=== PATIENT | female | born 1965 | race Caucasian/White ===

== ENCOUNTER 2020-11-05 11:38 | Outpatient (REF) | payer OTHER, SELFPAY | END 2020-11-05 11:39 | disposition home or self-care (01) | LOC: HO.HMGCLDS 11:38 | PROVIDERS: PCP Internal Medicine; Visit Provider Surgery | DX: Z13.89 Encounter for screening for other disorder (principal) ==

== ENCOUNTER 2020-11-06 07:03 | Outpatient (REF) | payer OTHER, SELFPAY ==
[2020-11-06 11:14] LABS: MANUAL DIFF FLAG NO
[2020-11-06 11:25] LABS: Basophils Absolute Auto 0.1 X10*3/uL (0.0-0.2); Basophils Percent Auto 0.8 % (0-2); Eosinophils Absolute Auto 0.2 X10*3/uL (0.0-0.4); Eosinophils Percent Auto 2.7 % (0-4); Hematocrit 42.4 % (37-47); Hemoglobin 13.5 g/dl (12.0-16.0); Imm Gran Abs Auto 0.02 X10*3/uL (0.00-0.03); Imm Gran Pct Auto 0.3 % (0.0-0.4); Lymphocytes Absolute Auto 2.4 X10*3/uL (1.2-4.9); Lymphocytes Percent Auto 36.7 % (20-40); Mean Corpuscular HGB Conc 31.8 g/dl (31.0-35.0); Mean Corpuscular Hemoglobin 30.5 pg (27.0-33.0); Mean Corpuscular Volume 95.7 fL (80-98); Mean Platelet Volume 10.4 fL (9.4-12.3); Monocytes Absolute Auto 0.7 X10*3/uL (0.1-1.2); Monocytes Percent Auto 10.6 % (2-11); Neutrophils Absolute Auto 3.3 X10*3/uL (2.0-8.3); Neutrophils Percent Auto 48.9 % (45-73); Platelet Count 294 X10*3/uL (160-400); Red Blood Count 4.43 X10*6/uL (4.20-5.50); Red Cell Distribution Width 13.1 % (11.0-16.0); White Blood Count 6.6 X10*3/uL (4.8-10.8)
[2020-11-06 11:39] LABS: Estimated Average Glucose 154 mg/dL
[2020-11-06 12:06] LABS: Alanine Aminotransferase 20 U/L (0-31); Albumin Level 3.8 g/dL (3.5-5.0); Alkaline Phosphatase 78 U/L (39-117); Anion Gap 14 (12-20); Aspartate Amino Transferase 14 U/L (5-31); Bilirubin Total 0.2 mg/dL (0.0-1.0); Blood Urea Nitrogen 8 mg/dL (9-16); Calcium 8.9 mg/dL (8.4-10.2); Carbon Dioxide 26 mmol/L (22-29); Chloride 103 mmol/L (96-108); Cholesterol 165 mg/dL; Estimated Glomerular Filt Rate > 60; Glucose Fasting 137 mg/dL (60-99); HDL Cholesterol 56 mg/dL; Iron 56 mcg/dL (30-160); LDL Cholesterol Calculated 95 mg/dl; Magnesium 1.9 mg/dL (1.6-2.6); Percent Iron Saturation 19 % (15-50); Potassium 4.4 mmol/l (3.3-5.1); Sodium 139 mmol/L (135-145); Total Iron Binding Capacity 301 mcg/dL (228-428); Total Protein 6.4 g/dL (6.5-8.0); Triglycerides 73 mg/dL; Unsaturated Iron Binding 245 ug/dL
[2020-11-06 12:07] LABS: Ferritin 66 ng/mL (10-250); Thyroid Stimulating Hormone 1.21 uIU/mL (0.32-4.0); Vitamin D 25-OH Total 23.1 ng/mL (>30)
[2020-11-06 12:14] LABS: Creatinine Urine 103.08 mg/dL; Microalbum/Creatinine Ratio Ur 5.8 ug/mg cr
[2020-11-06 13:17] LABS: Folate 9.5 ng/mL (> or = 4.0); Vitamin B12 485 pg/mL (200-900)
[2020-11-10 15:02] LABS: Cotinine <2 ng/mL; Nicotine <2 ng/mL
== END 2020-11-06 07:04 | disposition home or self-care (01) ==
LOC: HO.HMGCLDS 07:03
PROVIDERS: PCP Internal Medicine; Visit Provider Surgery
DX: Z01.818 Encounter for other preprocedural examination (principal); E66.01 Morbid (severe) obesity due to excess calories; E11.65 Type 2 diabetes mellitus with hyperglycemia
CPT/HCPCS: 36415; 80053; 80061; 80323; 82043; 82306; 82533; 82607; 82728; 82746; 83036; 83540; 83735; 84443; 85025

== ENCOUNTER → 2020-11-08 13:01 | Outpatient (BNVA) | payer OTHER, SELFPAY | PROVIDERS: PCP Internal Medicine; Referring Provider Internal Medicine; Visit Provider Internal Medicine Gastroenterology | DX: Z76.89 Persons encountering health services in other specified circumstances (principal) ==

== ENCOUNTER 2020-11-15 11:17 | Outpatient (REF) | payer OTHER, SELFPAY ==
--- NOTE | 2020-11-15 11:20 | US_ITS ---
EXAMINATION: US ABDOMEN COMPLETE CLINICAL INFORMATION: Unspecified abdominal pain. COMPARISON: None TECHNIQUE: Real-time imaging of the abdominal viscera. FINDINGS: PANCREAS: Normal. ABDOMINAL AORTA: The proximal, mid, and distal segments are normal in caliber. INFERIOR VENA CAVA: Visualized portions are normal. LIVER: There is diffuse increased liver parenchymal echogenicity. No focal hepatic mass is seen. The liver is normal in size and contour. No biliary ductal dilatation. GALLBLADDER: Normal. The gallbladder is physiologically distended without evidence of stones, sludge, polyps, wall thickening or pericholecystic fluid. COMMON BILE DUCT: Normal in caliber measuring 0.5 cm in diameter. RIGHT KIDNEY: Normal. No hydronephrosis. No renal calculi or focal parenchymal lesions. The kidney measures 12.5 cm in maximum dimension. LEFT KIDNEY: Normal. No hydronephrosis. No renal calculi or focal parenchymal lesions. The kidney measures 11.8 cm in maximum dimension. SPLEEN: Normal. The spleen measures 9.5 cm in maximum dimension. FREE FLUID: None. US/US abdomen complete IMPRESSION: There is generalized increase in hepatic echotexture, consistent with fatty infiltration or hepatocellular disease. Please correlate clinically. No focal hepatic mass or intrahepatic biliary dilatation is seen.
== END 2020-11-15 11:18 | disposition home or self-care (01) ==
LOC: HO.HMGCX 11:17
PROVIDERS: PCP Internal Medicine; Visit Provider Internal Medicine Gastroenterology
DX: K58.9 Irritable bowel syndrome, unspecified (principal)
CPT/HCPCS: 76700

== ENCOUNTER 2020-11-26 08:06 | Emergency (ER) | payer OTHER, SELFPAY ==
[2020-11-26 08:25] VITALS: BP 142/78; PULSE 74; RESP 18; TEMP 36.2; O2SAT 97; BMI 37.7
--- NOTE | 2020-11-26 09:19 | ECG_ITS ---
Test Reason : CHEST PAIN Blood Pressure : / mmHG Vent. Rate : 075 BPM Atrial Rate : 075 BPM P-R Int : 184 ms QRS Dur : 098 ms QT Int : 416 ms P-R-T Axes : 029 033 058 degrees QTc Int : 464 ms Normal sinus rhythm Normal ECG No previous ECGs available Referred By: Generic ED Physician Electronically Signed By:ZAHRAA RODRIGEZ
--- NOTE | 2020-11-26 09:22 | ED_ITS ---
HPI - Chest Pain General Chief Complaint: Chest Pain Stated Complaint: chest pain Time Seen by Provider: 11/26/20 09:22 Source: patient Mode of arrival: ambulatory Limitations: no limitations History of Present Illness HPI narrative: 54-year-old female who presents to the emergency department for evaluation chest pain. The patient states that she woke up this morning at 4:00 a.m. with chest pain. She points to the center and right anterior chest when asked to localize the pain. The pain is a sharp, constant pain which is worse with breathing. The pain is 7/10 at its worst. The pain radiates to her right shoulder blade. She had associated dizziness and nausea but no vomiting. She denied neck, jaw or arm radiation, she denied diaphoresis, shortness of breath or dyspnea on exertion. The patient has not noticed any swelling in her lower extremities and she has had no recent travel. She states that she has been having gallbladder issues and had an ultrasound that showed a distended gallbladder and she is scheduled to follow-up with a surgeon. The patient took 2 Advil prior to coming to the emergency department with no relief of her pain. She denied fever, chills, sore throat, loss of sense of taste or smell, abdominal pain, diarrhea, myalgias or arthralgias. Related Data Home Medications Medication Instructions Recorded Confirmed cholecalciferol (vitamin D3) 25 25 mcg PO DAILY 11/08/20 11/08/20 mcg (1,000 unit) capsule levothyroxine 150 mcg capsule 150 mcg PO DAILY 11/08/20 11/08/20 losartan 50 mg tablet 50 mg PO DAILY 11/08/20 11/08/20 lovastatin 20 mg tablet 20 mg PO DAILY 11/08/20 11/08/20 metformin 1,000 mg tablet 1,000 mg PO BID 11/08/20 11/08/20 Previous Rx's Medication Instructions Recorded omeprazole 20 mg capsule,delayed 20 mg PO DAILY 28 Days #28 cap 11/08/20 release Allergies Allergy/AdvReac Type Severity Reaction Status Date / Time No Known Allergies Allergy Unverified 08/15/20 15:43 [No Known Allergies*] Review of Systems Review of Systems: Yes all other systems are reviewed and are negative Constitutional: Constitutional: Reports as per HPI Eyes: Eyes: Reports as per HPI ENT: Reports as per HPI Cardiovascular: Cardiovascular: Reports as per HPI Respiratory: Respiratory: Reports as per HPI Gastrointestinal: Gastrointestinal: Reports as per HPI Genitourinary: Genitourinary: Reports as per HPI Musculoskeletal: Musculoskeletal: Reports as per HPI Integumentary/Breasts: Skin/Breast: Reports as per HPI Neurologic: Reports as per HPI and Reports Abnormal speech present Psychiatric: Psychiatric: Reports as per HPI Allergic/Immunologic: Allergic/Immunologic: Reports as per HPI [facility] Past Medical History Medical History Diabetes High cholesterol HTN (hypertension) Surgical History H/O knee surgery History of colonoscopy History of hysterectomy (~07/2007) Family History Family History Father Hx of type 2 diabetes mellitus History of high cholesterol Family history of high blood pressure Mother Hx of type 2 diabetes mellitus Family history of high blood pressure Social History Social History Alcohol intake: current Alcohol intake frequency: holidays/special occasions only Alcohol type: beer, wine, hard liquor and other Smoking Status: Former smoker Advance Directives: No Advance Directives Information Provided: No Physical Exam Vital Signs: Vital Signs: Last Vital Signs Temp 97.1 F 11/26/20 08:25 Pulse 66 11/26/20 12:53 Resp 18 11/26/20 08:25 BP 135/79 11/26/20 12:53 Pulse Ox 97 11/26/20 08:25 Body Mass Index 37.7 Const: General: cooperative and healthy appearing Nutritional Appearance: obese Orientation/consciousness: oriented to person and oriented to place Limitations: no limitations HENMT: Head: Yes normal to inspection, Yes normocephalic and Yes atraumatic Ears: external ears normal General nose exam: Normal external nose present Face and sinus: Yes normal facial exam Mouth: Normal oral and palatal mucosa present Throat: Yes posterior oropharynx normal Eyes: Periorbital: periorbital findings normal Eyelids: Yes eyelids normal Conjunctivae: conjunctivae normal Sclerae: sclerae normal Corneas: corneas normal Pupils: Equal, round and reactive pupils present Direct Ophthalmoscopy: normal light reflex Neck: Neck: Yes full ROM, Yes no lymphadenopathy, Yes no meningeal signs, Yes trachea midline and Yes supple Chest: Chest palpation & inspection: normal inspection of the chest and normal palpation of entire chest wall Resp: Effort & Inspection: normal respiratory effort and able to speak in complete sentences Auscultation: clear to auscultation bilaterally Cardio: Rate: regular rate Rhythm: regular rhythm Heart sounds: S1 normal heart sound present, S2 normal heart sound present and no murmurs GI: Inspection: Yes normal to inspection Palpation (GI): Soft to palpation, nontender, no guarding, not rigid and No hepatosplenomegaly present : General: Yes no CVA tenderness Back/Spine/Pelvis: Back: no CVA tenderness Cervical Spine: normal cervical lordosis Thoracic/Lumbar Spine: thoracic and lumbar spine normal to inspection Skin: Lesions: no lesions Rashes: no rashes Wounds: no wounds Neuro: General: oriented to person, oriented to place and no meningeal signs Cranial nerves: Yes Equal, round and reactive pupils present Cognition (Jose Luis ro): normal cognition Speech: Abnormal speech present Motor exam (neuro): 5/5 motor strength present throughout Extrem: General: Yes normal to inspection and Yes full ROM Psych: Appearance: well kempt Mental Status: mental status grossly normal Speech and movement: Normal speech and movement present Affect: normal affect Attitude: cooperative Thought process: Normal thought process present Thought content: Normal thought content present Course Course Course Narrative: 54-year-old female with history of diabetes hypertension hyperlipidemia neurofibromatosis who presents emergency department for evaluation of pleuritic like chest pain that came on suddenly at 4:00 a.m. and has been persistent. The pain does radiate to her back. Patient also has been having gallbladder issues for the past month. The patient's physical examination was unremarkable. EKG was normal. Concerned the patient's pain may be secondary to coronary artery disease, pulmonary embolism, costochondritis or pleurisy. I did order a cardiac workup and a D-dimer on the patient. The patient 2 baby aspirin, fentanyl 50 mcg IV, Zofran 4 mg IV normal saline x1 L. 1305: The patient's laboratory evaluation was normal with a nondetectable tropo frances and a non elevated D-dimer. Chest x-ray was unremarkable. The patient did get relief her pain with the IV Toradol but she states that the pain is coming back therefore she was given ibuprofen 600 mg orally. The patient's presentation is consistent with pleurisy and I did discuss this with her. She was discharged home with printed instructions and advised to take ibuprofen and Tylenol for her pain. MDM - Chest Pain Lab Data Result diagrams: 11/26/20 10:02 11/26/20 10:02 Labs: Lab Results 11/26/20 11/26/20 11/26/20 Range/Units 10:02 10:02 10:02 WBC 7.2 (4.8-10.8) X10*3/uL RBC 4.75 (4.20-5.50) X10*6/uL Hgb 14.5 (12.0-16.0) g/dl Hct 43.7 (37-47) % MCV 92.0 (80-98) fL MCH 30.5 (27.0-33.0) pg MCHC 33.2 (31.0-35.0) g/dl RDW 12.6 (11.0-16.0) % Plt Count 293 (160-400) X10*3/uL MPV 9.7 (9.4-12.3) fL Immature Gran % (Auto) 0.3 (0.0-0.4) % Neut % (Auto) 49.4 (45-73) % Lymph % (Auto) 35.7 (20-40) % Storey % (Auto) 11.8 H (2-11) % Eos % (Auto) 2.2 (0-4) % Baso % (Auto) 0.6 (0-2) % Lymph # (Auto) 2.6 (1.2-4.9) X10*3/uL Storey # (Auto) 0.9 (0.1-1.2) X10*3/uL Eos # (Auto) 0.2 (0.0-0.4) X10*3/uL Baso # (Auto) 0.0 (0.0-0.2) X10*3/uL Abs Immat Gran (auto) 0.02 (0.00-0.03) X10*3/uL Absolute Neuts (auto) 3.6 (2.0-8.3) X10*3/uL Absolute Nucleated RBC 0.000 (0.0-0.012) X10*3/uL Nucleated RBC % (auto) 0.0 (0.0-0.2) /100WBC PT 12.5 (10.8-13.0) SEC INR 1.1 (0.9-1.1) APTT 31.1 (24.1-38.0) SEC D-Dimer < 200 NG/ML Sodium 137 (135-145) mmol/L Potassium 5.1 (3.3-5.1) mmol/l Chloride 102 (96-108) mmol/L Carbon Dioxide 24 (22-29) mmol/L Anion Gap 16 (12-20) BUN 11 (9-16) mg/dL Creatinine 0.73 (0.5-1.4) mg/dL Estim Creat Clear Calc 113.5 Estimated GFR > 60 Random Glucose 135 H (60-115) mg/dL Calcium 9.2 (8.4-10.2) mg/dL Total Bilirubin 0.6 (0.0-1.0) mg/dL AST 25 D (5-31) U/L ALT 25 (0-31) U/L Alkaline Phosphatase 82 (39-117) U/L Troponin I High Sens (<3.5-17.0) ng/L Total Protein 7.3 (6.5-8.0) g/dL Albumin 4.2 (3.5-5.0) g/dL Lipase 15 (8-78) U/L 11/26/ Range/Units 10:02 WBC (4.8-10.8) X10*3/uL RBC (4.20-5.50) X10*6/uL Hgb (12.0-16.0) g/dl Hct (37-47) % MCV (80-98) fL MCH (27.0-33.0) pg MCHC (31.0-35.0) g/dl RDW (11.0-16.0) % Plt Count (160-400) X10*3/uL MPV (9.4-12.3) fL Immature Gran % (Auto) (0.0-0.4) % Neut % (Auto) (45-73) % Lymph % (Auto) (20-40) % Storey % (Auto) (2-11) % Eos % (Auto) (0-4) % Baso % (Auto) (0-2) % Lymph # (Auto) (1.2-4.9) X10*3/uL Storey # (Auto) (0.1-1.2) X10*3/uL Eos # (Auto) (0.0-0.4) X10*3/uL Baso # (Auto) (0.0-0.2) X10*3/uL Abs Immat Gran (auto) (0.00-0.03) X10*3/uL Absolute Neuts (auto) (2.0-8.3) X10*3/uL Absolute Nucleated RBC (0.0-0.012) X10*3/uL Nucleated RBC % (auto) (0.0-0.2) /100WBC PT (10.8-13.0) SEC INR (0.9-1.1) APTT (24.1-38.0) SEC D-Dimer NG/ML Sodium (135-145) mmol/L Potassium (3.3-5.1) mmol/l Chloride (96-108) mmol/L Carbon Dioxide (22-29) mmol/L Anion Gap (12-20) BUN (9-16) mg/dL Creatinine (0.5-1.4) mg/dL Estim Creat Clear Calc Estimated GFR Random Glucose (60-115) mg/dL Calcium (8.4-10.2) mg/dL Total Bilirubin (0.0-1.0) mg/dL AST (5-31) U/L ALT (0-31) U/L Alkaline Phosphatase (39-117) U/L Troponin I High Sens < 3.5 (<3.5-17.0) ng/L Total Protein (6.5-8.0) g/dL Albumin (3.5-5.0) g/dL Lipase (8-78) U/L ECG Data ECG #1: ECG interpretation date: 11/26/20 ECG interpretation time: 09:56 Prior ECG tracings: not available for review Interpretation: Normal sinus rhythm with a rate of 75, normal HI, QRS and QTC intervals, Q wave in lead 3, knee 1 with inverted T-wave in V1, no ST segment elevation, no ST segment depression, no ectopy, no old EKG for comparison, this is a normal EKG with no evidence for ischemia or myocardial inj ury. Discharge Plan Discharge Clinical Impression: Chest pain, pleuritic Patient Disposition: Home, Self-Care Instructions: Pleurisy (ED) Additional Instructions: Your EKG was unremarkable. Your troponin was nondetectable which suggests she did not have any heart injury and that your pain is not caused by your heart. Your D-dimer was normal which suggest that you do not have a blood clot in your lungs as the cause of your pain. Your chest x-ray was normal. Your presentation is consistent with pleurisy which is inflammation of the lining of the lung and is treated with anti-inflammatory medications. Take ibuprofen 200 mg pills, 3 pills every 6 hours as needed for pain. Take Tylenol (acetaminophen) 500 mg pills, 2 pills every 4 to 6 hours as needed for pain. Follow-up with your doctor in 2 days. Please return to the emergency department if your symptoms get worse or if you develop any symptoms that are concerning to you. No work until 12/02/2019 Prescriptions: No Action metformin 1,000 mg tablet 1,000 mg PO BID RF: 0 losartan 50 mg tablet 50 mg PO DAILY RF: 0 levothyroxine 150 mcg capsule 150 mcg PO DAILY RF: 0 lovastatin 20 mg tablet 20 mg PO DAILY RF: 0 cholecalciferol (vitamin D3) 25 mcg (1,000 unit) capsule 25 mcg PO DAILY RF: 0 omeprazole 20 mg capsule,delayed release(DR/EC) 20 mg PO DAILY 28 Days Qty: 28 RF: 1 Referrals: Rc Harrell MD [Primary Care Provider] - 2 days Stand Alone Forms: Work/School Release
--- NOTE | 2020-11-26 09:49 | XR_ITS ---
EXAMINATION: XR CHEST CLINICAL INFORMATION: Chest pain COMPARISON: None TECHNIQUE: 2 views of the chest were obtained. FINDINGS: No significant abnormality is noted involving the heart, lungs, mediastinum, bony thorax or soft tissues. XR/XR chest 2V IMPRESSION: Unremarkable examination.
[2020-11-26 10:12] VITALS: BP 120/82; PULSE 66
[2020-11-26 10:13] LABS: MANUAL DIFF FLAG NO
[2020-11-26] MEDS: 0.9 % Sodium Chloride 1,000 ML 999 ML IV (10:13)
[2020-11-26] MEDS: ondansetron HCL 4 MG/2 ML VIAL IVPUSH (10:13)
[2020-11-26] MEDS: fentaNYL citrate/PF 100 MCG/2 ML VIAL 25 MCG IVPUSH (10:13)
[2020-11-26] MEDS: Aspirin 81 MG TAB.CHEW 162 MG PO (10:13)
--- NOTE | 2020-11-26 10:14 | PC.NURSE ---
IV EST 22 R R FA. MEDICATED PER ORDERS
[2020-11-26 10:15] LABS: Basophils Percent Auto 0.6 % (0-2); Eosinophils Absolute Auto 0.2 X10*3/uL (0.0-0.4); Eosinophils Percent Auto 2.2 % (0-4); Hematocrit 43.7 % (37-47); Hemoglobin 14.5 g/dl (12.0-16.0); Imm Gran Abs Auto 0.02 X10*3/uL (0.00-0.03); Imm Gran Pct Auto 0.3 % (0.0-0.4); Lymphocytes Absolute Auto 2.6 X10*3/uL (1.2-4.9); Lymphocytes Percent Auto 35.7 % (20-40); Mean Corpuscular HGB Conc 33.2 g/dl (31.0-35.0); Mean Corpuscular Hemoglobin 30.5 pg (27.0-33.0); Mean Platelet Volume 9.7 fL (9.4-12.3); Monocytes Absolute Auto 0.9 X10*3/uL (0.1-1.2); Monocytes Percent Auto 11.8 % (2-11); Neutrophils Absolute Auto 3.6 X10*3/uL (2.0-8.3); Neutrophils Percent Auto 49.4 % (45-73); Platelet Count 293 X10*3/uL (160-400); Red Blood Count 4.75 X10*6/uL (4.20-5.50); Red Cell Distribution Width 12.6 % (11.0-16.0); White Blood Count 7.2 X10*3/uL (4.8-10.8)
[2020-11-26 10:27] LABS: INTERNATIONAL NORM RATIO 1.1 (0.9-1.1); Prothrombin Time 12.5 SEC (10.8-13.0)
[2020-11-26 10:30] LABS: Partial Thromboplastin Time 31.1 SEC (24.1-38.0)
[2020-11-26 10:39] LABS: D Dimer < 200 NG/ML
[2020-11-26 11:00] LABS: Troponin-I High Sensitivity < 3.5 ng/L (<3.5-17.0)
[2020-11-26 11:02] LABS: Alanine Aminotransferase 25 U/L (0-31); Albumin Level 4.2 g/dL (3.5-5.0); Alkaline Phosphatase 82 U/L (39-117); Anion Gap 16 (12-20); Aspartate Amino Transferase 25 U/L (5-31); Bilirubin Total 0.6 mg/dL (0.0-1.0); Blood Urea Nitrogen 11 mg/dL (9-16); Calcium 9.2 mg/dL (8.4-10.2); Carbon Dioxide 24 mmol/L (22-29); Chloride 102 mmol/L (96-108); Creatinine Clr Calc Pharmacy 113.5; Estimated Glomerular Filt Rate > 60; Glucose Random 135 mg/dL (60-115); Lipase 15 U/L (8-78); Potassium 5.1 mmol/l (3.3-5.1); Sodium 137 mmol/L (135-145); Total Protein 7.3 g/dL (6.5-8.0)
--- NOTE | 2020-11-26 11:02 | PC.NURSE ---
PAIN TO 3/10 AFTER MEDS
[2020-11-26 11:21] VITALS: BP 139/75; PULSE 69
[2020-11-26 12:53] VITALS: BP 135/79; PULSE 66
== END 2020-11-26 13:22 | disposition home or self-care (01) ==
PROVIDERS: Emergency Provider Emergency Medicine Emergency Medical Services; PCP Internal Medicine
DX: R07.81 Pleurodynia (principal); R42 Dizziness and giddiness; R11.0 Nausea; Z79.899 Other long term (current) drug therapy
CPT/HCPCS: 36415; 71046; 80053; 83690; 84484; 85025; 85379; 85610; 85730; 93005; 96361; 96374; 96375; 99283; 99284; J2405; J3010

== ENCOUNTER 2020-12-06 15:02 | Outpatient (REF) | payer OTHER, SELFPAY ==
[2020-12-07 14:17] LABS: H Pylori Breath Test NOT DETECTED (NOT DETECTED)
== END 2020-12-06 15:03 | disposition home or self-care (01) ==
LOC: HO.LNP 15:02
PROVIDERS: PCP Internal Medicine; Visit Provider Internal Medicine Gastroenterology
DX: K58.9 Irritable bowel syndrome, unspecified (principal)
CPT/HCPCS: 83013

== ENCOUNTER 2020-12-09 07:18 | Outpatient (REF) | payer OTHER, SELFPAY ==
[2020-12-09 07:30] LABS: COVID-19 Test Positive (Negative)
== END 2020-12-09 07:19 | disposition home or self-care (01) ==
LOC: HO.EMPCOV 07:18
PROVIDERS: Visit Provider Internal Medicine
DX: Z20.822 Contact with and (suspected) exposure to COVID-19 (principal)
CPT/HCPCS: 36415; 87635; C9803

== ENCOUNTER → 2020-12-26 14:39 | Outpatient (BNVA) | payer OTHER, SELFPAY | PROVIDERS: PCP Internal Medicine; Visit Provider Internal Medicine Gastroenterology ==

== ENCOUNTER 2021-02-04 09:15 | Day surgery (SDC) | payer OTHER, SELFPAY ==
[2021-01-30 14:53] VITALS: BMI 35.9
--- NOTE | 2021-02-03 10:47 | HO.ANESPROP2 ---
Documented by User: Althea Lee 02/03/21 10:49 HPI - Anesthesia Eval Consult details Narrative: 55yo F for Colonoscopy PMFSH Active Problems Active Problems: All Active Problems (Updated 01/30/21 @ 14:52 by Krystle Xie) Diabetes mellitus (Acute) Hypertension (Acute) Vitamin D deficiency (Acute) Neurofibromatosis (Acute) Abdominal pain (Acute) Diarrhea (Acute) IBS (irritable bowel syndrome) (Acute) Past Medical History Medical History Diabetes Fatty liver High cholesterol History of COVID-19 HTN (hypertension) Hypothyroid IBS (irritable bowel syndrome) Neurofibroma of multiple sites PONV (postoperative nausea and vomiting) Family History Family History Father Hx of type 2 diabetes mellitus History of high cholesterol Family history of high blood pressure Mother Hx of type 2 diabetes mellitus Family history of high blood pressure Surgical History Surgical History H/O knee surgery History of colonoscopy History of hysterectomy Social History Social History Household Members: Spouse and Children Are you a primary physician assistant primary care to a significant other at home: No Do you presently have visiting nurse or other home services: No Alcohol intake: current Alcohol intake frequency: holidays/special occasions only Alcohol type: beer, wine, hard liquor and other Smoking Status: Former smoker Years Smoked: 5 years Smoking Quit Date: 6 yrs ago Use of substances other than those prescribed or required for medical reasons: No Have you been hit, kicked, punched, or otherwise hurt by someone within the past year? 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 Allergies Allergy/AdvReac Type Severity Reaction Status Date / Time No Known Allergies Allergy Verified 02/04/21 09:59 [No Known Allergies*] Home Medications Medication Instructions Recorded Confirmed Last Taken Type cholecalciferol (vitamin D3) 25 25 mcg PO DAILY 11/08/20 01/30/21 Unknown History mcg (1,000 unit) capsule levothyroxine 150 mcg capsule 150 mcg PO DAILY 11/08/20 01/30/21 02/04/21 History losartan 50 mg tablet 50 mg PO DAILY 11/08/20 01/30/21 Unknown History lovastatin 20 mg tablet 20 mg PO DAILY 11/08/20 01/30/21 Unknown History metformin 1,000 mg tablet 1,000 mg PO BID 11/08/20 01/30/21 Unknown History Exam Exam Date and Time: February 03, 2021 1047 Height,Weight and Vital Signs: Height 5 ft 7 in Weight 103.873 kg Narrative Narrative: EKG 10/2020 Normal sinus rhythm Normal ECG No previous ECGs available Assessment and Plan Assessment Anesthesia Assessment: Chart Reviewed Documented by User: Bernard Salcedo 02/04/21 10:13 [facility] Past Medical History Medical History Diabetes Fatty liver High cholesterol History of COVID-19 HTN (hypertension) Hypothyroid IBS (irritable bowel syndrome) Neurofibroma of multiple sites PONV (postoperative nausea and vomiting) Family History Family History Father Hx of type 2 diabetes mellitus History of high cholesterol Family history of high blood pressure Mother Hx of type 2 diabetes mellitus Family history of high blood pressure Surgical History Surgical History H/O knee surgery History of colonoscopy History of hysterectomy Social History Social History Household Members: Spouse and Children Are you a primary physician assistant primary care to a significant other at home: No Do you presently have visiting nurse or other home services: No Alcohol intake: current Alcohol intake frequency: holidays/special occasions only Alcohol type: beer, wine, hard liquor and other Smoking Status: Former smoker Years Smoked: 5 years Smoking Quit Date: 6 yrs ago Use of substances other than those prescribed or required for medical reasons: No Have you been hit, kicked, punched, or otherwise hurt by someone within the past year? 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 Allergies Allergy/AdvReac Type Severity Reaction Status Date / Time No Known Allergies Allergy Verified 02/04/21 09:59 [No Known Allergies*] Home Medications Medication Instructions Recorded Confirmed Last Taken Type cholecalciferol (vitamin D3) 25 25 mcg PO DAILY 11/08/20 01/30/21 Unknown History mcg (1,000 unit) capsule levothyroxine 150 mcg capsule 150 mcg PO DAILY 11/08/20 01/30/21 02/04/21 History losartan 50 mg tablet 50 mg PO DAILY 11/08/20 01/30/21 Unknown History lovastatin 20 mg tablet 20 mg PO DAILY 11/08/20 01/30/21 Unknown History metformin 1,000 mg tablet 1,000 mg PO BID 11/08/20 01/30/21 Unknown History Exam Airway Mallampati Class: III TM Dist: >3cm Neck ROM: Full Loose/Missing/Broken Teeth: Yes (many broken/chipped, porr dentition) Heart: [id number] Lungs: cta b/l Assessment and Plan Assessment Anesthesia Assessment: Anesthesia Plan Discussed, Smoking Cess. Discussed and Chart Reviewed Final Anesthetic Review NPO: Yes ASA Class: III Final Preanesthetic Review: No Changes in Pt Med Stat, Meds/Allgs Chart Reviewed, Consent Obtained/Reviewed and Anes Risks/Benef Reviewed Patient Risk: Intermediate Procedure Risk: Low Assessment/Block/Sedation in SS: Assess/Block/Sedation-SS Anesthetic Plan Anesthetic Plan: MAC: and Agree w/ Assess. and Plan Disposition: Standard PACU
[2021-02-04 09:59] VITALS: BP 146/87; PULSE 86; RESP 16; TEMP 37.5; O2SAT 96
[2021-02-04 10:06] LABS: Glucose, Whole Blood 130 mg/dL (60-115)
--- NOTE | 2021-02-04 10:10 | P.HPSUR_ITS ---
Pre-Procedural Eval Section A The patient is an INPATIENT: No The History & Physical has been completed within 30 days and I have reviewed it.: No Section B Chief Complaint: Diarrhea, IBS Details of Present Illness: 55 Year old female ([employer] [facility] [place] [place] employee) self referred to GI for abdominal pain and diarrhea and for H Pylori breath test. Patient has a known history of diarrhea predominant IBS for the past several years. She noted recent onset of right-sided abdominal pain with diarrhea - Abdominal pain has resolved and continues to have diarrhea. Diagnosed with COVID pneumonia on 12/09/20 and is recovering.. Patient has symptoms can be due to peptic ulcer disease, celiac disease, pancreatic or biliary source of pain. Patient was advised to stop milk products for 2 weeks the and check an abdominal ultrasound, stool and lab tests She was advised to start omeprazole 20 mg once daily for pain and take a fiber supplement once a day for diarrhea. 11/17 abdominal ultrasound showed fatty liver. Relevant Family History (Specify if Yes): No Relevant Social History: Tobacco Use Present Medications: see Short Stay Collaborative assessment Medical History: Significant History (Diabetes High cholesterol HTN (hypertension)) History of Previous Operations: Relevant previous surgery/procedure and date(s) (H/O knee surgery History of colonoscopy History of hysterectomy (~07/2007)) Allergies: Allergies Allergy/AdvReac Type Severity Reaction Status Date / Time No Known Allergies Allergy Verified 02/04/21 09:59 [No Known Allergies*] Review of Systems Sugical H&P ROS: Negative: Constitution, Cardiovascular and Respiratory and Yes, Specify: Gastrointestinal (abdominal pain, diarrhea) Exam Surgical H&P Exam: Normal: Heart, Normal: Lungs, Normal: Extremities and Normal: Abdomen Plan Diagnosis/Plan: Unchanged I have reviewed the history and physical and performed a pertinent physical examination on my patient. No changes have occurred unless specified.
--- NOTE | 2021-02-04 10:10 | W.PM.OPN ---
Operative Note Operative Note Date of Service: 02/04/21 Narrative: Pre-op diagnosis: Colon cancer screening, abdominal pain, diarrhea Post-op diagnosis: other (Colon polyp, diverticulosis, hemorrhoids) Procedure: COLONOSCOPY TILL CECUM WITH BIOPSIES Consent: Indications for the procedure and potential complications of bleeding, perforation, reaction to medications and missed diagnosis were discussed with the patient and informed consent was obtained. Instrument: Olympus PCF H 190 L variable stiffness pediatric colonoscope Monitoring: Vital signs and clinical assessment, intermittent blood pressure monitoring, continuous EKG monitoring, Pulse oximetry and Carbon Dioxide monitoring were done throughout the procedure. Colon withdrawl time was 22 minutes. Procedure: The patient was placed in the left lateral decubitis position and pre-procedure medications were administered. After a digital rectal examination of the ano-rectum, the video colonoscope was inserted into the rectum and advanced through the colon to the cecum. The colonoscope was slowly withdrawn in a retrograde panoramic fashion and the colon mucosa was carefully examined including a retroflexed view of the rectum. Findings and interventions are described below. Procedure Difficulty: LLQ pressure was applied to intubate the cecum Findings: Terminal Ileum: Distal 4-5 cms was examined and appeared normal Cecum: Normal Ascending Colon: Nodular appearing mucosa - random biopsies were obtained. Transverse Colon: Normal Descending Colon: Normal Sigmoid Colon: ? 5 mm polyp versus fold - biopsied. Moderate diverticulosis Rectum: Normal Ano-rectum: Moderate internal hemorrhoids Colon preparation: Good after copious irrigation Impression and Post Procedure Diagnosis: Colonoscopy Findings: One polyp versus fold was biopsied. Random biopsies were obtained from the right and left colon. Moderate diverticulosis seen in the sigmoid colon Moderate hemorrhoids on retroflexed exam. Plan: Await pathology results Patient has an appointment on 02/13/21 in the GI Clinic with Paty Meza M.D.. Repeat Colonoscopy interval based on path results - in 3-5 years if polyps are adenomatous and 10 years if polyps are hyperplastic. Above findings were reviewed with the patient and colon polyps and diverticulosis handouts were given in the discharge area Surgeon: Paty Meza MD Anesthesia: MAC (Elda Prasad CRNA & Dr Salcedo) Videotape Editor: Gina Bliss Estimated blood loss (mL): 0 Pathology: other (A- RANDOM RIGHT COLON BIOPSIES- R/O MICROSCOPIC COLITIS B- SIGMOID POLYP C- RANDOM LEFT COLON BIOPSY) Condition: stable Disposition: PACU
[2021-02-04] MEDS: Lactated Ringers 1,000 ML 100 ML IVCONT (10:16)
[2021-02-04 11:00] VITALS: BP 96/53; PULSE 84; RESP 14; TEMP 36.9; O2SAT 96
[2021-02-04 11:15] VITALS: BP 105/63; PULSE 89; RESP 20; O2SAT 98
== END 2021-02-04 11:40 ==
LOC: HO.SSS 09:16
PROVIDERS: PCP Internal Medicine; Visit Provider Internal Medicine Gastroenterology
PROC: 0DJD8ZZ Inspection of Lower Intestinal Tract, Via Natural or Artificial Opening Endoscopic (ICD-10-PCS; CPT 45378; principal; 2021-02-04 10:50)
DX: R10.9 Unspecified abdominal pain (principal); R19.7 Diarrhea, unspecified; K58.9 Irritable bowel syndrome, unspecified; K63.5 Polyp of colon; K57.30 Diverticulosis of large intestine without perforation or abscess without bleeding; K64.8 Other hemorrhoids; E11.9 Type 2 diabetes mellitus without complications; I10 Essential (primary) hypertension; Z86.16 Personal history of COVID-19; Z87.01 Personal history of pneumonia (recurrent); Z87.891 Personal history of nicotine dependence
CPT/HCPCS: 45380; 82947; 88305; J2405; J2765

== ENCOUNTER → 2021-04-07 14:45 | Outpatient (BNVA) | payer OTHER, SELFPAY | PROVIDERS: PCP Internal Medicine; Visit Provider Internal Medicine Gastroenterology ==

== ENCOUNTER 2021-04-09 14:55 | Outpatient (REF) | payer OTHER, SELFPAY ==
--- NOTE | ~2021-04-09 | XR_ITS ---
EXAMINATION: XR CHEST CLINICAL INFORMATION: Preop. Obesity. COMPARISON: Previous chest x-rays most recent October 2020 TECHNIQUE: 2 views of the chest were obtained. FINDINGS: The cardiac and mediastinal contours are stable. The lungs are clear. There is no pleural effusion or pneumothorax. There is a mild thoracolumbar scoliosis. Bony structures are otherwise unremarkable. XR/XR chest 2V IMPRESSION: No evidence for acute disease in the chest.
--- NOTE | 2021-04-09 15:15 | ECG_ITS ---
Test Reason : PREOP Blood Pressure : / mmHG Vent. Rate : 078 BPM Atrial Rate : 078 BPM P-R Int : 180 ms QRS Dur : 104 ms QT Int : 396 ms P-R-T Axes : 044 044 061 degrees QTc Int : 451 ms Normal sinus rhythm Normal ECG When compared with ECG of 26-NOV-2020 09:20, No significant change was found Referred By: Flakita Natarajan Electronically Signed By:SUSANA STERN MD
[2021-04-09 15:57] LABS: Appearance Urine CLEAR; Color Urine YELLOW; Glucose Urine UA NEG (NEG); Leukocyte Esterase Urine NEG (NEG); Nitrite Urine NEG (NEG); PH 5.5 (5.0-8.0); Urine Blood TRACE (NEG); Urine Ketones NEG (NEG); Urine Protein NEG (NEG-TRACE)
[2021-04-09 16:03] LABS: Hematocrit 42.2 % (37-47); Hemoglobin 13.8 g/dl (12.0-16.0); Mean Corpuscular HGB Conc 32.7 g/dl (31.0-35.0); Mean Corpuscular Hemoglobin 30.4 pg (27.0-33.0); Mean Platelet Volume 10.5 fL (9.4-12.3); Platelet Count 285 X10*3/uL (160-400); Red Blood Count 4.54 X10*6/uL (4.20-5.50); White Blood Count 10.2 X10*3/uL (4.8-10.8)
[2021-04-09 16:04] LABS: Bacteria Urine 2+ /LPF; RBC Urine 0-2 /HPF (0); Squamous Epithelial Cell Urine 1+ /LPF; WBC Urine 0 /HPF (0-4)
[2021-04-09 16:05] LABS: INTERNATIONAL NORM RATIO 1.1 (0.9-1.1); Prothrombin Time 12.8 SEC (10.8-13.0)
[2021-04-09 16:37] LABS: Albumin Level 4.2 g/dL (3.5-5.0); Anion Gap 15 (12-20); Blood Urea Nitrogen 15 mg/dL (9-16); Carbon Dioxide 25 mmol/L (22-29); Chloride 100 mmol/L (96-108); Estimated Glomerular Filt Rate > 60; Potassium 4.2 mmol/L (3.3-5.1); Sodium 136 mmol/L (135-145)
== END 2021-04-09 14:56 | disposition home or self-care (01) ==
LOC: HO.LAB 14:55
PROVIDERS: PCP Internal Medicine; Visit Provider Surgery
DX: Z01.818 Encounter for other preprocedural examination (principal); E66.01 Morbid (severe) obesity due to excess calories
CPT/HCPCS: 36415; 71046; 80051; 81001; 82040; 82565; 84520; 85027; 85610; 93005

== ENCOUNTER 2021-05-14 10:00 | Outpatient (REF) | payer OTHER, SELFPAY ==
--- NOTE | ~2021-05-14 | US_ITS ---
EXAMINATION: US VENOUS ULTRASOUND WITH DOPPLER LOWER EXTREMITY, RIGHT CLINICAL INFORMATION: Knee pain COMPARISON: None TECHNIQUE: Ultrasound of the deep veins is performed from the hip to the calf with compression sonography and color and pulse Doppler assessment. Spectral analysis with color-flow imaging is performed. FINDINGS: There is normal venous compression and respiratory variation and augmented flow. The visualized common femoral vein, superficial femoral vein, profunda femoral vein, popliteal vein, and the trifurcation region shows no evidence of deep venous thrombosis. There is a 4.7 x 1.1 x 2 cm popliteal fossa cyst. US/US venous duplex LE RT IMPRESSION: No DVT demonstrated in the right lower extremity. Herzog's cyst.
== END 2021-05-14 10:01 | disposition home or self-care (01) ==
LOC: HO.US 10:00
PROVIDERS: Visit Provider Nurse Practitioner Family
DX: M25.561 Pain in right knee (principal); M79.661 Pain in right lower leg
CPT/HCPCS: 93971

== ENCOUNTER 2021-08-15 06:00 | Outpatient (REF) | payer OTHER, SELFPAY ==
[2021-08-15 08:04] LABS: Alanine Aminotransferase 19 U/L (0-31); Albumin Level 3.9 g/dL (3.5-5.0); Alkaline Phosphatase 86 U/L (39-117); Anion Gap 12 (12-20); Aspartate Amino Transferase 15 U/L (5-31); Bilirubin Total 0.7 mg/dL (0.0-1.0); Blood Urea Nitrogen 12 mg/dL (9-16); Calcium 9.2 mg/dL (8.4-10.2); Carbon Dioxide 26 mmol/L (22-29); Chloride 105 mmol/L (96-108); Cholesterol 200 mg/dL; Estimated Glomerular Filt Rate > 60; Glucose Random 138 mg/dL (60-115); HDL Cholesterol 61 mg/dL; LDL Cholesterol Calculated 124 mg/dl; Potassium 4.8 mmol/L (3.3-5.1); Sodium 138 mmol/L (135-145); Total Protein 6.3 g/dL (6.5-8.0); Triglycerides 79 mg/dL
[2021-08-15 08:26] LABS: Thyroid Stimulating Hormone 0.96 uIU/mL (0.32-4.0)
[2021-08-15 09:10] LABS: Creatinine Urine 62.14 mg/dL; Microalbumin Urine < 5.0 mg/L
== END 2021-08-15 06:01 | disposition home or self-care (01) ==
LOC: HO.LAB 06:00
PROVIDERS: PCP Internal Medicine; Visit Provider Internal Medicine
DX: E03.9 Hypothyroidism, unspecified (principal)
CPT/HCPCS: 36415; 80053; 80061; 82043; 84443

== ENCOUNTER → 2021-12-05 11:51 | Outpatient (BNVA) | payer OTHER, SELFPAY | PROVIDERS: PCP Internal Medicine; Visit Provider Physician Assistant Medical | DX: Z13.89 Encounter for screening for other disorder (principal) | CPT/HCPCS: 73130; 99203 ==

== ENCOUNTER 2021-12-06 08:07 | Outpatient (REF) | payer OTHER, SELFPAY ==
--- NOTE | ~2021-12-06 | MM_ITS ---
EXAMINATION: MM SCREENING DIGITAL BREAST TOMOSYNTHESIS, BILATERAL CLINICAL INFORMATION: Screening. Asymptomatic. The lifetime risk of breast cancer based on the Tyrer-Cuzick Model is 8%. COMPARISON: Mammography: 06/02/2012 TECHNIQUE: Digital breast tomosynthesis is performed in both the craniocaudal and mediolateral oblique views along with computer-aided detection (CAD). Synthesized 2D images are generated from the tomosynthesis. FINDINGS: There are scattered areas of fibroglandular density (ACR BI-RADS breast composition Category b). There are no significant masses, abnormal calcifications, or other abnormalities. Parenchymal pattern is similar to prior exam. The axilla and skin contours are unremarkable. No significant changes. MM/MM tomosynthesis screening BI IMPRESSION: No mammographic evidence of malignancy. ASSESSMENT: BI-RADS 1: Negative RECOMMENDATION: Routine annual mammography screening. This patient's information was entered into a reminder system with a target due date for their next mammogram.
== END 2021-12-06 08:08 | disposition home or self-care (01) ==
LOC: HO.MAMMO 08:07
PROVIDERS: Visit Provider Internal Medicine
DX: Z12.31 Encounter for screening mammogram for malignant neoplasm of breast (principal)
CPT/HCPCS: 77063; 77067

== ENCOUNTER 2022-02-16 14:35 | Outpatient (REF) | payer OTHER, SELFPAY ==
[2022-02-16 16:54] LABS: MANUAL DIFF FLAG NO
[2022-02-16 16:59] LABS: Basophils Percent Auto 0.4 % (0-2); Eosinophils Absolute Auto 0.2 X10*3/uL (0.0-0.4); Eosinophils Percent Auto 2.8 % (0-4); Hematocrit 42.3 % (37.0-47.0); Hemoglobin 13.7 g/dl (12.0-16.0); Imm Gran Abs Auto 0.04 X10*3/uL (0.00-0.03); Imm Gran Pct Auto 0.5 % (0.0-0.4); Lymphocytes Absolute Auto 2.9 X10*3/uL (1.2-4.9); Lymphocytes Percent Auto 34.1 % (20-40); Mean Corpuscular HGB Conc 32.4 g/dl (31.0-35.0); Mean Corpuscular Hemoglobin 30.2 pg (27.0-33.0); Mean Corpuscular Volume 93.4 fL (80.0-98.0); Monocytes Absolute Auto 0.8 X10*3/uL (0.1-1.2); Monocytes Percent Auto 9.1 % (2-11); Neutrophils Absolute Auto 4.6 x10*3/uL (2.0-8.3); Neutrophils Percent Auto 53.1 % (45-73); Platelet Count 278 X10*3/uL (160-400); Red Blood Count 4.53 X10*6/uL (4.20-5.50); White Blood Count 8.6 X10*3/uL (4.8-10.8)
[2022-02-16 17:06] LABS: Prothrombin Time 11.7 SEC (9.9-13.0)
[2022-02-16 17:09] LABS: Cholesterol 196 mg/dL; HDL Cholesterol 55 mg/dL; LDL Cholesterol Calculated 107 mg/dl; Triglycerides 172 mg/dL
[2022-02-18 08:19] LABS: ~HepC Num1 0.07 S/CO (0.00-0.79); ~Hepatitis C Antibody Nonreactive (Nonreactive)
== END 2022-02-16 14:36 | disposition home or self-care (01) ==
LOC: HO.HMGCLDS 14:35
PROVIDERS: PCP Internal Medicine; Visit Provider Internal Medicine
DX: Z11.59 Encounter for screening for other viral diseases (principal); R58 Hemorrhage, not elsewhere classified; E78.5 Hyperlipidemia, unspecified
CPT/HCPCS: 36415; 80061; 85025; 85610; 85730; 86803

== ENCOUNTER 2022-10-10 08:07 | Outpatient (REF) | payer OTHER, SELFPAY ==
[2022-10-10 12:23] LABS: Creatinine Urine 162.61 mg/dL; Microalbum/Creatinine Ratio Ur 5.5 ug/mg cr
[2022-10-10 12:28] LABS: Thyroid Stimulating Hormone 0.05 uIU/mL (0.32-4.0)
[2022-10-10 12:29] LABS: Alanine Aminotransferase 16 U/L (0-31); Albumin Level 4.1 g/dL (3.5-5.0); Alkaline Phosphatase 83 U/L (39-117); Anion Gap 14 (12-20); Aspartate Amino Transferase 13 U/L (5-31); Bilirubin Total 0.6 mg/dL (0.0-1.0); Blood Urea Nitrogen 10 mg/dL (9-16); Calcium 9.5 mg/dL (8.4-10.2); Carbon Dioxide 24 mmol/L (22-29); Chloride 107 mmol/L (96-108); Cholesterol 126 mg/dL; Estimated Glomerular Filt Rate > 60; Glucose Random 112 mg/dL (60-115); HDL Cholesterol 44 mg/dL; LDL Cholesterol Calculated 68 mg/dl; Potassium 4.5 mmol/L (3.3-5.1); Sodium 140 mmol/L (135-145); Total Protein 6.5 g/dL (6.5-8.0); Triglycerides 73 mg/dL
== END 2022-10-10 08:08 | disposition home or self-care (01) ==
LOC: HO.HMGCLDS 08:07
PROVIDERS: PCP Internal Medicine; Visit Provider Physician Assistant Medical
DX: E11.9 Type 2 diabetes mellitus without complications (principal); E78.5 Hyperlipidemia, unspecified; E03.9 Hypothyroidism, unspecified
CPT/HCPCS: 36415; 80053; 80061; 82043; 84443

== ENCOUNTER 2022-12-26 07:32 | Outpatient (REF) | payer OTHER, SELFPAY ==
--- NOTE | ~2022-12-26 | MM_ITS ---
EXAMINATION: MM SCREENING DIGITAL BREAST TOMOSYNTHESIS, BILATERAL CLINICAL INFORMATION: Screening. Asymptomatic. The lifetime risk of breast cancer based on the Tyrer-Cuzick Model is 8%. COMPARISON: Mammography: 12/06/2021; outside mammography 01/13/2020, 01/09/2019, 04/29/2017 ([facility]) TECHNIQUE: Digital breast tomosynthesis is performed in both the craniocaudal and mediolateral oblique views along with computer-aided detection (CAD). Synthesized 2D images are generated from the tomosynthesis. FINDINGS: There are scattered areas of fibroglandular density (ACR BI-RADS breast composition Category b). There is no significant mass or architectural abnormality or developing density. No abnormal calcifications. Minor parenchymal asymmetry anterior upper outer left breast is similar to prior exams. The axilla are unremarkable. MM/MM tomosynthesis screening BI IMPRESSION: No mammographic evidence of malignancy. ASSESSMENT: BI-RADS 2: Benign RECOMMENDATION: Routine annual mammography screening. This patient's information was entered into a reminder system with a target due date for their next mammogram.
== END 2022-12-26 07:33 | disposition home or self-care (01) ==
LOC: HO.MAMMO 07:32
PROVIDERS: PCP Internal Medicine; Visit Provider Internal Medicine
DX: Z12.31 Encounter for screening mammogram for malignant neoplasm of breast (principal)
CPT/HCPCS: 77063; 77067

== ENCOUNTER → 2023-02-01 15:15 | Outpatient (BNVA) | payer OTHER, SELFPAY | PROVIDERS: PCP Internal Medicine; Referring Provider Internal Medicine; Visit Provider Physician Assistant | DX: Z13.89 Encounter for screening for other disorder (principal) ==

== ENCOUNTER 2023-02-01 15:57 | Outpatient (REF) | payer OTHER, SELFPAY ==
[2023-02-01 17:05] LABS: Alanine Aminotransferase 17 U/L (0-31); Albumin Level 4.1 g/dL (3.5-5.0); Alkaline Phosphatase 92 U/L (39-117); Anion Gap 12 (12-20); Aspartate Amino Transferase 15 U/L (5-31); Bilirubin Total 1.1 mg/dL (0.0-1.0); Blood Urea Nitrogen 9 mg/dL (9-16); Calcium 9.5 mg/dL (8.4-10.2); Carbon Dioxide 28 mmol/L (22-29); Chloride 104 mmol/L (96-108); Cholesterol 140 mg/dL; Estimated Glomerular Filt Rate > 60; Glucose Random 109 mg/dL (60-115); HDL Cholesterol 49 mg/dL; LDL Cholesterol Calculated 73 mg/dl; Potassium 4.1 mmol/L (3.3-5.1); Sodium 140 mmol/L (135-145); Total Protein 6.4 g/dL (6.5-8.0); Triglycerides 93 mg/dL
[2023-02-01 17:21] LABS: Free T4 (Free Thyroxine) 1.38 ng/dL (0.71-1.85); Thyroid Stimulating Hormone 0.31 uIU/mL (0.32-4.0)
== END 2023-02-01 15:58 | disposition home or self-care (01) ==
LOC: HO.LAB 15:57
PROVIDERS: PCP Internal Medicine; Visit Provider Internal Medicine
DX: E78.5 Hyperlipidemia, unspecified (principal); E03.9 Hypothyroidism, unspecified
CPT/HCPCS: 36415; 80053; 80061; 84439; 84443

== ENCOUNTER → 2023-03-01 15:08 | Outpatient (BNVA) | payer OTHER, SELFPAY | PROVIDERS: PCP Internal Medicine; Referring Provider Internal Medicine; Visit Provider Physician Assistant Surgical | DX: Z13.89 Encounter for screening for other disorder (principal) ==

== ENCOUNTER 2023-03-16 15:02 | Outpatient (REF) | payer OTHER, SELFPAY ==
[2023-03-16 16:59] LABS: MANUAL DIFF FLAG NO
[2023-03-16 17:07] LABS: Basophils Absolute Auto 0.1 X10*3/uL (0.0-0.2); Basophils Percent Auto 0.5 % (0-2); Eosinophils Absolute Auto 0.2 X10*3/uL (0.0-0.4); Eosinophils Percent Auto 1.7 % (0-4); Hematocrit 40.5 % (37.0-47.0); Hemoglobin 13.1 g/dl (12.0-16.0); Imm Gran Abs Auto 0.03 X10*3/uL (0.00-0.03); Imm Gran Pct Auto 0.3 % (0.0-0.4); Lymphocytes Absolute Auto 3.1 X10*3/uL (1.2-4.9); Lymphocytes Percent Auto 32.2 % (20-40); Mean Corpuscular HGB Conc 32.3 g/dl (31.0-35.0); Mean Corpuscular Hemoglobin 30.8 pg (27.0-33.0); Mean Corpuscular Volume 95.3 fL (80.0-98.0); Mean Platelet Volume 10.4 fL (9.4-12.3); Monocytes Absolute Auto 0.9 X10*3/uL (0.1-1.2); Monocytes Percent Auto 9.3 % (2-11); Neutrophils Absolute Auto 5.4 x10*3/uL (2.0-8.3); Platelet Count 335 X10*3/uL (160-400); Red Blood Count 4.25 X10*6/uL (4.20-5.50); Red Cell Distribution Width 13.2 % (11.0-16.0); White Blood Count 9.7 X10*3/uL (4.8-10.8)
[2023-03-16 17:32] LABS: C Reactive Protein < 0.04 mg/dL (< or = 0.50); Iron 38 mcg/dL (30-160); Percent Iron Saturation 13 % (15-50); Total Iron Binding Capacity 303 mcg/dL (228-428); Unsaturated Iron Binding 265 ug/dL
[2023-03-16 17:54] LABS: Ferritin 13 ng/mL (10-250); Vitamin B12 954 pg/mL (200-900); Vitamin D 25-OH Total 35.3 ng/mL (>30)
[2023-03-17 13:24] LABS: PTHI 75 pg/mL (16-77)
[2023-03-19 23:19] LABS: Zinc 75 mcg/dL (60-130)
[2023-03-21 01:14] LABS: Vitamin A 28 mcg/dL (38-98)
[2023-03-22 14:23] LABS: Vitamin B1 11 nmol/L (8-30)
== END 2023-03-16 15:03 | disposition home or self-care (01) ==
LOC: HO.HMGCLDS 15:02
PROVIDERS: PCP Internal Medicine; Visit Provider Physician Assistant Surgical
DX: E66.9 Obesity, unspecified (principal); Z72.4 Inappropriate diet and eating habits
CPT/HCPCS: 36415; 82306; 82607; 82728; 82746; 83540; 83970; 84425; 84590; 84630; 85025; 86140

== ENCOUNTER 2023-03-19 14:33 | Emergency (ER) | payer OTHER, SELFPAY ==
--- NOTE | ~2023-03-19 | CT_ITS ---
EXAMINATION: CT ABDOMEN AND PELVIS WITH CONTRAST CLINICAL INFORMATION: RLQ pain COMPARISON: None. TECHNIQUE: Multidetector volumetric imaging was performed from the superior aspect of the liver through the pubic symphysis following administration of 85 mL Omnipaque 300 intravenous contrast. Sagittal and coronal reformatted images were obtained on the technologist workstation.. This CT examination was performed using dose optimization techniques as appropriate, variously including the following: *Automated exposure control *Adjustment of mA and/or kV according to patient size (this includes techniques or standardized protocols for targeted exams where dose is matched to indication/reason for exam; i.e. extremities or head) *Use of iterative reconstruction technique DLP: 570 mGy-cm FINDINGS: LUNG BASES: The visualized lung bases are unremarkable. LIVER, GALLBLADDER, AND BILIARY TREE: The liver is normal in size, shape, and attenuation. No focal hepatic lesion or biliary ductal dilatation is present. The gallbladder is unremarkable with no evidence of radiopaque gallstones, gallbladder wall thickening, or obvious pericholecystic inflammatory changes. PANCREAS: Unremarkable. SPLEEN: Unremarkable. ADRENAL GLANDS: Unremarkable. KIDNEYS AND URETERS: The kidneys are normal in size, shape, and attenuation. No hydronephrosis, hydroureter, or calculi seen. No perinephric stranding. BLADDER: Unremarkable. GASTROINTESTINAL TRACT: Colon is redundant. A few scattered colonic diverticula are seen but I do not appreciate any colonic wall thickening or pericolonic inflammatory change within the redundant colon. Cecum in the right upper quadrant and the appendix is not well-defined. Small bowel is decompressed and grossly unremarkable. Lap band in the left upper quadrant ABDOMINAL WALL: Lap band port in the right midabdomen. No surrounding inflammatory changes or fluid LYMPHOVASCULAR STRUCTURES: No lymphadenopathy. The aorta is unremarkable. Retroaortic left renal vein with left retroperitoneal varicosities from a spontaneous mesocaval shunt extends from the inferior mesenteric vein to the retroaortic left renal vein PELVIC VISCERA: Surgically absent. Small amount of air within the vaginal cavity of uncertain significance OSSEOUS STRUCTURES: Degenerative changes in the lower lumbar spine with degenerative changes in both hips CT/CT abdomen pelvis w IV con IMPRESSION: Chronic appearing and postoperative changes as described. I do not appreciate any acute intra-abdominal process.
[2023-03-19 14:36] VITALS: BP 149/78; PULSE 75; RESP 18; TEMP 37.1; O2SAT 99; BMI 29.7
--- NOTE | 2023-03-19 14:38 | ED_ITS ---
HPI - General Adult General Chief complaint: Abdominal Pain <Berry Chicas - Last Filed: 03/19/23 14:38> Stated complaint: Lower Abd Pain <Berry Chicas - Last Filed: 03/19/23 14:38> Time Seen by Provider: 03/19/23 20:55 <Berry Chicas - Last Filed: 03/19/23 14:38> Source: patient <Elia Hardy MD - Last Filed: 03/19/23 21:12> Mode of arrival: ambulatory <Elia Hardy MD - Last Filed: 03/19/23 21:12> Limitations: no limitations <Elia Hardy MD - Last Filed: 03/19/23 21:12> History of Present Illness HPI narrative: 57-year-old female with history of diabetes, hypertension, hypercholesterolemia presents with right lower quadrant abdominal pain. Sym ptoms started today. Symptoms are described as severe. Pain is 8/10. The pain is described as sharp in nature. Pain does not migrate. There is no clear relieving or exacerbating features. She denies any nausea, vomiting, diarrhea, constipation. She denies any urinary frequency, urgency, dysuria or hematuria. She has never had pain like this before she has a history of a hysterectomy but no additional intra-abdominal surgeries. There is no prior treatment <Elia Hardy MD - Last Filed: 03/19/23 21:12> Related Data Home medications: Home Medications Medication Instructions Recorded Confirmed cholecalciferol (vitamin D3) 25 25 mcg PO DAILY 11/08/20 03/01/23 mcg (1,000 unit) capsule losartan 50 mg tablet 50 mg PO DAILY 11/08/20 03/01/23 lovastatin 20 mg tablet 20 mg PO DAILY 11/08/20 03/01/23 blood sugar diagnostic #10 ea 04/07/21 03/01/23 blood-glucose meter #1 ea 04/07/21 03/01/23 lancets 33 gauge #100 ea 04/07/21 03/01/23 levothyroxine 150 mcg capsule 125 mcg PO DAILY 02/01/23 03/01/23 metformin 1,000 mg tablet 500 mg PO ONCE 02/01/23 03/01/23 semaglutide 1 mg/dose (2 mg/1.5 1 mg subcut QWEEK 02/01/23 03/01/23 mL) subcutaneous pen injector (Ozempic) <Berry GrayGerg - Last Filed: 03/19/23 14:38> Allergies/adverse reactions: Allergies Allergy/AdvReac Type Severity Reaction Status Date / Time No Known Allergies Allergy Verified 03/19/23 14:02 [No Known Allergies*] <Berry CastellanoGreg - Last Filed: 03/19/23 14:38> [facility] Past Medical History Medical History: Medical History Diabetes Fatty liver High cholesterol History of COVID-19 HTN (hypertension) Hypothyroid IBS (irritable bowel syndrome) Neurofibroma of multiple sites PONV (postoperative nausea and vomiting) <Berry Velay - Last Filed: 03/19/23 14:38> Surgical History: Surgical History H/O knee surgery History of colonoscopy History of hysterectomy <Berry Velay - Last Filed: 03/19/23 14:38> Family History Family History: Family History Father Hx of type 2 diabetes mellitus History of high cholesterol Family history of high blood pressure Mother Hx of type 2 diabetes mellitus Family history of high blood pressure Brother High cholesterol Hypertension Brother High cholesterol Hypertension Brother Hypertension High cholesterol Sister Hypertension High cholesterol Daughter No problems noted. Daughter No problems noted. 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 <Berry Velay Last Filed: 03/19/23 14:38> Physical Exam ED Vital Signs: Vital Signs - 24 hr 03/19/23 14:36 03/19/23 18:55 Temperature 98.7 F 97.8 F Pulse Rate 75 68 Respiratory Rate 18 16 Blood Pressure 149/78 H 151/85 H Pulse Oximetry 99 100 Oxygen Delivery Method Room Air Room Air BMI result Body Mass Index 29.7 <Berry Chicas - Last Filed: 03/19/23 14:38> Vital Signs - 24 hr 03/19/23 14:36 03/19/23 18:55 Temperature 98.7 F 97.8 F Pulse Rate 75 68 Respiratory Rate 18 16 Blood Pressure 149/78 H 151/85 H Pulse Oximetry 99 100 Oxygen Delivery Method Room Air Room Air BMI result Body Mass Index 29.7 <Elia Hardy MD - Last Filed: 03/19/23 21:12> GEN: Well developed, no acute distress, alert, oriented HEENT: Normocephalic, atraumatic, normal external ears, nose appears normal, no oropharyngeal edema or exudates Eyes: Normal to appearance Neck: Supple, no lymphadenopathy Respiratory: Talks in complete sentences, no respiratory distress, clear to auscultation bilaterally Cardiovascular: Regular rate and rhythm, no murmurs rubs or gallops Abdomen: Soft, right lower quadrant abdominal tenderness, nondistended, no guarding, no rebound Back: No CVA tenderness Extremities: No clubbing cyanosis or edema Neurologic: No focal neurologic deficits, cranial nerves 2-12 intact, strength is 5/5 bilaterally Skin: No rash <Elia Hardy MD - Last Filed: 03/19/23 21:12> Course Course Course Narrative: RME- 57-year-old female presents for evaluation of right lower abdominal pain that started today. Denies associated symptoms including fevers, nausea vomiting, symptoms. Patient was sent from urgent care to rule out acute appendicitis <Berry Chicas - Last Filed: 03/19/23 14:38> Reevaluation(s) Reevaluation #1: The workup is complete at this time. Laboratory analysis, urinalysis, CT scan did not reveal any evidence of the etiology of her symptoms. This was discussed with the patient. <Elia Hardy MD - Last Filed: 03/19/23 21:12> Time: 21:01 <Elia Hardy MD - Last Filed: 03/19/23 21:12> Medications Administered Discontinued Medications Generic Name Dose Route Start Last Admin Trade Name Freq PRN Reason Stop Dose Admin Iohexol 100 ml 03/19/23 19:38 03/19/23 19:39 Iohexol 350 Mg/Ml 100 Ml Infus..Btl IV 03/19/23 19:39 85 ml ONCE ONE Administration <Berry CastellanoGreg - Last Filed: 03/19/23 14:38> Medications Administered Discontinued Medications Generic Name Dose Route Start Last Admin Trade Name Freq PRN Reason Stop Dose Admin Iohexol 100 ml 03/19/23 19:38 03/19/23 19:39 Iohexol 350 Mg/Ml 100 Ml Infus..Btl IV 03/19/23 19:39 85 ml ONCE ONE Administration <Elia Hardy MD - Last Filed: 03/19/23 21:12> Medical Decision Making Medical Decision Making [facility] Narrative: 57-year-old female presents with abdominal pain. The abdominal pain is in the right lower quadrant. Examination revealed tenderness but no rebound or guarding. There is no CVA tenderness. She has no urinary complaints. No gas troenteritis type symptoms. Her only complaint is pain. Patient will have laboratory analysis, CT scan. Will discuss symptomatic treatment with patient. Patient will frequent re-evaluations the differential diagnosis is broad. Possible diagnosis could include appendicitis, epiploic appendagitis, mesenteric adenitis, colitis, diverticulitis, IBD, IBS cholecystitis GERD, gastritis, dysmotility. There are no red flag symptoms or findings on examination. Doubt dissection, ruptured AAA, mesenteric ischemia. <Elia Hardy MD - Last Filed: 03/19/23 21:12> Differential Diagnosis Differential Diagnoses: The differential diagnosis associated with the presentation includes (pendicitis, epiploic appendagitis, mesenteric adenitis, colitis, diverticulitis, IBD, IBS cholecystitis GERD, gastritis, dysmotility) <Elia Hardy MD - Last Filed: 03/19/23 21:12> Admission/Observation Consideration of admission/observation: Escalation of care including admission/observation considered <Elia Hardy MD - Last Filed: 03/19/23 21:12> Lab Data [facility] Lab Attestation statement: I reviewed the patient's lab results. <Elia Hardy MD - Last Filed: 03/19/23 21:12> Result Diagrams: 03/19/23 14:50 03/19/23 14:50 <Berry Chicas - Last Filed: 03/19/23 14:38> Labs: Lab Results 03/19/23 03/19/23 03/19/23 Range/Units 14:50 14:50 16:36 WBC 8.5 (4.8-10.8) X10*3/uL RBC 4.10 L (4.20-5.50) X10*6/uL Hgb 12.5 (12.0-16.0) g/dl Hct 38.3 (37.0-47.0) % MCV 93.4 (80.0-98.0) fL MCH 30.5 (27.0-33.0) pg MCHC 32.6 (31.0-35.0) g/dl RDW 13.1 (11.0-16.0) % Plt Count 323 (160-400) X10*3/uL MPV 9.5 (9.4-12.3) fL Immature Gran % (Auto) 0.2 (0.0-0.4) % Neut % (Auto) 51.2 (45-73) % Lymph % (Auto) 34.4 (20-40) % Sargent % (Auto) 12.1 H (2-11) % Eos % (Auto) 1.4 (0-4) % Baso % (Auto) 0.7 (0-2) % Lymph # (Auto) 2.9 (1.2-4.9) X10*3/uL Sargent # (Auto) 1.0 (0.1-1.2) X10*3/uL Eos # (Auto) 0.1 (0.0-0.4) X10*3/uL Baso # (Auto) 0.1 (0.0-0.2) X10*3/uL Abs Immat Gran (auto) 0.02 (0.00-0.03) X10*3/uL Absolute Neuts (auto) 4.3 (2.0-8.3) x10*3/uL Absolute Nucleated RBC 0.000 (0.0-0.012) X10*3/uL Nucleated RBC % (auto) 0.0 (0.0-0.2) /100WBC Sodium 141 (135-145) mmol/L Potassium 4.1 (3.3-5.1) mmol/L Chloride 108 (96-108) mmol/L Carbon Dioxide 28 (22-29) mmol/L Anion Gap 9 L (12-20) BUN 10 (9-16) mg/dL Creatinine 0.73 (0.5-1.4) mg/dL Estim Creat Clear Calc 97.0 Estimated GFR > 60 Random Glucose 105 (60-115) mg/dL Calcium 9.4 (8.4-10.2) mg/dL Total Bilirubin 0.6 (0.0-1.0) mg/dL AST 11 (5-31) U/L ALT 12 (0-31) U/L Alkaline Phosphatase 99 (39-117) U/L Total Protein 6.1 L (6.5-8.0) g/dL Albumin 3.9 (3.5-5.0) g/dL Lipase 31 (8-78) U/L Urine Color Yellow Urine Appearance Clear Urine pH 6.0 (5.0-9.0) Ur Specific [place] <= 1.005 (1.005-1.025) Urine Protein Negative (Neg-Trace) mg/dL Urine Glucose (UA) Negative (Negative) mg/dL Urine Ketones Negative (Negative) mg/dL Urine Blood Negative (Negative) Urine Nitrite Negative (Negative) Ur Leukocyte Esterase Negative (Negative) Urine RBC 0-2 (0-2) /HPF Urine WBC 0-5 (0-5) /HPF Ur Squamous Epith Cells 0-2 (0-2) /HPF Urine Bacteria 1+ (None Seen) Hyaline Casts 0-2 (0-2) /LPF <Berry Chicas - Last Filed: 03/19/23 14:38> Lab Results 03/19/23 03/19/23 03/19/23 Range/Units 14:50 14:50 16:36 WBC 8.5 (4.8-10.8) X10*3/uL RBC 4.10 L (4.20-5.50) X10*6/uL Hgb 12.5 (12.0-16.0) g/dl Hct 38.3 (37.0-47.0) % MCV 93.4 (80.0-98.0) fL MCH 30.5 (27.0-33.0) pg MCHC 32.6 (31.0-35.0) g/dl RDW 13.1 (11.0-16.0) % Plt Count 323 (160-400) X10*3/uL MPV 9.5 (9.4-12.3) fL Immature Gran % (Auto) 0.2 (0.0-0.4) % Neut % (Auto) 51.2 (45-73) % Lymph % (Auto) 34.4 (20-40) % Sargent % (Auto) 12.1 H (2-11) % Eos % (Auto) 1.4 (0-4) % Baso % (Auto) 0.7 (0-2) % Lymph # (Auto) 2.9 (1.2-4.9) X10*3/uL Sargent # (Auto) 1.0 (0.1-1.2) X10*3/uL Eos # (Auto) 0.1 (0.0-0.4) X10*3/uL Baso # (Auto) 0.1 (0.0-0.2) X10*3/uL Abs Immat Gran (auto) 0.02 (0.00-0.03) X10*3/uL Absolute Neuts (auto) 4.3 (2.0-8.3) x10*3/uL Absolute Nucleated RBC 0.000 (0.0-0.012) X10*3/uL Nucleated RBC % (auto) 0.0 (0.0-0.2) /100WBC Sodium 141 (135-145) mmol/L Potassium 4.1 (3.3-5.1) mmol/L Chloride 108 (96-108) mmol/L Carbon Dioxide 28 (22-29) mmol/L Anion Gap 9 L (12-20) BUN 10 (9-16) mg/dL Creatinine 0.73 (0.5-1.4) mg/dL Estim Creat Clear Calc 97.0 Estimated GFR > 60 Random Glucose 105 (60-115) mg/dL Calcium 9.4 (8.4-10.2) mg/dL Total Bilirubin 0.6 (0.0-1.0) mg/dL AST 11 (5-31) U/L ALT 12 (0-31) U/L Alkaline Phosphatase 99 (39-117) U/L Total Protein 6.1 L (6.5-8.0) g/dL Albumin 3.9 (3.5-5.0) g/dL Lipase 31 (8-78) U/L Urine Color Yellow Urine Appearance Clear Urine pH 6.0 (5.0-9.0) Ur Specific [place] <= 1.005 (1.005-1.025) Urine Protein Negative (Neg-Trace) mg/dL Urine Glucose (UA) Negative (Negative) mg/dL Urine Ketones Negative (Negative) mg/dL Urine Blood Negative (Negative) Urine Nitrite Negative (Negative) Ur Leukocyte Esterase Negative (Negative) Urine RBC 0-2 (0-2) /HPF Urine WBC 0-5 (0-5) /HPF Ur Squamous Epith Cells 0-2 (0-2) /HPF Urine Bacteria 1+ (None Seen) Hyaline Casts 0-2 (0-2) /LPF <Elia Hardy MD - Last Filed: 03/19/23 21:12> Independent Interpretation I performed an independent interpretation of an: CT Scan (Abd/Pelvis NAD) <Elia Hardy MD - Last Filed: 03/19/23 21:12> Radiology Impression Discussion of test interpretation with radiology: I have reviewed the radiologist's reading. ( CT/CT abdomen pelvis w IV con IMPRESSION: Chronic appearing and postoperative changes as described. I do not appreciate any acute intra-abdominal process. Dictated By:Cristiano Tsai MDSigned By:<Electronically signed by Cristiano Tsai MD in [place]>03/19/232021) <Elia Hardy MD - Last Filed: 03/19/23 21:12> Tests considered The following testing was considered but not selected: Ultrasound <Elia Hardy MD - Last Filed: 03/19/23 21:12> Prescription Management I considered prescription management with: Pain Medication and Antibiotic <Elia Hardy MD - Last Filed: 03/19/23 21:12> Discharge Plan Discharge Clinical Impression: Abdominal pain <Berry Chicas - Last Filed: 03/19/23 14:38> Patient Disposition: Home, Self-Care <Berry Chicas - Last Filed: 03/19/23 14:38> Instructions: Abdominal Pain (ED) <Berry Juan Francisco - Last Filed: 03/19/23 14:38> Additional Instructions: You were seen today for acute abdominal pain. The pain was relocated the right lower quadrant. He had routine laboratory analysis, imaging studies and urinalysis. There is no definite indication for the cause of your symptoms. Should she develop increasing pain, intolerable pain, intractable nausea, vo miting or any other concerning symptoms, please do not hesitate to return to emergency department for re-evaluation. <Berry Juan Francisco - Last Filed: 03/19/23 14:38> Prescriptions: No Action losartan 50 mg tablet 50 mg PO DAILY lovastatin 20 mg tablet 20 mg PO DAILY cholecalciferol (vitamin D3) 25 mcg (1,000 unit) capsule 25 mcg PO DAILY metformin 1,000 mg tablet 500 mg PO ONCE levothyroxine 150 mcg capsule 125 mcg PO DAILY (DME) lancets 33 gauge misc See Rx Instructions topical .MEDSUPPLY Qty: 100 Rx Instructions: As directed (DME) OneTouch Verio test strips Strip See Rx Instructions .ROUTE .MEDSUPPLY Qty: 10 Rx Instructions: As directed (DME) blood-glucose meter Misc See Rx Instructions .ROUTE DIRECTED Qty: 1 Rx Instructions: As directed Ozempic 1 mg/dose (2 mg/1.5 mL) pen injector 1 mg subcut QWEEK <Berry Chicas - Last Filed: 03/19/23 14:38> Referrals: Rc Harrell MD [Primary Care Provider] - 5 days <Berry Chicas - Last Filed: 03/19/23 14:38>
[2023-03-19 14:54] LABS: MANUAL DIFF FLAG NO
[2023-03-19 14:57] LABS: Basophils Absolute Auto 0.1 X10*3/uL (0.0-0.2); Basophils Percent Auto 0.7 % (0-2); Eosinophils Absolute Auto 0.1 X10*3/uL (0.0-0.4); Eosinophils Percent Auto 1.4 % (0-4); Hematocrit 38.3 % (37.0-47.0); Hemoglobin 12.5 g/dl (12.0-16.0); Imm Gran Abs Auto 0.02 X10*3/uL (0.00-0.03); Imm Gran Pct Auto 0.2 % (0.0-0.4); Lymphocytes Absolute Auto 2.9 X10*3/uL (1.2-4.9); Lymphocytes Percent Auto 34.4 % (20-40); Mean Corpuscular HGB Conc 32.6 g/dl (31.0-35.0); Mean Corpuscular Hemoglobin 30.5 pg (27.0-33.0); Mean Corpuscular Volume 93.4 fL (80.0-98.0); Mean Platelet Volume 9.5 fL (9.4-12.3); Monocytes Percent Auto 12.1 % (2-11); Neutrophils Absolute Auto 4.3 x10*3/uL (2.0-8.3); Neutrophils Percent Auto 51.2 % (45-73); Platelet Count 323 X10*3/uL (160-400); Red Cell Distribution Width 13.1 % (11.0-16.0); White Blood Count 8.5 X10*3/uL (4.8-10.8)
[2023-03-19 15:15] LABS: Alanine Aminotransferase 12 U/L (0-31); Albumin Level 3.9 g/dL (3.5-5.0); Alkaline Phosphatase 99 U/L (39-117); Anion Gap 9 (12-20); Aspartate Amino Transferase 11 U/L (5-31); Bilirubin Total 0.6 mg/dL (0.0-1.0); Blood Urea Nitrogen 10 mg/dL (9-16); Calcium 9.4 mg/dL (8.4-10.2); Carbon Dioxide 28 mmol/L (22-29); Chloride 108 mmol/L (96-108); Estimated Glomerular Filt Rate > 60; Glucose Random 105 mg/dL (60-115); Lipase 31 U/L (8-78); Potassium 4.1 mmol/L (3.3-5.1); Sodium 141 mmol/L (135-145); Total Protein 6.1 g/dL (6.5-8.0)
--- NOTE | 2023-03-19 16:37 | MHC.EDTECH ---
pt urine sample collected and sent to lab .
[2023-03-19 16:51] LABS: Appearance Urine Clear; Color Urine Yellow; Glucose Urine UA Negative (Negative); Leukocyte Esterase Urine Negative (Negative); Nitrite Urine Negative (Negative); Specific Gravity - Urine <= 1.005 (1.005-1.025); Urine Blood Negative (Negative); Urine Ketones Negative (Negative); Urine Protein Negative (Neg-Trace)
[2023-03-19 16:54] LABS: Bacteria Urine 1+ (None Seen); Hyaline Casts Urine 0-2 /LPF (0-2); RBC Urine 0-2 /HPF (0-2); Squamous Epithelial Cell Urine 0-2 /HPF (0-2); WBC Urine 0-5 /HPF (0-5)
[2023-03-19 18:55] VITALS: BP 151/85; PULSE 68; RESP 16; TEMP 36.6; O2SAT 100
[2023-03-19] MEDS: iohexoL 350 MG/ML 100 ML INFUS..BTL IV (19:39)
[2023-03-19 21:16] VITALS: BP 139/86; PULSE 72; RESP 16; TEMP 36.6; O2SAT 97
[2023-03-19] MEDS: Acetaminophen 325 MG TABLET 975 MG PO (21:19)
[2023-03-19] MEDS: Ibuprofen 600 MG TABLET PO (21:19)
== END 2023-03-19 21:24 | disposition home or self-care (01) ==
PROVIDERS: Physician Assistant; Emergency Provider Emergency Medicine; PCP Internal Medicine
DX: R10.31 Right lower quadrant pain (principal); E11.9 Type 2 diabetes mellitus without complications; I10 Essential (primary) hypertension; Z79.899 Other long term (current) drug therapy; Z87.891 Personal history of nicotine dependence
CPT/HCPCS: 36415; 74177; 80053; 81001; 83690; 85025; 99284; Q9967

== ENCOUNTER → 2023-03-29 14:17 | Outpatient (BNVA) | payer OTHER, SELFPAY | PROVIDERS: PCP Internal Medicine; Visit Provider Dietitian, Registered | DX: E66.9 Obesity, unspecified (principal); Z68.29 Body mass index [BMI] 29.0-29.9, adult; E11.9 Type 2 diabetes mellitus without complications; Z71.3 Dietary counseling and surveillance | CPT/HCPCS: 97802 ==

== ENCOUNTER → 2023-04-01 08:31 | Outpatient (BNVA) | payer OTHER, SELFPAY | PROVIDERS: PCP Internal Medicine; Visit Provider Nurse Practitioner Family ==

== ENCOUNTER 2023-04-06 14:15 | Outpatient (REF) | payer OTHER, SELFPAY ==
--- NOTE | ~2023-04-06 | US_ITS ---
EXAMINATION: US PELVIS CLINICAL INFORMATION: Right lower quadrant pain. Question cyst or torsion. COMPARISON: Previous CT of the abdomen and pelvis February 2023 and pelvic ultrasound August 2007 TECHNIQUE: Ultrasound of the pelvis is performed using both transabdominal and transvaginal transducers along with Doppler. Transvaginal imaging is performed due to inadequate visualization transabdominally. FINDINGS: The uterus and left ovary have been removed. The right ovary measures 2.7 x 1.8 2.1 cm. There is a 1.3 x 1.1 x 1 cm simple cyst. Flow is documented to the right ovary and there is no evidence of torsion seen at this time. There is no fluid in the pelvis. US/US pelvic and transvaginal IMPRESSION: 1.3 x 1.1 x 1 cm simple right ovarian cyst.
== END 2023-04-06 14:16 | disposition home or self-care (01) ==
LOC: HO.HMGCX 14:15
PROVIDERS: PCP Internal Medicine; Visit Provider Nurse Practitioner
DX: R10.31 Right lower quadrant pain (principal)
CPT/HCPCS: 76830; 76856

== ENCOUNTER → 2023-04-29 15:28 | Outpatient (BNVA) | payer OTHER, SELFPAY | PROVIDERS: PCP Internal Medicine; Visit Provider Physician Assistant Surgical ==

== ENCOUNTER → 2023-05-04 13:06 | Outpatient (BNVA) | payer OTHER, SELFPAY | PROVIDERS: PCP Internal Medicine; Visit Provider Obstetrics & Gynecology ==

== ENCOUNTER 2023-05-05 14:38 | Outpatient (REF) | payer OTHER, SELFPAY ==
[2023-05-07 12:08] LABS: CA-125 5 U/mL (<35)
== END 2023-05-05 14:39 | disposition home or self-care (01) ==
LOC: HO.HMGCLDS 14:38
PROVIDERS: PCP Internal Medicine; Visit Provider Obstetrics & Gynecology
DX: N83.209 Unspecified ovarian cyst, unspecified side (principal)
CPT/HCPCS: 36415; 86304

== ENCOUNTER → 2023-05-25 13:48 | Outpatient (BNVA) | payer OTHER, SELFPAY | PROVIDERS: PCP Internal Medicine; Visit Provider Surgery Vascular Surgery ==

== ENCOUNTER 2023-06-15 14:50 | Outpatient (AMB) | payer OTHER, SELFPAY ==
--- NOTE | 2023-06-15 15:02 | A.OFFVIS_ITS ---
Intake VS Expanded 06/15/23 15:03 Height 5 ft 7 in Weight 196 lb 12.8 oz BMI 30.8 BP 129/99 H Blood Pressure Location Lt brachial Blood Pressure Position Sitting Pulse 71 Pulse Source Pulse Oximeter Temp 98.5 F Temperature Source Temporal Artery Scan Pulse Oximetry 98 Oxygen Delivery Method Room Air Body Fat 68.4 Body Fat Percentage 34.8 Free Fat Mass 128.4 Muscle Mass 122.0 Visceral Mass 9.0 Water Mass 91.0 BMR 1,730 Comment 2nd b/p- 165/79 Intake Visit Reasons: (OV) F/U MWL Allergies No Known Allergies [No Known Allergies*] Allergy (Verified 06/15/23 15:06) Medication List - Last Reconciled 06/15/23 by JESSE Fried blood sugar diagnostic As directed blood-glucose meter As directed cholecalciferol (vitamin D3) 25 mcg PO DAILY flash glucose sensor (FreeStyle Jaspal 2 Sensor kit) As directed lancets As directed levothyroxine 125 mcg PO DAILY losartan 50 mg PO DAILY lovastatin 20 mg PO DAILY metformin 500 mg PO ONCE semaglutide (Ozempic) 1 mg subcut QWEEK sennosides (Natural Senna Laxative) 17.2 mg (2 x 8.6 mg) PO BEDTIME vitamin A palmitate 10,000 units PO DAILY HPI HPI Comments History of Present Illness Details Pt presents in followup for MWL. Visit #4. Starting weight: 193 Weight at last visit: 189 Today's weight: 196.8 Current meal plan: 5-6am Core power fairlife shake 12pm yogurt chobani less sugar 3pm fit crunch protein bar 6pm dinner - salad and chicken has another bar after dinner reports I cheated a lot over the past month. Was on vacation. On Ozempic, but feels that her appetite has come back. Considering asking PCP to increase dose but had nausea previously when she was started on a higher dose. Last HgbA1C was 5.9, diabetic specialist is considering stopping metformin if she continues to have good blood sugar control. She does have a lap band in place, which is partially but not completely filled. Exercise: had a fall and hurt both knees having abdominal pain which limits her ability to exercise was walking daily [facility] Medical History Diabetes Fatty liver High cholesterol History of COVID-19 HTN (hypertension) Hypothyroid IBS (irritable bowel syndrome) Neurofibroma of multiple sites PONV (postoperative nausea and vomiting) Surgical History H/O knee surgery History of colonoscopy History of hysterectomy Family History Father Hx of type 2 diabetes mellitus History of high cholesterol Family history of high blood pressure Mother Hx of type 2 diabetes mellitus Family history of high blood pressure Brother High cholesterol Hypertension Brother High cholesterol Hypertension Brother Hypertension High cholesterol Sister Hypertension High cholesterol Daughter No problems noted. Daughter No problems noted. 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 She is very interested in gastric balloon. We discussed that she may not be a candidate due to her previous lap band in place but per our protocol it is not an absolute contraindication. She is also amenable to lap band removal if required prior to balloon placement. Will arrange appt with Dr. Scott to discuss pt's options. Patient is obese and is not considered stable at this time. I spent a total of 30 minutes reviewing/updating records, examining the patient and counseling the patient on weight management as detailed above. Coding Level of Care Code Est Pt Level 4 (08302) Diagnoses Hx of laparoscopic gastric banding Z98.84 Obesity E66.9
[2023-06-15 15:03] VITALS: BP 129/99; PULSE 71; TEMP 36.9; O2SAT 98; BMI 30.8
== END 2023-06-15 15:59 | disposition home or self-care (01) ==
PROVIDERS: PCP Internal Medicine; Visit Provider Physician Assistant Surgical
DX: E66.9 Obesity, unspecified (principal); Z68.30 Body mass index [BMI] 30.0-30.9, adult; Z98.84 Bariatric surgery status
CPT/HCPCS: 99214

== ENCOUNTER → 2023-06-15 14:50 | Outpatient (BNVA) | payer OTHER, SELFPAY | PROVIDERS: PCP Internal Medicine; Visit Provider Physician Assistant Surgical ==

== ENCOUNTER 2023-07-29 12:23 | Outpatient (REF) | payer OTHER, SELFPAY ==
--- NOTE | ~2023-07-29 | MR_ITS ---
EXAMINATION: MR BRAIN WITHOUT AND WITH CONTRAST CLINICAL INFORMATION: Neurofibromatosis. Assess for intracranial gliomas. COMPARISON: There are no prior studies available for comparison at time of dictation. TECHNIQUE: Multiplanar, multisequence MRI of the brain was obtained before and after the intravenous administration of 9 mL Gadavist. FINDINGS: No diffusion abnormalities are identified to suggest an acute or subacute infarct. No mass effect or midline shift is seen. The ventricles and sulci are slightly commensurately prominent. No subependymal masses or nodules are demonstrated. The CP angles appear normal bilaterally. There are a few scattered foci of increased T2 and FLAIR signal in the periventricular and subcortical white matter, which are nonspecific. No extra-axial fluid collections are seen. The brainstem appears normal. On postcontrast imaging, there is no abnormal parenchymal or leptomeningeal enhancement. No pathologic magnetic susceptibility artifact is identified on the gradient refocused acquisition. The cerebellar tonsils have normal contour and position, and the craniocervical junction appears normal. Marrow signal and midline structures are normal; there is hyperostosis frontalis interna. There are multiple cutaneous nodules around the calvarium and the upper neck, the largest in the left occipital region which measures 1.5 x 1.1 cm, consistent with neurofibromas. The major intracranial flow-voids at the level of the [place] are preserved. The dural venous sinus flow-voids are maintained. The mastoid air cells are well-aerated. There is mild opacification in the ethmoid sinuses bilaterally. MR/MR head/brain wo/w con IMPRESSION: 1. There are no acute bleeds or infarcts. There are no intracranial masses or areas of abnormal enhancement. 2. There are multiple cutaneous nodules around the calvarium and the upper neck, consistent with neurofibromas.
[2023-08-03] MEDS: gadobutroL 10 ML VIAL IVPUSH (13:57)
== END 2023-07-29 12:24 | disposition home or self-care (01) ==
LOC: HO.MRI 12:23
PROVIDERS: PCP Internal Medicine; Visit Provider Internal Medicine
DX: Q85.01 Neurofibromatosis, type 1 (principal)
CPT/HCPCS: 70553; A9585

== ENCOUNTER 2023-08-10 09:32 | Outpatient (AMB) | payer OTHER, SELFPAY ==
--- NOTE | 2023-08-10 09:54 | MHC.OFFVIS ---
Intake Vital Signs 08/10/23 10:04 Height 5 ft 7 in Weight 205 lb 6 oz BMI 32.2 BP 162/84 H Blood Pressure Location Lt brachial Position Sitting Pulse 66 Intake Visit Reasons: Scalp Cyst Intake Note: Patient is seen in office for evaluation and treatment of a cyst scalp. Patient c/o: admits to neurofibroma of the left side of the scalp, onset 30 yrs, had MRI done recently, admits to pain on/off to the touch, denies discharge, redness, increase/decrease no other concerns, had other removed in arm Electrical Electronics Technician Required: No Accompanied by: Self / Same As Patient Allergies No Known Allergies [No Known Allergies*] Allergy (Verified 08/10/23 10:01) Medication List - Last Reconciled 08/10/23 by Vahid Plasencia MD atorvastatin 40 mg PO DAILY blood sugar diagnostic As directed blood-glucose meter As directed cholecalciferol (vitamin D3) 25 mcg PO DAILY flash glucose sensor (FreeStyle Jaspal 2 Sensor kit) As directed lancets As directed levothyroxine 112 mcg PO DAILY losartan 50 mg PO DAILY lovastatin 20 mg PO DAILY semaglutide (Ozempic) mg subcut sennosides (Natural Senna Laxative) 17.2 mg (2 x 8.6 mg) PO BEDTIME vitamin A palmitate 10,000 units PO DAILY HPI HPI Comments History of Present Illness Details 57-year-old female patient presenting for evaluation of a palpable mass located in the posterior left scalp. The lesion has been present for many years and has gradually increased in size. She has some discomfort when the lesion is palpated. She previously underwent an attempted excision but this was aborted when the lesion was found to be too deep to be removed. Since this time the lesion has increased in size. A recent MRI of the brain does confirm what appears to be a subcutaneous neurofibroma the posterior left scalp. She is requesting excision of this lesion. [facility] Medical History Fatty liver IBS (irritable bowel syndrome) History of COVID-19 Neurofibroma of multiple sites Hypothyroid PONV (postoperative nausea and vomiting) Diabetes High cholesterol HTN (hypertension) Surgical History S/P right knee arthroscopy (1994) Hx of laparoscopic gastric banding (04/23/21) History of hysterectomy (11/29/06) History of colonoscopy (02/04/21) Family History Father Hx of type 2 diabetes mellitus History of high cholesterol Family history of high blood pressure Mother Hx of type 2 diabetes mellitus Family history of high blood pressure Brother High cholesterol Hypertension Brother High cholesterol Hypertension Brother Hypertension High cholesterol Sister Hypertension High cholesterol Daughter No problems noted. Daughter No problems noted. 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 Female Reproductive History Menstrual Age of Menarche: 11 Review of Systems Const All systems reviewed & are unremarkable except as noted in HPI and below Denies chills, Denies fever(s), Denies headache(s), Denies poor appetite and Denies weakness ENT Denies headache(s) Card Denies chest pain, Denies irregular heart rhythm, Denies palpitations and Denies dyspnea Resp Denies cough, Denies excessive phlegm production and Denies dyspnea GI Denies abdominal pain, Denies bloating, Denies change in bowel habits, Denies constipation, Denies heartburn, Denies diarrhea, Denies nausea and Denies vomiting Denies urinary frequency Musc Denies back pain, Denies muscle weakness and Denies numbness Skin/Breast Denies changing lesions and Denies unusual bruising Neuro Denies headache(s), Denies numbness, Denies paresthesias and Denies weakness Psych Denies anxiety and Denies depression Endo Denies palpitations Bertram/Lymph Denies lymphadenopathy Physical Exam Const General: cooperative and no acute distress Nutritional Appearance: well nourished Orientation/consciousness: patient oriented x3 Limitations: no limitations HEENT Head: Yes normocephalic and Yes atraumatic Head images: 1. 2 cm soft tissue mass located in the posterior left scalp mobile within the subcutaneous tissue with no overlying skin change. Findings are consistent with a neurofibroma. 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 Patient previously underwent attempted excision which was aborted. She presents today to discuss an excision. On examination there is a 2 cm mass, mobile within the subcutaneous tissue in the posterior left scalp. Findings are consistent with a neurofibroma. I recommended an excision under anesthesia given her previous history. After discussion of the procedure risks and alternatives, she consents to excision of the left posterior scalp of neurofibroma. Coding Level of Care Code New Pt Level 4 (55260) Diagnoses Neurofibromatosis Q85.00
[2023-08-10 10:04] VITALS: BP 162/84; PULSE 66; BMI 32.2
== END 2023-08-10 10:10 | disposition home or self-care (01) ==
PROVIDERS: PCP Internal Medicine; Referring Provider Internal Medicine; Visit Provider Surgery
DX: Q85.01 Neurofibromatosis, type 1 (principal)
CPT/HCPCS: 99204

== ENCOUNTER → 2023-08-10 09:32 | Outpatient (BNVA) | payer OTHER, SELFPAY | PROVIDERS: PCP Internal Medicine; Referring Provider Internal Medicine; Visit Provider Surgery ==

== ENCOUNTER 2023-08-16 08:29 | Day surgery (SDC) | payer OTHER, SELFPAY ==
[2023-08-16] VITALS (7 sets, daily range): BP systolic 110–142; BP diastolic 58–72; PULSE 63–67; RESP 16–18; TEMP 36.2–36.4; O2SAT 94–99; BMI 32.1
[2023-08-16] MEDS: Lactated Ringers 1,000 ML 100 ML IVCONT (10:24)
--- NOTE | 2023-08-16 10:58 | HO.ANESPROP2 ---
[facility] Active Problems Active Problems: All Active Problems (Updated 05/26/23 @ 11:23 by Carrington Silva MD) Hx of laparoscopic gastric banding (Acute 04/23/21) Mesocaval shunt stenosis (Acute) Simple ovarian cyst (Acute) Right lower quadrant abdominal pain (Acute) Obesity (Acute) Fall (on)(from) sidewalk curb, initial encounter (Acute) Right calf pain (Acute) Posterior right knee pain (Acute) Colon cancer screening (Acute) Diabetes mellitus (Acute) Hypertension (Acute) Vitamin D deficiency (Acute) Neurofibromatosis (Acute) Abdominal pain (Acute) Diarrhea (Acute) IBS (irritable bowel syndrome) (Acute) Past Medical History Medical History Fatty liver IBS (irritable bowel syndrome) History of COVID-19 Neurofibroma of multiple sites Hypothyroid PONV (postoperative nausea and vomiting) Diabetes High cholesterol HTN (hypertension) Family History Family History Father Hx of type 2 diabetes mellitus History of high cholesterol Family history of high blood pressure Mother Hx of type 2 diabetes mellitus Family history of high blood pressure Brother High cholesterol Hypertension Brother High cholesterol Hypertension Brother Hypertension High cholesterol Sister Hypertension High cholesterol Daughter No problems noted. Daughter No problems noted. Paternal Grandmother Ovarian cancer Paternal Grandfather Colon cancer Family history of problems with anesthesia: No Surgical History Surgical History S/P right knee arthroscopy (1994) Hx of laparoscopic gastric banding (04/23/21) History of hysterectomy (11/29/06) History of colonoscopy (02/04/21) History of Problems with Anesthesia: No Social History Social History Household Members: Spouse and Children Are you a primary before and after school daycare worker to a significant other at home: No Do you presently have visiting nurse or other home services: No Alcohol intake: current Alcohol intake frequency: holidays/special occasions only Alcohol type: beer, wine, hard liquor and other Patient Tobacco Use Status: Former Tobacco user Years Smoked: 5 years Use of substances other than those prescribed or required for medical reasons: Yes Substance Use Type Other:: CBD gummies at bedtime Are you DNR?: No Advance Directives: No Advance Directives Information Provided: Yes Advance Directives on File: No 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 Allergies Allergy/AdvReac Type Severity Reaction Status Date / Time No Known Allergies Allergy Verified 08/10/23 10:01 [No Known Allergies*] Active Medications: Current Medications Lactated Ringer's (Lr) 1,000 mls @ 100 mls/hr IVCONT .Q10H NANCI Last Admin: 08/16/23 10:24 Dose: 100 mls/hr Home Medications Medication Instructions Recorded Confirmed Last Taken Type cholecalciferol (vitamin D3) 25 25 mcg PO DAILY 11/08/20 08/10/23 Unknown History mcg (1,000 unit) capsule losartan 50 mg tablet 50 mg PO DAILY 11/08/20 08/10/23 Unknown History lovastatin 20 mg tablet 20 mg PO DAILY 11/08/20 08/10/23 Unknown History blood sugar diagnostic #10 ea 04/07/21 08/10/23 Unknown History blood-glucose meter #1 ea 04/07/21 08/10/23 Unknown History lancets 33 gauge #100 ea 04/07/21 08/10/23 Unknown History flash glucose sensor (FreeStyle #1 ea 05/04/23 08/10/23 Unknown History Jaspal 2 Sensor kit) atorvastatin 40 mg tablet 40 mg PO DAILY 08/10/23 08/10/23 Unknown History levothyroxine 112 mcg tablet 112 mcg PO DAILY 08/10/23 08/10/23 Unknown History semaglutide 1 mg/dose (4 mg/3 mL) mg subcut 08/10/23 08/10/23 Unknown History subcutaneous pen injector (Ozempic) Exam Exam Date and Time: August 16, 2023 1058 Height,Weight and Vital Signs: Height 5 ft 7 in Weight 92.986 kg Last Vital Signs Temp 97.2 F 08/16/23 10:02 Pulse 65 08/16/23 10:02 Resp 16 08/16/23 10:02 BP 142/72 H 08/16/23 10:02 Pulse Ox 99 08/16/23 10:02 O2 Del Method Room Air 08/16/23 10:02 Airway Mallampati Class: II TM Dist: >3cm Neck ROM: Full Heart: rrr Lungs: cta Assessment and Plan Assessment Anesthesia Assessment: Anesthesia Plan Discussed and Chart Reviewed Final Anesthetic Review Family History of Problems with Anesthesia: No History of Problems with Anesthesia: No NPO: Yes ASA Class: II Final Preanesthetic Review: No Changes in Pt Med Stat, Meds/Allgs Chart Reviewed and Consent Obtained/Reviewed Patient Risk: Intermediate Procedure Risk: Intermediate Anesthetic Plan Anesthetic Plan: MAC: Disposition: Standard PACU
[2023-08-16 11:02] LABS: Glucose, Whole Blood 91 mg/dL (60-115)
--- NOTE | 2023-08-16 12:01 | W.PM.OPN ---
Operative Note Operative Note Date of Service: 08/16/23 Narrative: Preoperative diagnosis: Neurofibroma, posterior scalp left Postoperative diagnosis: Same Procedure: Excision of neurofibroma posterior scalp left Surgeon: Vahid Plasencia MD Infrastructure Tech: Maty Tran PA-C Anesthesia: Mac Indications for procedure: 57-year-old female patient with history of neurofibromas presenting with painful neurofibroma the posterior left scalp. On examination she is noted to have a 2 cm neurofibroma mobile within the subcutaneous tissue and tender to palpation. Operative findings: 2 cm mass posterior scalp either a neurofibroma or Pilar cyst Specimen: Neurofibroma posterior left scalp Estimated blood loss: 5 mL Complications: None Procedure details: Patient was brought to the OR and placed in a right lateral decubitus position. The patient was admitted light sedation, prepped and draped in a sterile fashion. A surgical time-out was called the consent confirmed. Patient received preoperative antibiotics and Venodyne boots were in place. Local anesthesia was then infiltrated over the palpable mass. Incision was then made to the scalp and carried out through subcutaneous tissue down to the lesion. Sharp dissection using Metzenbaum scissors was then used to dissect the lesion from the surrounding subcutaneous tissue. Hemostasis was assured at all times using electrocautery. The lesion was passed off the table and sent to pathology for further examination. After assuring adequate hemostasis the skin was closed using interrupted 3-0 Prolene sutures. Incision was then dressed with bacitracin ointment. The patient tolerated the procedure well. Sponge, instrument, needle counts reported as correct. Patient was transferred to PACU in stable condition.
== END 2023-08-16 13:10 | disposition home or self-care (01) ==
PROVIDERS: PCP Internal Medicine; Visit Provider Surgery
PROC: (CPT 21014; principal; 2023-08-16 10:50)
DX: Q85.00 Neurofibromatosis, unspecified (principal); I10 Essential (primary) hypertension; E11.9 Type 2 diabetes mellitus without complications; E78.00 Pure hypercholesterolemia, unspecified; K76.0 Fatty (change of) liver, not elsewhere classified; Z79.85 Long-term (current) use of injectable non-insulin antidiabetic drugs; Z79.899 Other long term (current) drug therapy; Z98.890 Other specified postprocedural states; Z87.891 Personal history of nicotine dependence
CPT/HCPCS: 21014; 82947; 88304; 88307; J0690; J2250; J2405; J3010

== ENCOUNTER → 2023-08-16 08:29 | Outpatient (BNV) | payer OTHER, SELFPAY | PROVIDERS: PCP Internal Medicine; Visit Provider Surgery | DX: Q85.01 Neurofibromatosis, type 1 (principal) | CPT/HCPCS: 21012 ==

== ENCOUNTER 2023-08-26 11:02 | Outpatient (AMB) | payer OTHER, SELFPAY ==
--- NOTE | 2023-08-26 11:05 | A.OFFVIS_ITS ---
Intake Vital Signs 3 08/26/23 11:16 Height 5 ft 7 in Weight 204 lb BMI 31.9 BP 169/79 H Blood Pressure Location Lt brachial Position Sitting Pulse 66 Intake Visit Reasons: S/P excision neurofibroma posterior Lt scalp Intake Note: Patient is seen in office for post op assessment post excision of neurofibroma posterior left scalp. Patient c/o: denies any concerns, stitches removed at visit Equity Research Analyst Required: No Accompanied by: Self / Same As Patient Allergies No Known Allergies [No Known Allergies*] Allergy (Verified 08/26/23 11:17) HPI HPI Comments 2 History of Present Illness0 Details 57-year-old female patient returning 1 w standing rock following excision of a neurofibroma from the posterior left scalp. She tolerated the procedure well and returns today for wound check and suture removal. She does report some numbness around the incision extending up the scalp but denies any bleeding or discharge. Pathology confirmed a neurofibroma. [facility] Medical History Fatty liver IBS (irritable bowel syndrome) History of COVID-19 Neurofibroma of multiple sites Hypothyroid PONV (postoperative nausea and vomiting) Diabetes High cholesterol HTN (hypertension) Surgical History History of excision of mass (08/16/23) S/P right knee arthroscopy (1994) Hx of laparoscopic gastric banding (04/23/21) History of hysterectomy (11/29/06) History of colonoscopy (02/04/21) Family History Father Hx of type 2 diabetes mellitus History of high cholesterol Family history of high blood pressure Mother Hx of type 2 diabetes mellitus Family history of high blood pressure Brother High cholesterol Hypertension Brother High cholesterol Hypertension Brother Hypertension High cholesterol Sister Hypertension High cholesterol Daughter No problems noted. Daughter No problems noted. 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 Sutures removed in the incision found to be well healed. Head images: 2 1. Site of incision posterior left scalp Neuro General: patient oriented x3 Assessment & Plan Assessment & Plan (1) Neurofibromatosis: Code(s): Q85.00 - Neurofibromatosis, unspecified Plan 57-year-old female returning 1 week following excision of a posterior left scalp neurofibroma. She tolerated the procedure well and her wounds are well healed. She should follow up as needed. Coding Level of Care Code Global (02209) Diagnoses Neurofibromatosis Q85.00
[2023-08-26 11:16] VITALS: BP 169/79; PULSE 66; BMI 31.9
== END 2023-08-26 11:21 | disposition home or self-care (01) ==
PROVIDERS: PCP Internal Medicine; Visit Provider Surgery
DX: Q85.00 Neurofibromatosis, unspecified (principal)
CPT/HCPCS: 99024

== ENCOUNTER → 2023-08-26 11:02 | Outpatient (BNVA) | payer OTHER, SELFPAY | PROVIDERS: PCP Internal Medicine; Visit Provider Surgery ==

== ENCOUNTER 2023-10-19 09:51 | Outpatient (AMB) | payer OTHER, SELFPAY ==
[2023-10-19 11:18] VITALS: BP 124/80; PULSE 79; TEMP 36.6; O2SAT 97; BMI 31.9
--- NOTE | 2023-10-19 11:18 | AM.OFFWIN_ITS ---
Intake Vital Signs 10/19/23 11:18 Height 5 ft 7 in Weight 204 lb BMI 31.9 BP 124/80 Blood Pressure Location Lt brachial Position Sitting Pulse 79 Pulse Source Pulse Oximeter Temp 97.8 F Temp Source Temporal Artery Scan Pulse Oximetry (%) 97 Intake Visit Reasons: EP, back pain Intake Note: pt is here for c/o back pain denies injury, states its full back and numbness and tingling Patient Tobacco Use Status: Former Tobacco user Allergies No Known Allergies [No Known Allergies*] Allergy (Verified 10/24/23 15:19) Medication List - Last Reconciled 10/24/23 by Vignesh Miner MD atorvastatin 40 mg PO DAILY blood sugar diagnostic As directed blood-glucose meter As directed cholecalciferol (vitamin D3) 25 mcg PO DAILY cyclobenzaprine 10 mg PO BEDTIME flash glucose sensor (FreeStyle Jaspal 2 Sensor kit) As directed lancets As directed levothyroxine 112 mcg PO DAILY losartan 50 mg PO DAILY lovastatin 20 mg PO DAILY meloxicam 15 mg PO DAILY sennosides (Natural Senna Laxative) 17.2 mg (2 x 8.6 mg) PO BEDTIME tirzepatide (Mounjaro) mg subcut vitamin A palmitate 10,000 units PO DAILY Do you need a note to return to daycare/school/sports/work: Yes HPI EP, back pain HPI Details Patient presents to the office for a sick visit. Complaining of lower back pain for the past week. No history of fall or trauma prior to the onset of symptoms. No urinary incontinence. No fevers or chills. Pain is worse on bending forwards or sideways. Relieve done sitting down. Pain is radiating into the gluteal area. [facility] Medical History Fatty liver IBS (irritable bowel syndrome) History of COVID-19 Neurofibroma of multiple sites Hypothyroid PONV (postoperative nausea and vomiting) Diabetes High cholesterol HTN (hypertension) Surgical History History of excision of mass (08/16/23) S/P right knee arthroscopy (1994) Hx of laparoscopic gastric banding (04/23/21) History of hysterectomy (01/01/07) History of colonoscopy (02/04/21) Family History Father Hx of type 2 diabetes mellitus History of high cholesterol Family history of high blood pressure Mother Hx of type 2 diabetes mellitus Family history of high blood pressure Brother High cholesterol Hypertension Brother High cholesterol Hypertension Brother Hypertension High cholesterol Sister Hypertension High cholesterol Daughter No problems noted. Daughter No problems noted. 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 Reproductive History Menstrual Age of Menarche: 11 Physical Exam Vital Signs: Last Vital Signs Temp 97.8 F 10/19/23 11:18 Pulse 79 10/19/23 11:18 BP 124/80 10/19/23 11:18 Pulse Ox 97 10/19/23 11:18 BMI result Body Mass Index 31.9 Const General: cooperative and healthy appearing Nutritional Appearance: well nourished Orientation/consciousness: patient oriented x3 Limitations: no limitations HEENT Head: Yes normal to inspection Eyes General: appearance normal, both eyes and all related structures Neck Neck: Yes normal visual inspection Chest Chest palpation & inspection: normal palpation of entire chest wall Resp Effort & Inspection: normal respiratory effort General: Yes no CVA tenderness Back/Spine/Pelvis Other: No spinal tenderness or paraspinal spasm. Back: no CVA tenderness Neuro General: patient oriented x3 Assessment & Plan Assessment & Plan (1) Low back pain: Code(s): M54.50 - Low back pain, unspecified Plan: Meloxicam and cyclobenzaprine called in. Toradol injection provided. Patient was advised rest. Note for work if necessary provided. Once pain symptoms subside, patient should start physical therapy. If symptoms worsen to follow-up here. Medications: New cyclobenzaprine 10 mg PO BEDTIME 14 tabs 0RF meloxicam 15 mg PO DAILY 14 tabs 0RF Coding Level of Care Code Est Pt Level 3 (89366) Diagnoses Low back pain M54.50
== END 2023-10-19 11:57 | disposition home or self-care (01) ==
PROVIDERS: PCP Internal Medicine; Visit Provider Internal Medicine
DX: M54.50 Low back pain, unspecified (principal)
CPT/HCPCS: 99213

== ENCOUNTER 2023-10-25 08:14 | Outpatient (AMB) | payer OTHER, SELFPAY ==
[2023-10-25 08:36] VITALS: BP 142/80; PULSE 76; TEMP 36.6; O2SAT 97; BMI 31.9
--- NOTE | 2023-10-25 08:36 | AM.OFFWIN_ITS ---
Intake Vital Signs 10/25/23 08:36 Height 5 ft 7 in Weight 204 lb BMI 31.9 BP 142/80 H Blood Pressure Location Lt brachial Position Sitting Pulse 76 Pulse Source Pulse Oximeter Temp 97.9 F Temp Source Temporal Artery Scan Pulse Oximetry (%) 97 Oxygen Delivery Method Room Air Intake Visit Reasons: EP Back pain Intake Note: pt is here for c/o back pain Patient Tobacco Use Status: Former Tobacco user Allergies No Known Allergies [No Known Allergies*] Allergy (Verified 10/25/23 09:12) Medication List - Last Reconciled 10/25/23 by Vignesh Miner MD atorvastatin 40 mg PO DAILY blood sugar diagnostic As directed blood-glucose meter As directed cholecalciferol (vitamin D3) 25 mcg PO DAILY cyclobenzaprine 10 mg PO BEDTIME flash glucose sensor (FreeStyle Jaspal 2 Sensor kit) As directed lancets As directed levothyroxine 112 mcg PO DAILY losartan 50 mg PO DAILY lovastatin 20 mg PO DAILY meloxicam 15 mg PO DAILY sennosides (Natural Senna Laxative) 17.2 mg (2 x 8.6 mg) PO BEDTIME tirzepatide (Mounjaro) mg subcut vitamin A palmitate 10,000 units PO DAILY Do you need a note to return to daycare/school/sports/work: Yes HPI EP Back pain HPI Details 57-year-old female presents to the [facility] for a sick visit. Patient was seen last week for neck pain and upper back pain. She did not improve on the medications provided. Patient continues to have worsening pain in the neck and upper back with weakness in the left arm. Also complaining of lower back pain. Able to ambulate and do activities of daily living. [facility] Medical History Fatty liver IBS (irritable bowel syndrome) History of COVID-19 Neurofibroma of multiple sites Hypothyroid PONV (postoperative nausea and vomiting) Diabetes High cholesterol HTN (hypertension) Surgical History History of excision of mass (08/16/23) S/P right knee arthroscopy (1994) Hx of laparoscopic gastric banding (04/23/21) History of hysterectomy (11/29/06) History of colonoscopy (02/04/21) Family History Father Hx of type 2 diabetes mellitus History of high cholesterol Family history of high blood pressure Mother Hx of type 2 diabetes mellitus Family history of high blood pressure Brother High cholesterol Hypertension Brother High cholesterol Hypertension Brother Hypertension High cholesterol Sister Hypertension High cholesterol Daughter No problems noted. Daughter No problems noted. 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 No spinal tenderness, no paraspinal tenderness. Lower back: No spinal or paraspinal spasm. Assessment & Plan Assessment & Plan (1) Upper back pain: Code(s): M54.9 - Dorsalgia, unspecified Plan Prednisone added to the regimen. Patient was encouraged to take the cyclobenzaprine up to 3 times a day. I also encouraged her to follow-up with her primary care's should diagnostic interventions be needed. Patient will return with a family member to get the Toradol injection. Coding Level of Care Code Est Pt Level 4 (80457) Diagnoses Upper back pain M54.9
== END 2023-10-25 09:18 | disposition home or self-care (01) ==
PROVIDERS: PCP Internal Medicine; Visit Provider Internal Medicine
DX: M54.9 Dorsalgia, unspecified (principal); M54.50 Low back pain, unspecified
CPT/HCPCS: 96372; 99214; J1885

== ENCOUNTER 2023-11-02 09:43 | Outpatient (AMB) | payer OTHER, SELFPAY ==
[2023-11-02 09:58] VITALS: BP 139/77; PULSE 79; RESP 18; O2SAT 100
--- NOTE | 2023-11-02 09:58 | A.OFFVIS_ITS ---
Intake Vital Signs 11/02/23 09:58 Height 5 ft 7 in BP 139/77 Blood Pressure Location Lt brachial Position Sitting Respiration 18 Pulse 79 Pulse Source Pulse Oximeter Pulse Oximetry (%) 100 Oxygen Delivery Method Room Air Intake Visit Reasons: Thoracic back pain/Confirmed Allergies No Known Allergies [No Known Allergies*] Allergy (Verified 11/02/23 09:52) HPI HPI Comments History of Present Illness Details Nanette is a very pleasant 57 year old female who presents to the office today for evaluation and management of her back pain. Patient reports approx 3weeks of upper and lower back pain without inciting injury. Pain is unchanged with movement, bending, twisting, sitting ,standing. Pain is constant, aching and just there . She denies radiation of the pain. Denies lower extremity weakness, numbness or tingling. Denies red flag symptoms including new loss of bowel, bladder or saddle anesthesia. Patient has been evaluation at walk-in twice recently, was given muscle relaxer that she takes at bedtime. Reports this helps with her pain and allows her to sleep. She is not able to take this during the day while at work because it makes her sleepy. She has been taking NSAIDs also. Has not been to PT, chiropractor, acupuncture or massage. She has no recent imaging. In terms of muscle damage condition is described as aching. Pain is negatively impacting patient's general activity, mood, normal work, sleep and walking. Patient's past medical history significant for diabetes, hypertension, vitamin-D deficiency, irritable bowel syndrome, history of weight loss surgery and degenerative disc disease. Patient recently started taking Mounjaro for her diabetes. She is currently taking 2.5 mg subcutaneous injections once weekly. This medication was started approximately 4 weeks ago, the patient notes the pain in her back started shortly after initiation of this medication. [facility] Medical History (Updated 11/02/23 @ 10:57 by Olga Hines APRN, CARPET INSTALLATION SPECIALIST) Fatty liver IBS (irritable bowel syndrome) History of COVID-19 Neurofibroma of multiple sites Hypothyroid PONV (postoperative nausea and vomiting) Diabetes High cholesterol HTN (hypertension) Surgical History History of excision of mass (08/16/23) S/P right knee arthroscopy (1994) Hx of laparoscopic gastric banding (04/23/21) History of hysterectomy (11/29/06) History of colonoscopy (02/04/21) Family History Father Hx of type 2 diabetes mellitus History of high cholesterol Family history of high blood pressure Mother Hx of type 2 diabetes mellitus Family history of high blood pressure Brother High cholesterol Hypertension Brother High cholesterol Hypertension Brother Hypertension High cholesterol Sister Hypertension High cholesterol Daughter No problems noted. Daughter No problems noted. 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 Answers questions appropriately. Fully engaged in examination. Skin: warm, dry, intact HEENT: Normocephalic. Hearing intact. Cardiac: External chest normal in appearance. Respiratory: No cough, audible wheezing or stridor. Abdomen: without gross distension. MS: No obvious swelling or deformities. Able to transition from sit to stand unassisted. Ambulates with bilaterally normal heel strike and toe off ROM intact with flexion to 100 degrees and extension to 15 degrees Nontender over paraspinal muscles, PSIS, midline vertebrae SLR with and without dorsiflexion negative bilaterally Neurological: Oriented to person, place, time and situation. Thought process intact. No gait abnormalities appreciated. Psychiatric: Appropriate mood and affect. Good judgment and insight. Assessment & Plan Assessment & Plan (1) Lumbar spondylosis: Code(s): M47.816 - Spondylosis without myelopathy or radiculopathy, lumbar region (2) Cervical spondylolysis: Code(s): M43.02 - Spondylolysis, cervical region (3) Myalgia, multiple sites: Code(s): M79.18 - Myalgia, other site Plan Nanette is a very pleasant 57 year old female who presented to the office for evaluation and management of her upper and lower back pain. Patient has been suffering with this pain for last 3 weeks, with 2 recent visits to urgent care. Taking Flexeril with moderate relief, not able to take during the day d/t work and side effect of somnolence. Will try Baclofen 5mg po TID as needed given less sedating effects. Order placed for PT eval and treat. Xrays CS and LS ordered Discussion with patient that onset of symptoms coincides with starting Mounjaro which does have known side effect of myalgias in some patients. Referred to PCP to discuss this further. Most likely will resolve as her body becomes accustomed to the medication, but she tolerated Ozempic in the past without notable side effects so may consider switching back. Patient verbalizes understanding, agrees to the plan. No further questions. Follow up in the office after PT, sooner if needed. Orders: Orders PT Evaluation and Treatment Today M54.9 - Dorsalgia, unspecified XR cervical spine w flex/ext Today M43.02 - Spondylolysis, cervical region XR lumbar spine 4V min Today M47.816 - Spondylosis without myelopathy or radiculopathy, lumbar region Medications: New baclofen 5 mg PO TID 60 tabs 0RF Coding Level of Care Code New Pt Level 4 (02701) Diagnoses Lumbar spondylosis M47.816 Cervical spondylolysis M43.02 Myalgia, multiple sites M79.18
== END 2023-11-02 10:18 | disposition home or self-care (01) ==
PROVIDERS: PCP Internal Medicine; Referring Provider Internal Medicine; Visit Provider Registered Nurse Emergency
DX: M47.816 Spondylosis without myelopathy or radiculopathy, lumbar region (principal); M43.02 Spondylolysis, cervical region; M79.18 Myalgia, other site
CPT/HCPCS: 99204

== ENCOUNTER 2023-11-02 09:43 | Outpatient (REF) | payer OTHER, SELFPAY ==
--- NOTE | ~2023-11-02 | XR_ITS ---
EXAMINATION: XR CERVICAL AND LUMBAR SPINE CLINICAL INFORMATION: Pain. COMPARISON: None available. TECHNIQUE: 7 view cervical spine including flexion-extension views. Five-view lumbar spine. FINDINGS: There is no evidence of acute fracture of the cervical spine. No abnormal prevertebral soft tissue swelling is seen. No instability is noted on flexion-extension views. There is minimal narrowing of the C6-C7 and C7-T1 disc spaces with some mild marginal spurring. Bony neural foramina appear unremarkable. There is lumbarization of S1. There is narrowing of the L5-S1 and S1-S2 disc spaces. There is facet arthropathy seen L5-S1. No significant abnormality of the sacroiliac joints is seen. 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 No acute fracture, spondylolisthesis, or spondylolysis identified. Gastric lap band in place. XR/XR cervical spine w flex/ext IMPRESSION: Mild cervical spondylosis C6-T1. 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
--- NOTE | ~2023-11-02 | XR_ITS ---
EXAMINATION: XR CERVICAL AND LUMBAR SPINE CLINICAL INFORMATION: Pain. COMPARISON: None available. TECHNIQUE: 7 view cervical spine including flexion-extension views. Five-view lumbar spine. FINDINGS: There is no evidence of acute fracture of the cervical spine. No abnormal prevertebral soft tissue swelling is seen. No instability is noted on flexion-extension views. There is minimal narrowing of the C6-C7 and C7-T1 disc spaces with some mild marginal spurring. Bony neural foramina appear unremarkable. There is lumbarization of S1. There is narrowing of the L5-S1 and S1-S2 disc spaces. There is facet arthropathy seen L5-S1. No significant abnormality of the sacroiliac joints is seen. 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 No acute fracture, spondylolisthesis, or spondylolysis identified. Gastric lap band in place. XR/XR lumbar spine 4V min IMPRESSION: Mild cervical spondylosis C6-T1. 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
== END 2023-11-02 09:44 | disposition home or self-care (01) ==
LOC: HO.XRAY 09:43
PROVIDERS: PCP Internal Medicine; Referring Provider Internal Medicine; Visit Provider Registered Nurse Emergency
DX: M47.816 Spondylosis without myelopathy or radiculopathy, lumbar region (principal); M43.02 Spondylolysis, cervical region; M79.18 Myalgia, other site
CPT/HCPCS: 72052; 72110

== ENCOUNTER 2023-11-11 06:01 | Outpatient (REF) | payer OTHER, SELFPAY ==
--- NOTE | ~2023-11-11 | XR_ITS ---
EXAMINATION: XR SHOULDER, LEFT CLINICAL INFORMATION: Left shoulder pain. COMPARISON: None available. TECHNIQUE: AP, scapular Y, and axillary views of the left shoulder. FINDINGS: No acute fracture or dislocation. Mild acromioclavicular joint space narrowing with small marginal osteophytes. No significant glenohumeral joint space narrowing. Small glenoid marginal osteophytes. No osseous erosion. No abnormal soft tissue calcification. XR/XR shoulder LT min 2V IMPRESSION: Mild acromioclavicular and glenohumeral osteoarthritis.
== END 2023-11-11 06:02 | disposition home or self-care (01) ==
LOC: HO.HOSX 06:01
PROVIDERS: Visit Provider Physician Assistant
DX: M75.21 Bicipital tendinitis, right shoulder (principal); M19.011 Primary osteoarthritis, right shoulder; Z79.899 Other long term (current) drug therapy
CPT/HCPCS: 73030

== ENCOUNTER 2023-11-11 08:59 | Outpatient (AMB) | payer OTHER, SELFPAY ==
[2023-11-11 09:06] VITALS: BMI 31.9
--- NOTE | 2023-11-11 09:06 | A.OFFVIS_ITS ---
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 Patient reports pain intermittent pain since 2016 when she was told having a laberal tear and artritis. Currently she has constant pain with numbness and tingling that travels down to her fingers. Denies injury. She was seen at [facility] walk in clinic where she was prescribed cyclobenzaprine and meloxicam that helped her sleep at night. Finds some relief with OTC Tyelnol. Allergies No Known Allergies [No Known Allergies*] Allergy (Verified 11/11/23 09:07) Medication List - Last Reconciled 11/11/23 by Derick Vázquez PA-C atorvastatin 40 mg PO DAILY baclofen 5 mg PO TID blood sugar diagnostic As directed blood-glucose meter As directed celecoxib (Celebrex) 200 mg PO BID 30 days cholecalciferol (vitamin D3) 25 mcg PO DAILY flash glucose sensor (FreeStyle Jaspal 2 Sensor kit) As directed lancets As directed levothyroxine 112 mcg PO DAILY losartan 50 mg PO DAILY lovastatin 20 mg PO DAILY sennosides (Natural Senna Laxative) 17.2 mg (2 x 8.6 mg) PO BEDTIME tirzepatide (Mounjaro) mg subcut vitamin A palmitate 10,000 units PO DAILY HPI SOCIAL SERVICES ASSISTANT-Left shoulder 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 She has a h/o left shoulder pain, states she was diagnosed with a labral tear and arthritis in 2017. No treatment for this , as it resoled on its own. She currently states she has constant pain, numbness and tingling in the anterior aspect of her shoulder which radiates down to her fingers. Her pain is aggravated with sitting, typing and lifting objects. She denies any pain with overhead reaching or reaching the sides. She was seen at [facility] walk-in clinic where she was prescribed cyclobenzaprine and meloxicam which provided her relief to sleep at night. She finds mild relief with OTC Tylenol. She is currently being treated by pain mgmnt for her back/neck pain and was referred to PT. She has a history of diabetes. [facility] Medical History (Updated 11/11/23 @ 09:28 by Derick Vázquez PA-C) Fatty liver IBS (irritable bowel syndrome) History of COVID-19 Neurofibroma of multiple sites Hypothyroid PONV (postoperative nausea and vomiting) Diabetes High cholesterol HTN (hypertension) Surgical History History of excision of mass (08/16/23) S/P right knee arthroscopy (1994) Hx of laparoscopic gastric banding (04/23/21) History of hysterectomy (11/29/06) History of colonoscopy (02/04/21) Family History Father Hx of type 2 diabetes mellitus History of high cholesterol Family history of high blood pressure Mother Hx of type 2 diabetes mellitus Family history of high blood pressure Brother High cholesterol Hypertension Brother High cholesterol Hypertension Brother Hypertension High cholesterol Sister Hypertension High cholesterol Daughter No problems noted. Daughter No problems noted. 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 Female Reproductive History Menstrual Age of Menarche: 11 Review of Systems Const All systems reviewed & are unremarkable except as noted in HPI and below Physical Exam Vital Signs: BMI result Body Mass Index 31.9 Const General: cooperative, healthy appearing, comfortable, no acute distress, well developed and alert Orientation/consciousness: patient oriented x3 HEENT Head: Yes normal to inspection, Yes normocephalic and Yes atraumatic Eyes General: appearance normal, both eyes and all related structures Resp Effort & Inspection: normal respiratory effort and able to speak in complete sentences Cardio Rate: regular rate Peripheral pulses: Peripheral pulses 2+ throughout GI Palpation (GI): Soft to palpation Skin Lesions: no lesions Rashes: no rashes Neuro General: patient oriented x3 Extrem Other: Left shoulder normal to inspection. Tenderness over the bicipital groove and along the deltoid region of the shoulder. Forward flexion to 175, external rotation to 90, internal rotation to S1. 5/5 RTC strength. Negative Frias and cross body abduction. NVI. Results Reviewed Results Reviewed: Xrays were obtained in the office today and personally reviewed by me of the left shoulder show acj oa with type 2 acromion Assessment & Plan Assessment & Plan (1) Biceps tendonitis on right: Code(s): M75.21 - Bicipital tendinitis, right shoulder (2) Osteoarthritis of right acromioclavicular joint: Code(s): M19.011 - Primary osteoarthritis, right shoulder Plan We discussed options which include PT, NSAIDs and injections. The patient will defer on the injection today and proceed with PT and NSAIDs. We are also going to order an EMG of the left shoulder to further evaluate the etiology of her numbness. A prescription of Celebrex was sent to her pharmacy to take twice a day for 2 weeks and then once a day as needed. If symptoms persist, the patient will contact me for an injection, otherwise, PRN. Orders: Orders XR shoulder LT min 2V Today M25.512 - Pain in left shoulder NE electromyogram (EMG) Today R20.0 - Anesthesia of skin, R20.2 - Paresthesia of skin PT Evaluation and Treatment Today M19.011 - Primary osteoarthritis, right shoul nga, M75.21 - Bicipital tendinitis, right shoulder NE nerve conduction velocity Today R20.0 - Anesthesia of skin, R20.2 - Paresthesia of skin Medications: New celecoxib (Celebrex) 200 mg PO BID 30 days 60 caps 3RF Patient Instructions: Scribed for Derick Vázquez PA-C, by Joseluis Villanueva medical library assistant, on 11/11/2023 at 9:15 AM JING. IDerick PA-C, have personally reviewed and agree with the information entered by the scribe. Coding Level of Care Code New Pt Level 3 (89514) Diagnoses Biceps tendonitis on right M75.21 Osteoarthritis of right acromioclavicular joint M19.011
== END 2023-11-11 09:31 | disposition home or self-care (01) ==
PROVIDERS: PCP Internal Medicine; Visit Provider Physician Assistant
DX: M75.21 Bicipital tendinitis, right shoulder (principal); M19.011 Primary osteoarthritis, right shoulder
CPT/HCPCS: 99204

== ENCOUNTER 2023-12-29 14:48 | Outpatient (REF) | payer OTHER, SELFPAY ==
--- NOTE | 2023-12-29 14:52 | EMG_ITS ---
Chief complaint: In 2017, she had left shoulder pain, diagnosed arthritis and torn labrum. Treated nonsurgically and resolved with time. Was doing well up until 4-5 months ago, started having left shoulder pain again. This time having pins and needles going down from shoulder to all her fingers. History of neurofibromatosis. Reason for referral: Evaluate for Carpal Tunnel Syndrome versus radiculopathy Referred by: Derick MOLINA Procedure done: Left upper extremity NCS/EMG Precautions and/or limitations: None The limb temperature was monitored continuously and remained between 32-36 degrees C during the performance of the NCS. Nerve Conduction Studies Anti Sensory Summary Table ?Stim Site NR Onset (ms) Norm Onset (ms) Peak (ms) Norm Peak (ms) O-P Amp (?V) Norm O-P Amp Site1 Site2 Delta-0 (ms) Dist (cm) Jaleel (m/s) Norm Jaleel (m/s) Left Median Anti Sensory (2nd Digit) Wrist ? 2.2 2.8 <3.6 63.0 >10 Wrist 2nd Digit 2.2 14.0 64 Left Radial Anti Sensory (Thumb) Forearm ? 1.9 2.6 <3.1 31.9 Forearm Thumb 1.9 0.0 Left Ulnar Anti Sensory (5th Digit) Wrist ? 2.6 3.4 <3.7 18.5 >15.0 Wrist 5th Digit 2.6 14.0 54 Motor Summary Table ?Stim Site NR Onset (ms) Norm Onset (ms) O-P Amp (mV) Norm O-P Amp iAmp (mV) Amp (1st) (%) Site1 Site2 Delta-0 (ms) Dist (cm) Jaleel (m/s) Norm Jaleel (m/s) Left Median Motor (Abd Poll Brev) Wrist ? 3.8 <3.9 11.1 >4.5 15.1 100.0 Elbow Wrist 4.3 23.0 53 >45 Elbow ? 8.1 10.7 14.4 96.4 Left Ulnar Motor (Abd Dig Minimi) Wrist ? 2.7 <3.0 7.4 >5 8.9 100.0 B Elbow Wrist 3.5 19.0 54 >45 B Elbow ? 6.2 6.7 8.1 90.5 A Elbow B Elbow 0.5 10.0 200 >45 A Elbow ? 6.7 6.3 8.2 85.1 EMG ?Side Muscle Nerve Root Ins Act Fibs Psw Amp Dur Poly Recrt Int Pat Comment Left 1stDorInt Ulnar C8-T1 Nml Nml Nml Nml Nml 0 Nml Complete Left FlexCarRad Median C6-7 Nml Nml Nml Nml Nml 0 Nml Complete Left Biceps Musculocut C5-6 Nml Nml Nml Nml Nml 0 Nml Complete Left Triceps Radial C6-7-8 Nml Nml Nml Nml Nml 0 Nml Complete Left Deltoid Axillary C5-6 Nml Nml Nml Nml Nml 0 Nml Complete Paraspinal EMG ?Side Muscle Nerve Root Ins Act Fibs Psw Comment Left Cervical Upper Rami Nml Nml Nml Left Cervical Mid Rami Nml Nml Nml Left Cervical Lower Rami Nml Nml Nml FINDINGS: All motor and sensory nerves tested showed normal latencies, amplitudes and conduction velocities. Concentric needle EMG was performed in selected muscles of the left upper extremity and cervical paraspinals. Study did not reveal signs of electric abnormalities as shown in the table below. IMPRESSION: 1. This is a normal study. 2. There is no electrodiagnostic evidence for median neuropathy, ulnar neuropathy, brachial plexopathy, or cervical radiculopathy. Thank you for your kind referral. Siri Benitez MD, KERI Board Certified, [place] Board of Physical Medicine and Rehabilitation (ABPMR) Board Certified, [place] Board of Electrodiagnostic Medicine (ABEM) CODIN [id number] MTDD
== END 2023-12-29 14:49 | disposition home or self-care (01) ==
LOC: HO.NEURO 14:48
PROVIDERS: PCP Internal Medicine; Visit Provider Physician Assistant
DX: R20.0 Anesthesia of skin (principal); R20.2 Paresthesia of skin
CPT/HCPCS: 95886; 95909

== ENCOUNTER → 2023-12-29 14:52 | Outpatient (BNV) | payer OTHER, SELFPAY | PROVIDERS: PCP Internal Medicine; Visit Provider Physical Medicine & Rehabilitation | DX: M25.512 Pain in left shoulder (principal) | CPT/HCPCS: 95886; 95909 ==

== ENCOUNTER 2024-01-01 06:35 | Outpatient (REF) | payer OTHER, SELFPAY ==
--- NOTE | ~2024-01-01 | MM_ITS ---
EXAMINATION: MM SCREENING DIGITAL BREAST TOMOSYNTHESIS, BILATERAL CLINICAL INFORMATION: Screening. Asymptomatic. COMPARISON: Mammography: This study is compared with the prior exams dating back to 2019. TECHNIQUE: Digital mammography is performed in craniocaudal and mediolateral oblique views along with computer-aided detection (CAD). Digital breast tomosynthesis is performed in implant-displaced craniocaudal and implant-displaced mediolateral oblique views along with computer-aided detection (CAD). Synthesized 2D images are generated from the tomosynthesis. FINDINGS: There are scattered areas of fibroglandular density (ACR BI-RADS breast composition Category b). There are no significant masses, abnormal calcifications, or other abnormalities. MM/MM tomosynthesis screen imp BI IMPRESSION: There are no significant changes from prior study. ASSESSMENT: BI-RADS BI-RADS 1 - Negative RECOMMENDATION: Routine annual mammography screening. 1 year F/U This patient's information was entered into a reminder system with a target due date for their next mammogram.
[2024-01-01 12:20] LABS: Anion Gap 12 (12-20); Blood Urea Nitrogen 13 mg/dL (9-16); Calcium 9.2 mg/dL (8.4-10.2); Carbon Dioxide 25 mmol/L (22-29); Chloride 107 mmol/L (96-108); Cholesterol 130 mg/dL (<200); Estimated Glomerular Filt Rate > 60; Glucose Random 118 mg/dL (60-115); HDL Cholesterol 55 mg/dL (>40); LDL Cholesterol Calculated 61 mg/dL (<100); Sodium 140 mmol/L (135-145); Triglycerides 70 mg/dL (<150)
[2024-01-01 12:21] LABS: Thyroid Stimulating Hormone 2.25 uIU/mL (0.32-4.0)
== END 2024-01-01 06:36 | disposition home or self-care (01) ==
LOC: HO.HMGCLDS 06:35
PROVIDERS: PCP Internal Medicine; Visit Provider Physician Assistant Medical
DX: Z12.31 Encounter for screening mammogram for malignant neoplasm of breast (principal); I10 Essential (primary) hypertension; E78.5 Hyperlipidemia, unspecified; E11.9 Type 2 diabetes mellitus without complications; E03.9 Hypothyroidism, unspecified
CPT/HCPCS: 36415; 77063; 77067; 80048; 80061; 84443

== ENCOUNTER 2024-01-01 07:31 | Outpatient (REF) | payer OTHER, SELFPAY | END 2024-01-01 07:32 | disposition home or self-care (01) | LOC: HO.MAMMO 07:31 | PROVIDERS: PCP Internal Medicine; Visit Provider Internal Medicine | DX: Z13.89 Encounter for screening for other disorder (principal) ==

== ENCOUNTER → 2024-01-01 07:45 | Outpatient (BNV) | payer OTHER, SELFPAY | PROVIDERS: PCP Internal Medicine; Visit Provider Radiology Diagnostic Radiology | DX: Z12.31 Encounter for screening mammogram for malignant neoplasm of breast (principal) | CPT/HCPCS: 77063; 77067 ==

== ENCOUNTER 2024-01-19 14:00 | Outpatient (RCR) | payer OTHER, SELFPAY ==
--- NOTE | 2023-12-22 14:57 | MHC.PT.EP ---
[facility] [place] Office [place] [facility] [place] Office [address] Tawnya Robison [address] [phone] F: [phone] F: [phone] F: [phone] F: [phone] Physical Therapy Plan of Care Date of Evaluation: 12/22/23 Date of Surgery: Diagnosis: dorsalgia Assessment: Patient is a 58 year old R handed female who presents with s/s consistent with dorsalgia, back pain. 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 Patient past medical history includes DM, HTN, IBS. Current impairments include pain, posture, ROM, strength, flexibility, activity tolerance and functional mobility. 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 Patient is motivated with good rehab potential. Skilled PT will address impairments and functional limitations in order to achieve goals. Frequency and Duration: The patient will be seen 1x/week for 6 weeks Short Term Goals: I with HEP - 2 weeks Pec tightness min - 3 weeks I with lumbar roll at work - 3 weeks Improved postural awareness - 3 weeks Nursing Home Goals: Oswestry 10% or less - 6 weeks Max pain during work day 01/08 - 6 weeks TTP absent between shoulder blades and lumbar spine - 6 weeks Treatment Plan: Modalities to reduce pain, spasms and effusion. Manual therapy to restore motion and function. Therapeutic exercise to improve strength and flexibility. Neuromuscular re-education for posture and balance. Therapeutic activities to return to functional activities of daily living. Electronically signed by: Ulises Wen, PT Please sign and return to therapist. Thank you for your referral.
--- NOTE | 2024-08-14 14:57 | MHC.PT.DC ---
[facility] [place] Office [place] Office [place] Office [address] Tawnya Robison [address] [phone] F: [phone] F: [phone] F: [phone] F: [phone] Physical Therapy Discharge Report Diagnosis: dorsalgia Date of Surgery: Date of Evaluation: 12/22/23 Date of Discharge: 02/06/24 Treatments to Date: 4 Cancellations to Date: No Shows to Date: Discharge Status: Patient Elected to Stop Discharge Summary: 01/19;Pt reported decreased tightness, stiffness and pain after RX. Fascia restrictions in body. 01/03/24: pt has been feeling varying location pain. pt is not worse. i educated her on continued consistency with HEP and discernment on effectiveness of program. 12/27/23: pt progressing well with skilled PT. progressing well with ROM and posture. lumbar roll used at work. continue to educate on posture. Patient is a 58 year old R handed female who presents with s/s consistent with dorsalgia, back pain. 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 Patient past medical history includes DM, HTN, IBS. Current impairments include pain, posture, ROM, strength, flexibility, activity tolerance and functional mobility. 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 Patient is motivated with good rehab potential. Skilled PT will address impairments and functional limitations in order to achieve goals. Electronically signed by: Ulises Wen, PT Please sign and return to therapist. Thank you for your referral.
== END 2024-08-14 14:57 | disposition home or self-care (01) ==
LOC: HO.PTCHIC 14:00
PROVIDERS: PCP Internal Medicine; Visit Provider Registered Nurse Emergency
DX: M54.9 Dorsalgia, unspecified (principal)
CPT/HCPCS: 97110; 97162

== ENCOUNTER 2024-01-31 13:45 | Outpatient (AMB) | payer OTHER, SELFPAY ==
--- NOTE | 2024-01-31 13:59 | A.OFFVIS_ITS ---
Intake Intake Visit Reasons: Tele- EMG review Allergies No Known Allergies [No Known Allergies*] Allergy (Verified 11/11/23 09:07) HPI Tele- EMG review HPI Details 58 yo female presents for telehealth EMG review. She states the numbness has slightly improved but the shoulder pain has worsened and is limiting her activities. She has been working with PT but this has worsened her back pain. [facility] Medical History (Updated 11/11/23 @ 09:28 by Derick Vázquez PA-C) Fatty liver IBS (irritable bowel syndrome) History of COVID-19 Neurofibroma of multiple sites Hypothyroid PONV (postoperative nausea and vomiting) Diabetes High cholesterol HTN (hypertension) Surgical History History of excision of mass (08/16/23) S/P right knee arthroscopy (1994) Hx of laparoscopic gastric banding (04/23/21) History of hysterectomy (11/29/06) History of colonoscopy (02/04/21) Family History Father Hx of type 2 diabetes mellitus History of high cholesterol Family history of high blood pressure Mother Hx of type 2 diabetes mellitus Family history of high blood pressure Brother High cholesterol Hypertension Brother High cholesterol Hypertension Brother Hypertension High cholesterol Sister Hypertension High cholesterol Daughter No problems noted. Daughter No problems noted. 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 Female Reproductive History Menstrual Age of Menarche: 11 Review of Systems Const All systems reviewed & are unremarkable except as noted in HPI and below Physical Exam Resp Effort & Inspection: normal respiratory effort and able to speak in complete sentences Assessment & Plan Assessment & Plan (1) Biceps tendonitis on right: Code(s): M75.21 - Bicipital tendinitis, right shoulder (2) Osteoarthritis of right acromioclavicular joint: Code(s): M19.011 - Primary osteoarthritis, right shoulder Plan Given her ongoing pain and limitations, an MRI of the left shoulder was ordered to further evaluate integrity of RTC. Once the MRI is complete, she will see me back to determine the next step in her treatment. Orders: Orders MR shoulder LT wo con Today S46.009A - Unspecified injury of muscle(s) and tendon(s) of the rotator cuff of unspecified shoulder, initial encounter Patient Instructions: Scribed for Derick Vázquez PA-C, by Joseluis Villanueva director medical safety, on 01/31/2024 at 1:30 PM EST. I, Derick Vázquez PA-C, have personally reviewed and agree with the information entered by the scribe. Telehealth Telehealth Location of provider rendering services: practice address Location of patient: other Patient Identification confirmed using: Name, : Yes Telehealth method: voice only Patient verbally consented to treatment: Yes Patient verbally consented to billing insurance company: Yes Patient informed of any privacy concerns related to visit: Yes Minutes spent on Phone/Video with Pt.: 10 Coding Level of Care Code Tele Est Pt Level 3 (56482) Diagnoses Biceps tendonitis on right M75.21 Osteoarthritis of right acromioclavicular joint M19.011
== END 2024-01-31 13:53 | disposition home or self-care (01) ==
LOC: HO.HOS 13:46
PROVIDERS: PCP Internal Medicine; Visit Provider Physician Assistant
DX: M75.21 Bicipital tendinitis, right shoulder (principal); M19.011 Primary osteoarthritis, right shoulder
CPT/HCPCS: 99213

== ENCOUNTER → 2024-01-31 13:45 | Outpatient (BNVA) | payer OTHER, SELFPAY | PROVIDERS: PCP Internal Medicine; Visit Provider Physician Assistant ==

== ENCOUNTER 2024-02-03 11:22 | Outpatient (REF) | payer OTHER, SELFPAY ==
--- NOTE | ~2024-02-03 | MR_ITS ---
EXAMINATION: MR SHOULDER WITHOUT CONTRAST, LEFT CLINICAL INFORMATION: Unspecified injury off muscle/tendons COMPARISON: X-ray 11/11/2023 TECHNIQUE: MRI of the shoulder without contrast was performed on a high-field scanner. FINDINGS: ROTATOR CUFF: Mild-moderate supraspinatus tendinosis. No focal tear. Infraspinatus, teres minor is intact. Mild subscapularis tendinosis, mild articular surface fraying. No muscle atrophy or fatty infiltration. BICEPS: Intact CORACOACROMIAL ARCH: The undersurface of the acromion is curved with no subacromial spur. Mild acromioclavicular arthritis. LABRUM/CAPSULE: No labral tear is seen. No paralabral cyst. GLENOHUMERAL JOINT/MARROW: No fracture. No significant chondral loss. No suspicious bony lesions. No axillary lymphadenopathy. MR/MR shoulder LT wo con IMPRESSION: 1. Mild-moderate supraspinatus tendinosis. No focal tear. 2. Mild subscapularis tendinosis, mild articular surface fraying. 3. Mild acromioclavicular arthritis.
== END 2024-02-03 11:23 | disposition home or self-care (01) ==
LOC: HO.MRI 11:22
PROVIDERS: PCP Internal Medicine; Visit Provider Physician Assistant
DX: S46.002A Unspecified injury of muscle(s) and tendon(s) of the rotator cuff of left shoulder, initial encounter (principal)
CPT/HCPCS: 73221

== ENCOUNTER 2024-02-25 11:31 | Outpatient (AMB) | payer OTHER, SELFPAY ==
--- NOTE | 2024-02-25 11:51 | MHC.OFFVIS ---
Intake Vital Signs 02/25/24 11:53 Height 5 ft 7 in Weight 204 lb BMI 31.9 Intake Visit Reasons: OV-Left shoulder injection Intake Note: Nanette is a 58 year old female who presents today for a follow up of her left shoulder. She was last seen with Derick who reccomends injection, patient is anxious but would like to proceed with injection. Allergies No Known Allergies [No Known Allergies*] Allergy (Verified 02/25/24 11:55) HPI OV-Left shoulder injection HPI Details This is a 58 yo F with left shoulder pain . She describes pain in her anterior arm and forearm that extends down into her hand. It is not all the time but it is bothersome. She denies injury. She denies night pain. She has NF1. [facility] Medical History (Updated 02/25/24 @ 12:22 by Teddy Benitez MD) Fatty liver IBS (irritable bowel syndrome) History of COVID-19 Neurofibroma of multiple sites Hypothyroid PONV (postoperative nausea and vomiting) Diabetes High cholesterol HTN (hypertension) Surgical History History of excision of mass (08/16/23) S/P right knee arthroscopy (1994) Hx of laparoscopic gastric banding (04/23/21) History of hysterectomy (11/29/06) History of colonoscopy (02/04/21) Family History Father Hx of type 2 diabetes mellitus History of high cholesterol Family history of high blood pressure Mother Hx of type 2 diabetes mellitus Family history of high blood pressure Brother High cholesterol Hypertension Brother High cholesterol Hypertension Brother Hypertension High cholesterol Sister Hypertension High cholesterol Daughter No problems noted. Daughter No problems noted. 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 Female Reproductive History Menstrual Age of Menarche: 11 Physical Exam Vital Signs: BMI result Body Mass Index 31.9 Const General: cooperative, healthy appearing, no acute distress and well groomed Orientation/consciousness: oriented to person and oriented to place HEENT Head: Yes normal to inspection, Yes normocephalic and Yes atraumatic Eyes General: appearance normal, both eyes and all related structures Alignment and Position: alignment normal Conjunctivae: conjunctivae normal EOM: EOMs intact bilaterally Neck Neck: Yes normal visual inspection and Yes trachea midline Resp Other: No rerpiratory distress Effort & Inspection: normal respiratory effort and able to speak in complete sentences Cardio Other: Palpable radial pulse with no appreciable rythmic abnormalities GI Other: No abdominal distension Back/Spine/Pelvis Cervical Spine: normal cervical lordosis and cervical ROM normal Skin Other: neurofibromatosis cutaneous Neuro General: oriented to person, oriented to place and gait normal Extrem Other: Nl left shoulder exam Neg Spurling's ? Kaur ? inverted radial reflex Results Reviewed Results Reviewed: I personally reviewed the MR images. Left shoulder MRI with minimal tendonosis only Cervical radiographs: There is minimal narrowing of the C6-C7 and C7-T1 disc spaces with some mild marginal spurring. Bony neural foramina appear unremarkable. Assessment & Plan Assessment & Plan (1) Cervical radiculopathy at C6: Code(s): M54.12 - Radiculopathy, cervical region Plan: Symptoms of mild radiculopathy in setting of neurofibromatosis. MRI of cervical spine ordered. There does not appear to be any evidence of shoulder pathology. Orders: Orders MR cervical spine wo con 02/25/24 M54.12 - Radiculopathy, cervical region Coding Level of Care Code Est Pt Level 4 (05233) Diagnoses Cervical radiculopathy at C6 M54.12
[2024-02-25 11:53] VITALS: BMI 31.9
== END 2024-02-25 12:55 | disposition home or self-care (01) ==
PROVIDERS: PCP Internal Medicine; Visit Provider Orthopaedic Surgery
DX: M54.12 Radiculopathy, cervical region (principal)
CPT/HCPCS: 99213

== ENCOUNTER → 2024-02-25 11:31 | Outpatient (BNVA) | payer OTHER, SELFPAY | PROVIDERS: PCP Internal Medicine; Visit Provider Orthopaedic Surgery | DX: M54.12 Radiculopathy, cervical region (principal) | CPT/HCPCS: J0665; J1100 ==

== ENCOUNTER 2024-03-24 17:38 | Outpatient (REF) | payer OTHER, SELFPAY ==
--- NOTE | ~2024-03-24 | MR_ITS ---
EXAMINATION: MR CERVICAL SPINE WITHOUT CONTRAST CLINICAL INFORMATION: Radiculopathy. Bilateral arm pain with numbness. COMPARISON: X-ray cervical spine dated 11/02/2023. TECHNIQUE: Multiplanar, multisequential imaging of the cervical spine was performed without contrast. Slightly limited study with motion artifacts. FINDINGS: VERTEBRAL BODIES AND PARASPINAL SOFT TISSUES: The marrow signal is within normal limits. There are no compression fractures or subluxations. No marrow or soft tissue edema identified. Mild leftward curvature of the lower cervical spine evident. The paraspinal soft tissues are normal. The vertebral artery flow-voids are maintained. In the suboccipital scalp spanning inferiorly to the lower C2 level, there are multiple dermal scalp nodules partially visualized, which are entirely nonspecific. CERVICOMEDULLARY JUNCTION AND VISUALIZED POSTERIOR FOSSA: The craniovertebral junction and imaged portions of the brain parenchyma appear normal. No cord signal abnormality or syrinx is seen. SPINAL LEVELS: C2-C3: No disc pathology. No central canal stenosis or foraminal narrowing. C3-C4: No disc abnormality. Patent central canal and foramina. C4-C5: Shallow right paracentral disc protrusion mildly impressing upon the ventral cord without central canal stenosis or foraminal narrowing. C5-C6: Very small central disc protrusion. No central canal stenosis or foraminal narrowing. C6-C7: Mild loss of disc height and shallow right paracentral disc protrusion. No central canal stenosis or foraminal narrowing. C7-T1: Bulky anterior endplate spurring and very mild posterior disc bulge. No central canal stenosis. Uncovertebral joint spurring and facet arthropathy contribute to mild bilateral foraminal encroachment. MR/MR cervical spine wo con IMPRESSION: Mild cervical spondylosis. Small disc protrusions at the C4-C5, C5-C6, and C6-C7 levels. No central canal stenosis. Mild bilateral foraminal narrowing with a shallow disc bulge and osseous spurring at the C7-T1 level. No cord signal abnormality.
== END 2024-03-24 17:39 | disposition home or self-care (01) ==
LOC: HO.MRI 17:38
PROVIDERS: PCP Internal Medicine; Visit Provider Orthopaedic Surgery
DX: M54.12 Radiculopathy, cervical region (principal)
CPT/HCPCS: 72141

== ENCOUNTER 2024-03-30 14:01 | Outpatient (AMB) | payer OTHER, SELFPAY ==
--- NOTE | 2024-03-30 14:05 | MHC.OFFVIS ---
Intake Visit Reasons: OV-MRI Cervical Spine-Review Intake Note: Nanette is a 58 year old right hand dominant female who presents today for an MRI review of her C Spine IMPRESSION: 03/24/23 Mild cervical spondylosis. Small disc protrusions at the C4-C5, C5-C6, and C6-C7 levels. No central canal stenosis. Mild bilateral foraminal narrowing with a shallow disc bulge and osseous spurring at the C7-T1 level. No cord signal abnormality. Allergies No Known Allergies [No Known Allergies*] Allergy (Verified 02/25/24 11:55) HPI HPI OV-MRI Cervical Spine-Review: Details: Nanette returns today after obtaining an MRI of her cervical spine. SHe describes ongoing mild-moderate symptoms. There have been no changes since last visit. [facility] Medical History (Updated 03/31/24 @ 09:05 by Teddy Benitez MD) Fatty liver IBS (irritable bowel syndrome) History of COVID-19 Neurofibroma of multiple sites Hypothyroid PONV (postoperative nausea and vomiting) Diabetes High cholesterol HTN (hypertension) Surgical History History of excision of mass (08/16/23) S/P right knee arthroscopy (1994) Hx of laparoscopic gastric banding (04/23/21) History of hysterectomy (11/29/06) History of colonoscopy (02/04/21) Family History Father Hx of type 2 diabetes mellitus History of high cholesterol Family history of high blood pressure Mother Hx of type 2 diabetes mellitus Family history of high blood pressure Brother High cholesterol Hypertension Brother High cholesterol Hypertension Brother Hypertension High cholesterol Sister Hypertension High cholesterol Daughter No problems noted. Daughter No problems noted. 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 Reproductive History Menstrual Age of Menarche: 11 Physical Exam Const General: cooperative, healthy appearing, no acute distress and well groomed Orientation/consciousness: oriented to person and oriented to place HEENT Head: Yes normal to inspection, Yes normocephalic and Yes atraumatic Eyes General: appearance normal, both eyes and all related structures Alignment and Position: alignment normal Conjunctivae: conjunctivae normal EOM: EOMs intact bilaterally Neck Neck: Yes normal visual inspection and Yes trachea midline Resp Other: No rerpiratory distress Effort & Inspection: normal respiratory effort and able to speak in complete sentences Cardio Other: Palpable radial pulse with no appreciable rythmic abnormalities GI Other: No abdominal distension Back/Spine/Pelvis Cervical Spine: normal cervical lordosis and cervical ROM normal Skin Other: neurofibromatosis cutaneous Neuro General: oriented to person, oriented to place and gait normal Extrem Other: Nl left shoulder exam Neg Spurling's ? Kaur ? inverted radial reflex Results Reviewed Results Reviewed: I personally reviewed the MR images. Mild cervical spondylosis. Small disc protrusions at the C4-C5, C5-C6, and C6-C7 levels. No central canal stenosis. Mild bilateral foraminal narrowing with a shallow disc bulge and osseous spurring at the C7-T1 level. No cord signal abnormality. Assessment & Plan Assessment & Plan (1) Myalgia, multiple sites: Code(s): M79.18 - Myalgia, other site Category: Medical Plan: Neurofibromatosis with right sided peripheral neuropathic symptoms that are tolerable. Cervicel spine MRI unimpressive. She will follow up if her symptoms worsens and will ocnsider a referral to pain. Coding Level of Care Code Est Pt Level 4 (48412) Diagnoses Myalgia, multiple sites M79.18
== END 2024-03-30 15:08 | disposition home or self-care (01) ==
PROVIDERS: PCP Internal Medicine; Visit Provider Orthopaedic Surgery
DX: M79.18 Myalgia, other site (principal)
CPT/HCPCS: 99212

== ENCOUNTER → 2024-03-30 14:01 | Outpatient (BNVA) | payer OTHER, SELFPAY | PROVIDERS: PCP Internal Medicine; Visit Provider Orthopaedic Surgery ==

== ENCOUNTER 2024-06-13 06:13 | Outpatient (REF) | payer OTHER, SELFPAY ==
[2024-06-13 07:41] LABS: Estimated Average Glucose 114 mg/dL; Hemoglobin A1c % 5.6 % (<6.0)
[2024-06-13 07:52] LABS: Anion Gap 13 (12-20); Blood Urea Nitrogen 13 mg/dL (9-16); Calcium 9.5 mg/dL (8.4-10.2); Carbon Dioxide 23 mmol/L (22-29); Chloride 108 mmol/L (96-108); Cholesterol 149 mg/dL (<200); Estimated Glomerular Filt Rate > 60; Glucose Random 122 mg/dL (60-115); HDL Cholesterol 55 mg/dL (>40); LDL Cholesterol Calculated 79 mg/dL (<100); Potassium 4.4 mmol/L (3.3-5.1); Sodium 140 mmol/L (135-145); Triglycerides 76 mg/dL (<150)
[2024-06-13 08:08] LABS: Thyroid Stimulating Hormone 2.26 uIU/mL (0.32-4.0)
== END 2024-06-13 06:14 | disposition home or self-care (01) ==
LOC: HO.LAB 06:13
PROVIDERS: PCP Internal Medicine; Visit Provider Physician Assistant Medical
DX: E11.9 Type 2 diabetes mellitus without complications (principal); E03.9 Hypothyroidism, unspecified; E78.5 Hyperlipidemia, unspecified
CPT/HCPCS: 36415; 80048; 80061; 83036; 84443

== ENCOUNTER → 2025-01-03 08:15 | Outpatient (BNV) | payer OTHER, SELFPAY | PROVIDERS: PCP Internal Medicine; Visit Provider Internal Medicine | DX: Z12.31 Encounter for screening mammogram for malignant neoplasm of breast (principal) | CPT/HCPCS: 77063; 77067 ==

== ENCOUNTER 2025-03-08 07:50 | Outpatient (AMB) | payer OTHER, SELFPAY ==
--- OUTSIDE RECORDS SUMMARY | 2025-03-08 07:54 | XMS_ITS | Clinical Summary ---
[facility] Organization [facility] Address [address] [place] [address] Care Team Providers Care Pharmacy Sales Representative Name Role Phone Rc Harrell MD Primary Care Provider Surgical History Surgery Date Site/Laterality Comments HYSTERECTOMY 2006 PROCEDURE: HISTORICAL HYSTERECTOMY KNEE ARTHROSCOPY 1994 Right PROCEDURE: [place] ARTHROSCOPY AID [place] SPINE&/FX KNEE W/O FIXJ; COMMENT: patella realignment COLONOSCOPY 04/15/2016 PROCEDURE: HISTORICAL COLONOSCOPY; COMMENT: Normal, Repeat 5 yrs Medical History Medical History Date Comments Diabetes ([facility]/HCC V24, CMS/[facility] V28) DX:Diabetes ([facility]) Hyperlipidemia DX:Hyperlipidemi a Hypertension 10/11/2020 DX:Hypertension Hypothyroidism 10/11/2020 DX:Hypothyroidis m Neurofibromatosis, type 1 ([facility]/HCC V24, CMS/HCC V28) 10/11/2020 DX:Neurofibromatosis, type 1 (HCC) ZA (obstructive sleep apnea) 10/11/2020 DX :ZA (obstructive sleep apnea) Severe obesity (BMI 35.0-39. 9) with comorbidity (CMS/HCC V24, CMS/HCC V28) 10/11/2020 DX:Severe obesi ty (BMI 35.0- 39.9) with comorbidity ([facility]) Eating disorder, unspecified 04/03/2021 DX: Eating disorder, unspecified Family History Medical History Relation Name Comments Pancreatic cancer Father age 6 9 Other: pulmonary embolism Mother di ed age 69 Relation Name Status Comments Father Mother Social History Tobacco Use Types Packs/Day Years Used Date Smoking Tobacco: Former Smokeless Tobacco: Never Alcohol Use Standard Drinks/Week Comments Yes 0 (1 standard drink = 0.6 oz pur e alcohol) Comments Unknown Sex and Gender Information Value Date Recorded Sex Assigned at Not on file Legal Sex Female 6:24 PM EST Gender Identity Not on file Sexual Orientation Not on file Obstetrics History Plan of Treatment Health Maintenance Due Date Last Done Comments Hepatitis B Vaccines (1 of 3 - 19+ 3-dose series) 1985 Cervical Cancer Screening: P ap Smear 1987 Pneumococcal Vaccine: 50+ Years (2 of 2 - PCV) 2016 11/29/2000 Zoster Vaccines (1 of 2) 2016 Breast Cancer Screening 01/14/2022 01/14/20, 01/09/2019 DTaP,Tdap,and Td Vaccines (2 - Td or Tdap) 08/15/2022 08/15/2012 COVID-19 Vaccine (2023-2 5 season) 2024 Influenza Vaccine (Season Ended) 2025 08/17/2019 Pneumococcal Vaccine: Pediatrics (0 to 5 Years) and At-Risk Patients (6 to 64 Years) Aged Out 11/29/2000 No longer eligible b ased on patient's age to complete this topic HIB Vaccines Aged Out No longer eligi ble based on patient's age to complete this topic HPV Vaccines Aged Out No longer eligi ble based on patient's age to complete this topic Hepatitis A Vaccines Aged Out No long er eligible based on patient's age to complete this topic IPV Vaccines Aged Out No longer eligi ble based on patient's age to complete this topic MMR Vaccines Aged Out No longer eligi ble based on patient's age to complete this topic Meningococcal ACWY Vaccine Aged Out N o longer eligible based on patient's age to complete this topic Meningococcal B Vaccine Aged Out No l onger eligible based on patient's age to complete this topic RSV Immunization Patients Under 20 months Aged Out No longer eligible b ased on patient's age to complete this topic Varicella Vaccines Aged Out No longer eligible based on patient's age to complete this topic Procedures Procedure Name Priority Date/Time Associated Diagnosis Comments [facility] SCREENING DIGITAL Routine 01/14/2020 6:36 PM EST Encounter for screening mammogram for malignant neoplasm of breast from Last 3 Months or Most Recently Relevant to Health Maintenance Results * [facility] SCREENING DIGITAL (01/14/2020 6:36 PM EST) Anatomical Region Laterality Modality Mammography 01/09/2020 9:25 AM EST Narrative 01/14/2020 6:36 PM EST [facility] Diagnostic Imaging Department [address] [place] [id number] Patient: ??ANTONY,NANETTE ?/Age/Sex: 1965 - 54 - F Unit#: ??[id number] ? Location/Status: ??SPDIMAM/REG CLI ? Mnemonic/Ordering Site: ??DIGSC/SPMAM Ordering Physician: ??RC HARRELL MD [facility] Screening Digital - 01/13/20 - 0801 History: Bilateral breast cancer screening. Technique: ??Digital mammography. Conventional CC and MLO projections with tomosynthesis MLO views and computer aided detection. Comparison: [facility] and outside mammography 01/09/2019 dating back to 03/29/2009. Findings: ?? Breast tissue consists of fatty and fibroglandular elements (category b density) bilaterally (as calculated by [employer] software). There is no suspicious group of microcalcifications, mass, architectural distortion or suspicious change in breast tissue density. Impression: No evidence of malignancy. BIRADS category 1; negative study, 3341F [id number], [id number] Note: Patient information entered into a reminder system with a target due date for the next mammogram: ??CPT II 7025F Dictating Physician: ??JONO CARLISLE MD Electronically Signed by: ??JONO CARLISLE MD Dic Date/Time: ??01/14/201835 Sign date/Time: ??01/14/201835 Procedure Note Jono Carlisle - 11/18/2022 [facility] Diagnostic Imaging Department [address] [place] [id number] Patient: NANETTE BELL /Age/Sex: 1965 - 54 - F Unit#: [id number] [facility] CLI Mnemonic/Ordering Site: [facility] Ordering Physician: RC HARRELL MD [facility] Screening Digital - 01/13/20 - 08 History: Bilateral breast cancer screening. Technique: Digital mammography. Conventional CC and MLO projectionswith tomosynthesis MLO views and computer aided detection. Comparison: [facility] and outside mammography 01/09/2019 datingback to 03/29/2009. Findings: Breast tissue consists of fatty and fibroglandular elements (category b density) bilaterally (as calculated by [employer]). There is no suspicious group of microcalcifications, mass, architectural distortion or suspicious change in breast tissue density. Impression: No evidence of malignancy. BIRADS category 1; negative study, 3341F [id number], [id number] Note: Patient information entered into a reminder system with a target duedate for the next mammogram: CPT II 7025F Dictating Physician: JONO CARLISLE MD Electronically Signed by: JONO CARLISLE MD Dic Date/Time: 01/14/201835 Sign date/Time: 01/14/201835 us Rc Harrell MD IMG BI PROCEDURES Final Res ult from Last 3 Months or Most Recently Relevant to Health Maintenance Care Teams Pharmacy Sales Representative Relationship Specialty Start Date End Date Rc Harrell MD [address] PCP - General Internal Medicine 07/30/20
--- OUTSIDE RECORDS SUMMARY | 2025-03-08 07:55 | XMS_ITS | Data Portability ---
Author Organization [facility], Main Office Address [address] [place] [address] Care Team Providers Care Tube Bender Name Role Phone JANES HARRELL Primary Care Provider [facility] Referring Pr ovider [facility] Relief Mate [phone] KIMBERLY DEAN General Surgeon KAYLIN CALL Wood Planer PEE COHEN Referring Provider [phone] KAYLIN INGRAM Referring Provider [phone] SHEYLA WANG Employment Consultant [phone] SARAH NATARAJAN Referring Provider [phone] KAYLIN HAWK Referring Provider [phone] Assessment Encounter Date Assessment Date Assessment LastModified by Organization Details LastModified Time 05/01/2024 05/01/2024 This service was provided using telemedicine. Patient consented to telephone visit Patient was located in the [facility]. Provider was located in the office. No other persons participated in the telemedicine visit except for the patient unless otherwise indicated here. {{}} Total time of visit was 25 minutes. Not available 05/01/2024 15:21:40 08/01/2024 08/01/2024 This service was provided using telemedicine. Patient consented to telephone visit Patient was located in the [facility]. Provider was located in the office. No other persons participated in the telemedicine visit except for the patient unless otherwise indicated here. {{}} Total time of visit was 26 minutes. Not available 08/01/2024 14:48:27 Plan of Treatment Reminders Order Date Submit Date Provider Last Modified By Organization Details Last Modified Time Details Appointments PE EST 2024 12:45P M Janes ybarra MD Not available Not available Not available Follow Up DM 30 2024 02:30P M Carin Isaacs PA-C Not available Not available Not available Lab hemogl obin A1C, finger stick 2024 025 [email or web address] In-Office Order, Internal Use Only DO Not Attach Compendium DO Not Attach Compendium, Do Not Delete/merge, [id number] 02/02/2025 14:41:39 hemogl obin A1C, finger stick 2023 024 In-Office Order, Internal Use Only DO Not Attach Compendium DO Not Attach Compendium, Do Not Delete/merge, [id number] 11/03/2024 15:59:10 CMP, serum or plasma [email or web address] [facility], [address] [place] [address] [place], [address], 11/03/2024 15:59:07 microa lbumin /creat inine, mass ratio, urine 2023 024 [email or web address] [facility], [facility] [place] [address] [place], [address], 11/03/2024 15:59:07 lipid panel, serum 2023 024 [email or web address] [facility], [facility] [place], [address], 11/03/2024 15:59:08 TSH, serum or plasma 2023 024 [facility], [place], [address], 11/03/2024 15:59:07 hemogl obin A1C, finger stick 2023 024 In-Office Order, Internal Use Only DO Not Attach Compendium DO Not Attach Compendium, Do Not Delete/merge, [id number] 01/26/2024 15:18:35 HbA1c (hemog lobin A1c), blood 2023 024 [facility], [address] [place] [address] [place], [address], 06/13/2024 11:14:35 Referral diabet ic ophtha lmolog y referr al 2023 024 [email or web address] Agostoolon OD, [address] [facility], [place], [address], 07/24/2024 09:26:43 Procedures None record ed. Surgeries None record ed. Imaging None record ed. Medication Orders senna 8.6 mg tablet 2023 024 [facility], [address] [place] [address], [id number], 11/03/2024 15:59:08 Mounja ro 7.5 mg/0.5 mL subcut aneous pen inject or 2023 024 [email or web address] [facility], [address] [place] [address], [id number], 12/25/2024 11:06:31 Patient TargetsNo targets recorded. Patient Instructions Encounter Date Encounter Id Patient Instructions Last Modified By Organization Details Last Modified Time 01/26/2024 [id number] type 2 diabetes: care instructions Not available 01/26/2024 15:18:33 05/01/2024 [id number] high blood pressure: care instructions Not available 05/01/2024 15:23:45 learning about high blood pressure Not available 05/01/2024 15:23:45 type 2 diabetes: care instructions Not available 05/01/2024 15:23:45 08/01/2024 [id number] type 2 diabetes: care instructions Not available 08/01/2024 15:16:13 11/03/2024 [id number] constipation: care instructions Not available 11/03/2024 15:59:08 type 2 diabetes: care instructions Not available 11/03/2024 15:59:07 high cholesterol : care instructions Not available 11/03/2024 15:59:07 hypothyroidism: care instructions Not available 11/03/2024 15:59:07 02/02/2025 [id number] high blood pressure: care instructions Not available 02/02/2025 15:10:33 learning about high blood pressure Not available 02/02/2025 15:10:33 type 2 diabetes: care instructions Not available 02/02/2025 15:10:33 Reason for Referral Diabetic Ophthalmology Refer ral for Type 2 diabetes mellitus without complication Referring Physician: Carin Isaacs, Internal Medicine, Encounter Date: 01/26/2024 Results Created Date Observation Date Name Description Value Unit Range Abnormal Flag Note LastModifiedBy Organization Detail LastModifiedTime 01/03/20 24 01/03/2024 TSH, serum or plasm a glucose 118 Not Available [facility] [place] [address], [address], 01/03/2024 11:58:13 01/03/20 24 01/03/2024 TSH, serum or plasm a BUN 13 Not Available [facility] [place], [address], 01/03/2024 11:58:13 01/03/20 24 01/03/2024 TSH, serum or plasm a creatinine 0.75 Not Available [facility] [place], [address], 01/03/2024 11:58:13 01/03/20 24 01/03/2024 TSH, serum or plasm a sodium 140 Not Available [facility] [place], [address], 01/03/2024 11:58:13 01/03/20 24 01/03/2024 TSH, serum or plasm a potassium 4.0 Not Available [facility] [place], [address], 01/03/2024 11:58:13 01/03/20 24 01/03/2024 TSH, serum or plasm a cholesterol 130 Not Available [facility] [address], [place], , 01/03/2024 11:58:13 01/03/20 24 01/03/2024 TSH, serum or plasm a triglyceride s 70 Not Available [facility] [address], [place], , 01/03/2024 11:58:13 01/03/20 24 01/03/2024 TSH, serum or plasm a HDL 55 Not Available [facility] [address] [place] [address] Dru Aquino [place], , 01/03/2024 11:58:13 01/03/20 24 01/03/2024 TSH, serum or plasm a LDL 61 Not Available [facility] [address] [place] [address] Dru Aquino [place], , 01/03/2024 11:58:13 01/03/20 24 01/03/2024 TSH, serum or plasm a TSH 2.25 Not Available [facility] [address] [place] [address] Dru Aquino [place], , 01/03/2024 11:58:13 01/03/20 24 01/03/2024 lipid panel , serum glucose 118 Not Available [facility] [address], [place], , 01/03/2024 11:58:13 01/03/20 24 01/03/2024 lipid panel , serum BUN 13 Not Available [facility] [address] [place] [address] Dru Aquino [place], , 01/03/2024 11:58:13 01/03/20 24 01/03/2024 lipid panel , serum creatinine 0.75 Not Available [facility] [address], [place], , 01/03/2024 11:58:13 01/03/20 24 01/03/2024 lipid panel , serum sodium 140 Not Available [facility] [address] [place] [address] [place], [address], 01/03/2024 11:58:13 01/03/20 24 01/03/2024 lipid panel , serum potassium 4.0 Not Available [facility] [address] [place] [address] [place], [address], 01/03/2024 11:58:13 01/03/20 24 01/03/2024 lipid panel , serum cholesterol 130 Not Available [facility] [address] [place] [address] [place], [address], 01/03/2024 11:58:13 01/03/20 24 01/03/2024 lipid panel , serum triglyceride s 70 Not Available [facility] [address] [place] [address] [place], [address], 01/03/2024 11:58:13 01/03/20 24 01/03/2024 lipid panel , serum HDL 55 Not Available [facility] [address] [place] [address] [place], [address], 01/03/2024 11:58:13 01/03/20 24 01/03/2024 lipid panel , serum LDL 61 Not Available [facility] [address] [place] [address] [place], [address], 01/03/2024 11:58:13 01/03/20 24 01/03/2024 lipid panel , serum TSH 2.25 Not Available [facility] [address] [place] [address] [place], [address], 01/03/2024 11:58:13 01/01/20 24 01/01/2024 BMP, serum or plasm a glucose 118 Not Available [facility] [address] [place] [address] [place], [address], 01/03/2024 11:12:16 02/03/01/01/2024 BMP, serum or plasm a BUN 13 Not Available [facility] [address] [place] [address] [place], [address], 01/03/2024 11:12:16 01/01/2001/01/2024 BMP, serum or plasm a creatinine 0.75 Not Available [facility] [address] [place] [address] [place], [address], 01/03/2024 11:12:16 01/01/2001/01/2024 BMP, serum or plasm a sodium 140 Not Available [facility] [address] [place] [address] [place], [address], 01/03/2024 11:12:16 01/01/2001/01/2024 BMP, serum or plasm a potassium 4.0 Not Available [facility] [address] [place] [address] [place], [address], 01/03/2024 11:12:16 01/01/2001/01/2024 BMP, serum or plasm a cholesterol 130 Not Available [facility] [address] [place] [address] [place], [address], 01/03/2024 11:12:16 01/01/2001/01/2024 BMP, serum or plasm a triglyceride s 70 Not Available [facility] [address] [place] [address] [place], [address], 01/03/2024 11:12:16 01/01/2001/01/2024 BMP, serum or plasm a HDL 55 Not Available [facility] [address] [place] [address] [place], [address], 01/03/2024 11:12:16 01/01/2001/01/2024 BMP, serum or plasm a LDL 61 Not Available [facility] [address] [place] [address] [place], [address], 01/03/2024 11:12:16 01/01/2001/01/2024 BMP, serum or plasm a TSH 2.25 Not Available [facility] [address] [place] [address] [place], [address], 01/03/2024 11:12:16 01/11/20 24 01/12/2024 URINA RY MICRO ALBUM IN micro-albumi n <12.0 mg/L (<20) The urine micro album in test is desig kesha to monit or renal funct ion. When scree risa for Bence Hoffman prote inuri a, urine elect ropho resis is recom ros d. Not Available [facility] (Centralized Electronic Ordering - All Locations) Patient Can Go To The Location Of Their Choice, 01/12/2024 02:05:40 01/11/2001/12/2024 URINA RY MICRO ALBUM IN malb/creat ratio Unable to calcul ate mg/gm (0-20) Not Available [facility] (Centralized Electronic Ordering - All Locations) Patient Can Go To The Location Of Their Choice, 01/12/2024 02:05:40 01/11/20 24 01/12/2024 URINA RY MICRO ALBUM IN urine creat for micro albumin 125.5 mg/dL Not Available [facility] (Centralized Electronic Ordering - All Locations) Patient Can Go To The Location Of Their Choice, 01/12/2024 02:05:40 01/26/2001/26/2024 hemog lobin A1C, finge rstic k A1C 6.0 % 4-6 normal Not Available In-Office Order Internal Use Only DO Not Attach Compendium DO Not Attach Compendium, Do Not Delete/merge, [id number] 01/26/2024 14:50:31 06/13/20 24 06/13/2024 BMP, serum or plasm a sodium 140 Not Available [facility] [place], [address], 08/02/2024 09:50:16 06/13/20 24 06/13/2024 BMP, serum or plasm a potassium 4.4 Not Available [facility] [place], [address], 08/02/2024 09:50:16 06/13/20 24 06/13/2024 BMP, serum or plasm a BUN 13 Not Available [facility] [place], [address], 08/02/2024 09:50:16 06/13/20 24 06/13/2024 BMP, serum or plasm a creatinine 0.76 Not Available [facility] [place], [address], 08/02/2024 09:50:16 06/13/20 24 06/13/2024 BMP, serum or plasm a glucose 122 Not Available [facility] [place], [address], 08/02/2024 09:50:16 11/03/20 24 11/03/2024 hemog lobin A1C, finge rstic k A1C 5.7 % 4-6 normal Not Available In-Office Order Internal Use Only DO Not Attach Compendium DO Not Attach Compendium, Do Not Delete/merge, [id number] 11/03/2024 13:56:26 02/03/20 25 02/02/2025 hemog lobin A1C, finge rstic k A1C 5.7 % 4-6 normal Not Available In-Office Order Internal Use Only DO Not Attach Compendium DO Not Attach Compendium, Do Not Delete/merge, [id number] 02/02/2025 12:59:15 01/22/20 24 01/01/2024 MAMMO , scree risa, bilat eral No observ ation record ed. [email or web address] [facility] (Medical Records) [address] [place], [address], 01/25/2024 10:25:11 02/05/20 24 02/03/2024 MRI, jose sylvester, w/ contr ast No observ ation record ed. [facility] [address] [place], [address], 02/17/2024 17:08:30 04/03/24/2024 MRI, cervi shaista spine , w/o contr ast No observ ation record ed. [facility] (Medical Records) [address] [facility], [place], [address], 03/29/2024 08:07:00 Result Notes None recorded. Problems Name Problem SNOMED Code Status Onset Date Resolution Date Notes Provider Name and Address Organization Details Recorded Time Acute pharyngi tis 558262654 Completed 201206/12/2014 RECORDED 01/20/20 13 11:07AM BY MARILYN KRUEGER ON/ADDEN DUM Carin Isaacs PA-C [address], [place], [address], [facility] 6 15:41:29 Anemia 082198562 Completed 201206/12/2014 RECORDED 07/25/20 13 1:20PM BY JANES STEINBERG MD, IVANATI ON/ADDEN DUM Carin Isaacs PA-C [address], [place], [address], [facility] 6 15:41:29 Screenin g for malignan t neoplasm of breast Completed 201106/12/2014 RECORDED 07/12/20 12 2:59PM BY MARILYN KRUEGER ON/ADDEN DUM Carin Isaacs PA-C [address], [place], [address], [facility] 6 15:41:29 Cough 00668370 Completed 201206/12/2014 IMPRESSI ON: THIS COULD BE FROM ALLERGIE S. SHE WILL TRY OTC LORATADI NE IF IT PERSISTS .; RECORDED 12/07/19 13 9:21AM BY CRUZ MCCLOUD MA, ANNOTATI ON/ADDEN DUM Carin Isaacs PA-C [address], [place], [address], [facility] 6 15:41:29 Influenz a vaccine needed 79508320938 06 Completed 201206/12/2014 RECORDED 11/07/20 13 10:56AM BY MARILYN KRUEGER ON/ADDEN SHAYY Isaacs PA-C [address] [facility] [address], [place], [address], [facility] 6 15:41:29 Pure hypercho lesterol emia 216448629 Completed 201307/06/2017 No on meds because level improved Janes ybarra MD [address] [facility] [address], [place], [address], [facility] 7 11:10:28 Glucose level outside referenc e range 636381623 Completed 201206/12/2014 IMPRESSI ON: DISCUSSE D LIFESTYL E CHANGES IN ORDER TO KEEP THIS UNDER CONTROL. ; RECORDED 11/07/20 13 10:56AM BY MARILYN KRUEGER ON/TERRENCE Isaacs PA-C [address] [facility] [address], [place], [address], [facility] 6 15:41:29 Essentia l hyperten royal 80616492 Active 2013 DEBORA Napier, [facility] 9 09:33:11 Hypothyr oidism 07419146 Active 2013 DEBORA Napier, [facility] 9 09:33:11 Influenz a with respirat ory manifest ation other than pneumoni a Completed 201206/12/2014 IMPRESSI ON: SHE ALSO SOUNDS LIKE SHE HAS A COMPONEN T OF POST-VIR AL COUGH/RA D WHICH WE WILL TREAT WITH THE INHALER. GIVEN THE PERSISTE NCE OF HER SX AND HER SMOKING HX WE WILL CHECK A CXR; RECORDED 07/25/20 13 9:09AM BY MARILYN KRUEGER ON/TERRENCE Isaacs PA-C [address] [facility] [address], [place], [address], [facility] 6 15:41:29 Low back pain 441411500 Completed 201306/12/2014 RECORDED 01/23/20 14 9:59AM BY TRICIA GAMINO I, ANNOTATI ON/ADDEN DUM Carin Isaacs PA-C [address], [place], [address], [facility] 6 15:41:29 Migraine 01881260 Completed 201206/12/2014 RECORDED 07/25/20 13 1:20PM BY JANES STEINBERG MD, ANNOTATI ON/ADDEN DUM Carin Isaacs PA-C [address], [place], [address], [facility] 6 15:41:29 Neurofib romatosi s type 1 14869640 Active 2013 Adilene Harris CPP null, [facility] 9 09:33:11 Tobacco user 398582150 Completed 201303/06/2015 RECORDED 01/23/20 14 10:02AM BY TRICIA GAMINO I, OFFICE VISIT Carin coUrbanize-C [address], [place], [address], [facility] 6 15:41:29 History of clinical finding in subject 533181412 Completed 201303/06/2015 RECORDED 01/23/20 14 10:02AM BY TRICIA GAMINO I, OFFICE VISIT Carin Garciaden PA-C [address], [place], [address], [facility] 6 15:41:29 Adult health examinat ion Completed 201303/06/2015 RECORDED 01/23/20 14 10:01AM BY TRICIA GAMINO I, OFFICE VISIT Carin Garciaden PA-C [address], [place], [address], [facility] 6 15:41:29 Morbid obesity 032138656 Active 2013 Adilene Harris [facility] 9 09:33:11 Anxiety state 824469305 Completed 201106/12/2014 RECORDED 09/14/20 12 11:27AM BY MARILYN KRUEGER ON/ADDEN DUM Carin Isaacs PA-C [address] [facility] [address], [place], [address], [facility] 6 15:41:29 Administ ration of diphther ia and tetanus vaccine Completed 201106/12/2014 RECORDED 09/14/20 12 11:27AM BY IVAN KRUEGERATI ON/ADDEN DUM Carin coUrbanize-C [address] [facility] [address], [place], [address], [facility] 6 15:41:29 Acute upper respirat ory infectio n 33273991 Completed 201206/12/2014 IMPRESSI ON: RAPID STREP NEGATIVE , C/W VIRAL INFECTIO N, RECOMMEN D SUPPORTI VE TREATMEN T.; RECORDED 12/23/19 13 1:30PM BY CRUZ MCCLOUD MA, IVANATI ON/ADDEN DUM Carin coUrbanize-C [address] [facility] [address], [place], [address], [facility] 6 15:41:29 Acute pharyngi tis 996543806 Completed 201207/09/2014 RECORDED 01/20/20 13 11:07AM BY MARILYN KRUEGER ON/ADDEN DUM Carin coUrbanize-C [address] [facility] [address], [place], [address], [facility] 6 15:41:29 Anemia 960237373 Completed 201207/09/2014 RECORDED 07/25/20 13 1:20PM BY JANES STEINBERG MD, ANNOTATI ON/ADDEN DUM Carin Isaacs PA-C [address], [place], [address], [facility] 6 15:41:29 Screenin g for malignan t neoplasm of breast Completed 201107/09/2014 RECORDED 07/12/20 12 2:59PM BY MARILYN KRUEGER ON/ADDEN DUM Carin Isaacs PA-C [address], [place], [address], [facility] 6 15:41:29 Cough 30474590 Completed 201207/09/2014 IMPRESSI ON: THIS COULD BE FROM ALLERGIE S. SHE WILL TRY OTC LORATADI NE IF IT PERSISTS .; RECORDED 12/07/19 13 9:21AM BY CRUZ MCCLOUD MA, MARILYN ON/ADDEN DUM Carin Isaacs PA-C [address], [place], [address], [facility] 6 15:41:29 Influenz a vaccine needed 81101235891 06 Completed 201207/09/2014 RECORDED 11/07/20 13 10:56AM BY MARILYN KRUEGER ON/ADDEN DUM Carin Isaacs PA-C [address], [place], [address], [facility] 6 15:41:29 Glucose level outside referenc e range 537530648 Completed 201207/09/2014 IMPRESSI ON: DISCUSSE D LIFESTYL E CHANGES IN ORDER TO KEEP THIS UNDER CONTROL. ; RECORDED 11/07/20 13 10:56AM BY MARILYN KRUEGER ON/ADDEN DUM Carin Isaacs PA-C [address], [place], [address], [facility] 6 15:41:29 Influenz a with respirat ory manifest ation other than pneumoni a Completed 201207/09/2014 IMPRESSI ON: SHE ALSO SOUNDS LIKE SHE HAS A COMPONEN T OF POST-VIR AL COUGH/RA D WHICH WE WILL TREAT WITH THE INHALER. GIVEN THE PERSISTE NCE OF HER SX AND HER SMOKING HX WE WILL CHECK A CXR; RECORDED 07/25/20 13 9:09AM BY MARILYN KRUEGER ON/ADDEN DUM Carin Isaacs PA-C [address], [place], [address], [facility] 6 15:41:29 Low back pain 723800914 Completed 201307/09/2014 RECORDED 01/23/20 14 9:59AM BY MARILYN KRUEGER ON/ADDEN DUM Carin Isaacs PA-C [address] [facility] [address], [place], [address], [facility] 6 15:41:29 Migraine 32466428 Completed 201207/09/2014 RECORDED 07/25/20 13 1:20PM BY JANES STEINBERG MD, MARILYN ON/ADDEN DUM Carin Isaacs PA-C [address] [facility] [address], [place], [address], [facility] 6 15:41:29 Anxiety state 141976664 Completed 201107/09/2014 RECORDED 09/14/20 12 11:27AM BY MARILYN KRUEGER ON/ADDEN DUM Carin Isaacs PA-C [address] [facility] [address], [place], [address], [facility] 6 15:41:29 Administ ration of diphther ia and tetanus vaccine Completed 201107/09/2014 RECORDED 09/14/20 12 11:27AM BY MARILYN KRUEGER ON/ADDEN DUM Carin Isaacs PA-C [address] [facility] [address], [place], [address], [facility] 6 15:41:29 Acute upper respirat ory infectio n 24174913 Completed 201207/09/2014 IMPRESSI ON: RAPID STREP NEGATIVE , C/W VIRAL INFECTIO N, RECOMMEN D SUPPORTI VE TREATMEN T.; RECORDED 12/23/19 13 1:30PM BY CRUZ MCCLOUD MA, ANNOTATI ON/ADDEN DUM Carin Isaacs PA-C [address] [facility] [address], [place], [address], [facility] 6 15:41:29 Dysuria 05907289 Completed 09/24/2020 Juany montaño MA null, [facility] 0 10:59:23 Headache 21597071 Active Adilene Harris CPPM null, [facility] 9 09:33:11 Diarrhea 80934702 Completed 09/24/2020 Juany montaño MA null, [facility] 0 10:59:31 Knee pain Active Adilene Harris CPPM null, [facility] 9 09:33:11 Hypergly cemia 38362147 Completed 02/11/2021 Removal Reason: now with diabetes Janes ybarra MD [address] [facility] [address], [place], [address], [facility] 1 20:14:16 Uncontro lled type 2 diabetes mellitus 486202317 Completed 11/13/2020 Carin Isaacs PA-C [address] [facility] [address], [place], [address], [facility] 2 15:37:42 Hyperlip idemia 12925451 Active DEBORA Napier, [facility] 9 09:33:11 Low back pain 314285876 Active Adilene Harris CPPM null, [facility] 9 09:33:11 History of total hysterec victoria [id number] Active 2006 DEBORA Napier, [facility] 9 09:33:11 Obstruct johnnie sleep apnea syndrome 72701095 Active 2017 Foloowed by sleep medicine Adilene Harris CPPM null, [facility] 9 09:33:11 Pain of left shoulder joint [id number] 210286 Active 2017 Impingem ent and tendinit is. Seen at [facility] and doing PT. MRI shows rotator cuff tear. DEBORA Napier, [facility] 9 09:33:11 Exposure to SARS-CoV -2 Completed 09/24/2020 Removal Reason: Problem added by user cain driscoll from the COVID-19 watch flag Precious Vinson [facility] [address], [place], [address], [facility] 2 14:21:51 Total hysterec victoria Completed 200602/11/2021 Removal Reason: shiloat Gaetano ybarra MD [address], [place], [address], [facility] 1 20:14:39 COVID-19 [id number] Completed 202002/11/2021 Removal Reason: Problem marked historic al by user alberto parekh from the COVID-19 watch flag Janes ybarra MD [address], [place], [address], [facility] [place] 1 20:02:03 Exposure to SARS-CoV -2 Active 2021 [facility] [address], [place], [address], [facility] 2 14:21:51 Type 2 diabetes mellitus without complica tion 207202402 Active 2021 Carin Isaacs PA-C [address], [place], [address], [facility] 2 15:36:36 Glaucoma 38148794 Active 2022 Janes ybarra MD [address], [place], [address], [facility] 3 15:33:11 Cyst of ovary 21487905 Active 2022 Followed by [facility] Negative labs. 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 Janes ybarra MD [address], [place], [address], [facility] 3 10:27:38 Lesion of scalp 54874847281 0 Active 2022 Neurofib prasanna which is getting bigger. To be removed by Dr Wang . Janes ybarra MD [address], [place], [address], [facility] 3 07:38:47 Thoracic back pain 044727882 Active 2022 Seen by pain mgmt and treated with meds and PT. Janes ybarra MD [address], [place], [address], [facility] 3 07:43:43 Cervical spondylo sis 561307445 Active 2022 C6-T1 Janes ybarra MD [address], [place], [address], [facility] 3 16:32:07 Biceps tendinit is 110729001 Active 2022 Seen at [facility] Janes ybarra MD [address] [facility] [address], [place], [address], [facility] 3 08:05:38 Body mass index 30+ - obesity 744040137 Active 2024 Alejandra Austin LPN null, [facility] 5 13:24:05 Problem Notes None recorded. Procedures Surgical History Date Name Laterality Status Provider Name and Address Organization Details Recorded Time 03/22/20 24 diabetic retinopathy screening completed Tiana Rodrigez [facility] 03/23/2024 08:18:52 01/11/20 24 Diabetic Foot Exam (Monofilament) completed Janes Harrell MD [address] [address], [place], [address], [facility] 01/11/2024 17:03:44 01/01/20 24 Most Recent Mammogram completed Tiana Rodrigez [facility] 01/25/2024 10:25:03 08/16/20 23 excision of neurofibroma completed Tiana Rodrigez [facility] 08/17/2023 13:29:36 12/23/19 23 Diabetic Foot Exam (Monofilament) completed Janes Harrell MD [address] [address], [place], [address], [facility] 12/23/2022 15:30:15 02/18/20 22 Diabetic Foot Exam (Monofilament) completed Genna Valladares MA [facility] 02/17/2022 15:39:46 12/06/19 22 Mammogram Screening completed Isabel Colon [facility] 01/09/2022 13:42:10 08/19/20 21 Diabetic Foot Exam (Monofilament) completed Melly Alvarez MA [facility] 08/19/2021 15:54:00 05/15/20 21 Diabetic Foot Exam (Monofilament) completed Claudia Box MA [facility] 05/15/2021 11:18:18 04/23/20 21 laparoscopic adjustable gastric banding completed Vanessa Lazaro [facility] 04/25/2021 14:04:57 02/12/20 21 Diabetic Foot Exam (Monofilament) completed Claudia Box MA [facility] 02/11/2021 14:52:31 02/05/20 21 Date of Last Colonoscopy completed Vanessa Lazaro [facility] 02/25/2021 15:23:59 02/05/20 21 Colonoscopy completed Vanessa Lazaro [facility] 02/25/2021 15:23:46 11/13/20 20 Diabetic Foot Exam (Monofilament) completed Janes Harrell MD [address], [address], [facility] 11/13/2020 16:46:34 07/26/20 20 Diabetic Foot Exam (Monofilament) completed Janes Harrell MD [address], [address], [facility] 07/26/2020 13:57:47 02/06/20 20 Diabetic Foot Exam (Monofilament) completed Tricia Steele [facility] 02/06/2020 15:31:16 08/07/20 19 Diabetic Foot Exam (Monofilament) completed Tricia Steele [facility] 08/07/2019 09:18:16 05/04/20 19 Diabetic Foot Exam (Monofilament) completed Tricia Steele [facility] 05/04/2019 08:46:26 01/04/20 19 Diabetic Foot Exam (Monofilament) completed Janes Harrell MD [address], [address], [facility] 01/04/2019 11:24:29 10/11/20 18 Diabetic Foot Exam (Monofilament) completed Tricia Steele [facility] 10/11/2018 15:41:55 03/16/20 17 Exc tr-ext b9+fuentes 1.1-2 cm completed Adilene Harris CPPM [facility] 03/26/2017 11:02:13 11/29/19 07 Total hysterectomy completed Juany combs MA [facility] 12/16/2017 16:34:27 11/29/18 95 Arthroscopic Surgery completed Janes Harrell MD [address], [place], [address], [facility] 06/12/2015 16:07:25 Imaging Results Imaging Date Name Status LastModified by Organiz ation Details LastModified Time 01/01/2024 MAMMO, screening, bilateral completed [id number] [facility] (Medical Records) [address] [place] [address], [id number], 01/25/2024 10:25:11 02/03/2024 MRI, shoulder, w/ contrast completed [facility] (Medical Records) [address] [place] [address], [id number], 02/17/2024 17:08:30 03/24/2024 MRI, cervical spine, w/o contrast completed [facility] (Medical Records) [address] [place] [address], [id number], 03/29/2024 08:07:00 Procedure Notes None recorded. Medical Equipment None Reported. Allergies Allergen ID Allergen Name Allergen Category Reaction Reaction Severity Criticality Documentation Date Start Date Code Code System Note Provider Name and Address Organization Details Recorded Time 3924 Product containin g angiotens in-conver ting enzyme inhibitor (product) medicatio n cough Not available Not available 06/12/20142013 84793 009 SNOMED Lisin SINDY aRmirez, [facility] 10:53:23 Medications Name Sig Start Date Stop Date Status Note LastModified by Organization Details LastModified Time Prescript ion - Prior Authoriza tion Request 10/28 completed Not Available Not Available Not Available losartan 50 mg tablet TAKE 1 TABLET BY MOUTH EVERY DAY DIRECTED 06/23 completed Not Available Not Available Not Available celecoxib 200 mg capsule TAKE 1 CAPSULE BY MOUTH 2 TIMES A DAY FOR 30 DAYS 11/03 completed as needed Not Available Not Available Not Available cyclobenz aprine 10 mg tablet TAKE 1 TABLET BY MOUTH AT BEDTIME 01/11 completed Not Available Not Available Not Available atorvasta tin 40 mg tablet TAKE ONE (1) TABLET BY MOUTH EVERY DAY 2024 active Not Available Not Available Not Avai lable metformin 500 mg tablet Take 1 tablet twice a day by oral route for 90 days. 02/05 completed Not Available Not Available Not Available cetirizin e 10 mg tablet Take 1 tablet every day by oral route for 30 days. 09/24 completed Not Available Not Available Not Available azithromy davie 250 mg tablet TAKE 2 TABLETS BY MOUTH TODAY, THEN TAKE 1 TABLET DAILY FOR 4 DAYS 12/26 completed Not Available Not Available Not Available ibuprofen 800 mg tablet 08/12 completed Not Available Not Available Not Available senna 8.6 mg tablet TAKE 2 TABLETS (17.2 MG) BY MOUTH EVERY DAY. 2024 active Not Available Not Available Not Avai lable minocycli ne 100 mg capsule 08/12 completed Not Available Not Available Not Available meloxicam 15 mg tablet TAKE 1 TABLET BY MOUTH EVERY DAY 01/11 completed as needed Not Available Not Available Not Available FreeStuart Cope 28 gauge active Not Available Not Available Not Available prednison e 20 mg tablet 01/11 completed Not Available Not Available Not Available dexametha sone 6 mg tablet TAKE 1 TABLET EVERY DAY BY ORAL ROUTE DIRECTED FOR 7 DAYS. 12/26 completed Not Available Not Available Not Available sertralin e 100 mg tablet Take 1 tablet every day by oral route. 12/31 completed Not Available Not Available Not Available sumatript an 50 mg tablet Dose: 50 mg PO x1; may repeat dose x1 after 2hrs 12/18 completed Not Available Not Available Not Available valsartan 80 mg tablet TAKE 1 TABLET(S ) EVERY DAY BY ORAL ROUTE FOR 90 DAYS. 08/12 completed Not Available Not Available Not Available Advair Diskus 100 mcg-50 mcg/dose powder for inhalatio n TWO TIMES DAILY 02/01 completed RECORDED 07/06/20 13 9:41AM BY JANES STEINBERG MD, MEDICATI ON AUTO-[place] CTIVATIO N; Not Available Not Available Not Available topiramat e 25 mg tablet TAKE 2 TABLETS BY MOUTH TWICE A DAY 05/15 completed Not Available Not Available Not Available peg-elect rolyte solution 420 gram oral solution active Not Available Not Available Not Available metoprolo l tartrate 50 mg-hydroc hlorothia zide 25 mg tablet TAKE 1 TABLET BY MOUTH DAILY 08/18 completed Not Available Not Available Not Available aspirin 81 mg tablet,de layed release Take by oral route for 30 days. 03/17 completed Not Available Not Available Not Available butalbita l-acetami nophen-ca ffeine 50 mg-325 mg-40 mg tablet Take 1 tablet every 4 hours by oral route as needed for 5 days. 05/15 completed Not Available Not Available Not Available ketorolac 0.5 % eye drops 09/24 completed Not Available Not Available Not Available meloxicam 7.5 mg tablet 04/26 completed Not Available Not Available Not Available levothyro xine 100 mcg tablet Take 1 tablet every day by oral route for 30 days. active Not Available Not Available No t Available vitamin A 3,000 mcg (10,000 unit) capsule TAKE 1 CAPSULE BY MOUTH EVERY DAY 11/03 completed Not Available Not Available Not Available lorazepam 0.5 mg tablet Take 1-2 tablets before flying 01/25 completed Not Available Not Available Not Available Mapap (acetamin ophen) 500 mg capsule 05/15 completed Not Available Not Available Not Available meclizine 25 mg tablet Take 1 tablet 3 times a day by oral route for 10 days. 10/11 completed Not Available Not Available Not Available benzonata te 100 mg capsule 3 TIMES PER DAY NEEDED FOR COUGH 02/04 completed RECORDED 07/06/20 13 9:41AM BY JANES STEINBERG MD, MEDICATI ON AUTO-[place] CTIVATIO N; Not Available Not Available Not Available levothyro xine 50 mcg tablet Take 1 tablet every day by oral route for 90 days. active Not Available Not Available No t Available econazole nitrate 1 % topical cream Apply 1 applicat ion twice a day by topical route as directed for 14 days. 01/25 completed Not Available Not Available Not Available metformin 1,000 mg tablet 1 Tablet Daily 08/12 completed Not Available Not Available Not Available levothyro xine 125 mcg tablet TAKE 1 TABLET BY MOUTH EVERY DAY 03/29 completed Not Available Not Available Not Available nystatin 100,000 unit/gram topical cream APPLY TO THE AFFECTED AREA(S) BY TOPICAL ROUTE 2 TIMES PER DAY UNTIL RESOLVED active prn Not Available Not Available No t Available levothyro xine 150 mcg tablet TAKE 1 TABLET BY MOUTH EVERY DAY 10/12 completed Not Available Not Available Not Available oxycodone 5 mg capsule 05/15 completed Not Available Not Available Not Available omeprazol e 20 mg capsule,d elayed release Take 1 capsule as needed by oral route as needed for 56 days. active Not Available Not Available No t Available lisinopri l 20 mg-hydroc hlorothia zide 25 mg tablet DAILY 10/07 completed RECORDED 10/07/20 12 8:08AM BY JANES STEINBERG MD, ANNOTATI ON/ADDEN DUM; Not Available Not Available Not Available bisacodyl 5 mg tablet,de layed release 02/11 completed Not Available Not Available Not Available hydrochlo rothiazid e 25 mg tablet DAILY 07/15 completed RECORDED 07/15/20 12 9:14AM BY JANES STEINBERG MD, ANNOTATI ON/ADDEN DUM; Not Available Not Available Not Available lorazepam 1 mg tablet TAKE 1 TABLET BY MOUTH BEFORE A PROCEDUR E active PRN Not Available Not Available No t Available Cheratuss in AC 10 mg-100 mg/5 mL oral liquid Take 10 mL every 4 hours by oral route as needed. 05/04 completed Not Available Not Available Not Available lovastati n 20 mg tablet TAKE 1 TABLET BY MOUTH EVERY DAY 11/18 completed Not Available Not Available Not Available timolol maleate 0.5 % eye drops Instill 2 drops every day by ophthalm ic route for 50 days. active 1 drop OU Not Available Not Available Not Available Naprosyn 500 mg tablet TWO TIMES DAILY, NEEDED 12/07 completed RECORDED 12/23/19 14 2:40PM BY JESSE GRAY, MEDICATI ON AUT[facility]-[place] CTIVATIO N; Not Available Not Available Not Available losartan 100 mg tablet TAKE ONE (1) TABLET BY MOUTH EVERY DAY 2024 active Not Available Not Available Not Avai lable metformin ER 500 mg tablet,ex tended release 24 hr TAKE 2 TABLETS BY MOUTH DAILY WITH FOOD active Not Available Not Available No t Available sertralin e 50 mg tablet Take 1 tablet every day by oral route. 12/31 completed Not Available Not Available Not Available levothyro xine 112 mcg tablet TAKE ONE (1) TABLET BY MOUTH EVERY DAY 2024 active Not Available Not Available Not Avai lable oxycodone 5 mg tablet TAKE 1 TABLET BY MOUTH EVERY 6 HOURS NEEDED FOR PAIN (SCALE 7-10) 09/24 completed Not Available Not Available Not Available valsartan 160 mg tablet TAKE 1 TABLET(S ) EVERY DAY BY ORAL ROUTE. 02/05 completed Not Available Not Available Not Available Bactrim DS 800 mg-160 mg tablet Take 1 tablet every 12 hours by oral route for 10 days. 01/31 completed Not Available Not Available Not Available Vitamin D3 25 mcg (1,000 unit) capsule Take 1 capsule every day by oral route. active Not Available Not Available No t Available codeine-g uaifenesi n oral syrup Q 4 HOURS PRN COUGH 12/31 completed RECORDED 01/09/20 13 12:20PM BY JESSE GRAY, MEDICATI ON AUTO-[place] CTIVATIO N;CAUTIO N DROWSINE SS Not Available Not Available Not Available cyclobenz aprine 5 mg tablet Take 1 tablet 3 times a day by oral route for 10 days. 03/16 completed Not Available Not Available Not Available metformin ER 1,000 mg tablet,ex tended release 24hr (osmotic) active Not Available Not Available No t Available Cinnamon 500 mg capsule Take 1 capsule every day by oral route. 05/15 completed Not Available Not Available Not Available metformin ER 1,000 mg tablet,ex tended release 24 hr Take 1 tablet twice a day by oral route for 90 days. 05/04 completed INS WILL PAY FOR 1000MG TABS Not Available Not Available Not Available cholecalc iferol (vitamin D3) 25 mcg (1,000 unit) tablet DAILY 01/23 completed RECORDED 01/23/20 14 10:11AM BY MARILYN KRUEGER ON/TERRENCE DUM; Not Available Not Available Not Available metformin ER 1,000 mg 24 hr tablet,ex tended release (gastric reten.) TAKE 1 TABLET BY MOUTH TWICE A DAY 11/06 completed Not Available Not Available Not Available Gavilax 17 gram/dose oral powder PLEASE SEE ATTACHED FOR DETAILED DIRECTIO NS 05/15 completed Not Available Not Available Not Available OneTouch Delica Lancets 33 gauge Take 1 each twice a day by miscell. route as directed for 90 days. 02/02 completed Not Available Not Available Not Available OneTouch Verio test strips USE TO TEST 2 TIMES A DAY 02/02 completed Not Available Not Available Not Available Linzess 145 mcg capsule Take 1 capsule every day by oral route for 30 days. active Not Available Not Available No t Available marijuana (cannabis ) buds/leav es for smoking Inhale 1 g every day by inhalati on route. 03/29 completed Not Available Not Available Not Available OneTouch Verio Flex Meter 05/15 completed Not Available Not Available Not Available Procto-Me d HC 2.5 % topical cream perineal applicato r active Not Available Not Available Not Available Ozempic 1 mg/dose (2 mg/1.5 mL) subcutane ous pen injector Inject 1 mg every week by subcutan eous route for 90 days. 12/23 completed Not Available Not Available Not Available Ozempic 0.25 mg or 0.5 mg (2 mg/1.5 mL) subcutane ous pen injector INJECT 0.25 MG WEEKLY FOR 4 WEEKS , THEN 0.5 MG WEEKLY FOR 4 WEEKS. active Not Available Not Available No t Available OneTouch Ultra Blue Test Strip 08/19 completed Not Available Not Available Not Available baclofen 5 mg tablet TAKE 1 TABLET BY MOUTH THREE TIMES A DAY 01/11 completed Not Available Not Available Not Available Flucelvax Quad (PF) 60 mcg (15 mcg x 4)/0.5 mL IM syringe 11/06 completed Not Available Not Available Not Available FreeStyle Jaspal 2 Sensor kit CHANGE EVERY 14 DAYS DIRECTED 01/14 completed Not Available Not Available Not Available Fluzone Quad (PF) 60 mcg (15 mcg x 4)/0.5 mL IM syringe PHARMACY ADMINIST ERED 09/24 completed Not Available Not Available Not Available Ozempic 1 mg/dose (4 mg/3 mL) subcutane ous pen injector 10/28 completed Not Available Not Available Not Available BinaxNOW COVID-19 Ag Self Test kit FOLLOW INSTRUCT IONS INCLUDED WITH THE PACKAGE. 02/09 completed Not Available Not Available Not Available Ozempic 2 mg/dose (8 mg/3 mL) subcutane ous pen injector INJECT 2 MG SUBCUTAN EOUSLY WEEKLY 09/24 completed Not Available Not Available Not Available Mounjaro 7.5 mg/0.5 mL subcutane ous pen injector Inject 7.5 mg every week by subcutan eous route for 28 days. 2024 active PA APPROVED THRU 12/21/19 26; will start this end january Not Available Not Available Not Available Mounjaro 5 mg/0.5 mL subcutane ous pen injector INJECT 5 MG EVERY WEEK BY SUBCUTAN EOUS ROUTE FOR 30 DAYS. active Not Available Not Available No t Available Mounjaro 2.5 mg/0.5 mL subcutane ous pen injector Inject 2.5 mg every week by subcutan eous route for 3 days. 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 DIRECTED TO MONITOR BLOOD GLUCOSE active Not Available Not Available No t Available Dexcom G7 Sensor device APPLY 1 SENSOR EVERY 10 DAYS 2024 active PA APPROVED THRU 12/19/19 26 Not Available Not Available Not Available Vitals Date Recorded Body height Body mass index (BMI) Body weight Oxygen saturation Oxygen saturation in Arterial blood by Pulse oximetry Heart rate Body temperature Systolic blood pressure Diastolic blood pressure Provider Name and Address Organization Details Last Updated DateTime 4 169.55 cm 33.4 kg/m2 39313.0 9 g 98 % 98 % 65 /min 98.3 [degF] 112 mm[Hg] 70 mm[Hg] Melly Alvarez MA [facility] 4 14:57:51 Date Recorded Body height Provider Name an d Address Organization Details Last Updated DateTime 08/01/2024 169.55 cm Alejandra Austin LPN [facility] 08/01/2024 13:58:19 Date Recorded Body height Body mass index (BMI) Body weight Heart rate Oxygen saturation Oxygen saturation in Arterial blood by Pulse oximetry Body temperature Systolic blood pressure Diastolic blood pressure Provider Name and Address Organization Details Last Updated DateTime 4 169.55 cm 32.3 kg/m2 15546.4 4 g 70 /min 98 % 98 % 98.2 [degF] 127 mm[Hg] 78 mm[Hg] Janice Ferrari MA [facility] 4 15:31:31 Date Recorded Body height Body mass index (BMI) Body weight Heart rate Oxygen saturation Oxygen saturation in Arterial blood by Pulse oximetry Body temperature Systolic blood pressure Diastolic blood pressure Provider Name and Address Organization Details Last Updated DateTime 5 169.55 cm 31.6 kg/m2 14677.4 7 g 62 /min 97 % 97 % 97.5 [degF] 138 mm[Hg] 86 mm[Hg] Juany montaño MA [facility] 5 14:35:36 Date Recorded Systolic blood pressure Diastolic blood pressure Provider Name and Address Organization Details Last Updated DateTime 02/02/2025 138 mm[Hg] 80 mm[Hg] Buzz Carmen [facility] 02/02/2025 15:06:11 Social History Question Answer Notes LastModified by Organizat ion Details LastModified Time Tobacco Smoking Status Former Smoker quit in Spring 2014 JARON Vallecillo [facility] 12/18/2020 14:04:47 Do You Have An Advance Directive? Yes HCP; Not On File [email or web address] Information not available 02/17/2022 What Is Your Level Of Alcohol Consumption? Moderate [id number] Information not available 10/01/2020 Is Blood Transfusion Acceptable In An Emergency? Yes [id number] Information not available 10/01/2020 What Is Your Level Of Caffeine Consumption? Moderate 1 Cup Of Coffee Daily [email or web address] Information not available 12/23/2022 How Much Tobacco Do You Chew? None [id number] Information not available 10/01/2020 Are You Currently Employed? Yes [id number] Information not available 10/01/2020 What Type Of Diet Are You Following? REGULAR [id number] Information not available 10/01/2020 Which Illicit Or Recreational Drugs Have You Used? Edibles (THC, CBD, Melatonin) For Sleep; Medical Marijuana Card Information not available 02/02/2025 Do You Or Have You Ever Used E-cigarettes Or Vape? 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 1-5yearssince lastcigarette Information not available 12/18/2020 Live Alone Or With Others? With Others (Rashi), Daughter [email or web address] Information not available 02/17/2022 Do You Take Precautions To Prevent Distracted Driving? Yes [email or web address] Information not available 09/09/2016 How Often Do You Need To Have Someone Help You When You Read Instructions, Pamphlets, Or Other Written Material From Your Doctor Or Pharmacy? Never [email or web address] Information not available 09/09/2016 Have You Served In The ? No [email or web address] Information not available 09/09/2016 Have You Or Anyone In Your Household Had Any Of The Following Symptoms In The Last 14 Days: Sore Throat, Cough, Chills, Body Aches For Unknown Reasons, Shortness Of Breath For Unknown Reasons, Loss Of Smell, Loss Of Taste, Fever At Or Greater Than 100 Degrees Fahrenheit? No Information not available 12/26/2020 Are You Or Anyone In Your Household A Health Care Provider Or Emergency Responder? No [email or web address] Information not available 08/19/2021 To The Best Of Your Knowledge Have You Been In Close Proximity To Any Individual Who Tested Positive For COVID-19? No Information not available 12/26/2020 Have You Recently Traveled To A COVID-19 High Risk Area Or Gathering In The Last 10 Days? No Information not available 12/18/2020 What Was The Date Of Your Most Recent Tobacco Screening? 01/11/2024 [email or web address] Information not available 01/11/2024 How Many Children Do You Have? 2 Carrie Prakash [id number] Information not available 10/01/2020 What Is Your Current Pack Years? 10packyears [email or web address] Information not available 02/17/2022 Do You Use Protection During Sex? Always [id number] Information not available 10/01/2020 Seat Belts Used Routinely Yes [email or web address] Information not available 02/17/2022 Are You Sexually Active? Yes [id number] Information not available 10/01/2020 Smoke Alarm In Home Yes [email or web address] Information not available 02/17/2022 At What Age Did You Start Smoking Tobacco? 14 Quit At 49 Information not available 12/18/2020 Are You Passively Exposed To Smoke? No [email or web address] Information not available 09/09/2016 Do You Or Have You Ever Used Smokeless Tobacco? Never Used Smokeless Tobacco [id number] Information not available 10/01/2020 Do You Use Any Illicit Or Recreational Drugs? Yes [email or web address] Information not available 02/17/2022 Do You Use Sunscreen Routinely? Yes [id number] Information not available 10/01/2020 How Many Years Have You Smoked Tobacco? 35 Information not available 12/18/2020 Do You Or Have You Ever Used Any Other Forms Of Tobacco Or Nicotine? No [email or web address] Information not available 02/17/2022 Sex: Unknown Functional Status Question Answer Note LastModified by Organizat ion Details LastModified Time Are you able to walk? YESWOREST [email or web address] Information not available 02/17/2022 Are you able to care for yourself? Yes [id number] Information not available 10/01/2020 What is your exercise level? Occasional sometimes a couple of times a week and sometimes daily [id number] Information not available 10/01/2020 Mental Status None recorded. Family History Relationship Description Onset Age of this Age Resolved Age Notes LastModified by Organization Details LastModified Time Mother Pneumonia 69 [email or web address] Not avai lable 06/08/2016 15:07:53 Mother Pulmonary embolism 69 [email or web address] Not available 10/29 16:11:23 Father Malignant tumor of pancreas 69 [email or web address] Not available 09/2016 15:07:53 Brother Hypertensive disorder [email or web address] Not available 11/30 15:15:21 Brother Hyperlipidem ia [email or web address] Not available 11/30 15:16:10 Sister Hypertensive disorder [email or web address] Not available 11/30 15:15:28 Sister Hyperlipidem ia [email or web address] Not available 11/30 15:15:59 Medical History Condition Response Obesity Y Other Y Hypertension Y Hypothyroidism Y Gynecological History Statement/Question Response Date of Last Pap Smear Date of Last Colonoscopy 02/04/2021 Most Recent Mammogram 01/01/2024 Most Recent Bone Density Obstetrics History GPAL:G 0 P 0 0 0 0 Immunizations Vaccine Type Date Status Note Provider Nam e and Address Organization Details Recorded Time Influenza, split virus, quadrivalent, preservative 6 completed DEBORA Napier, [facility] 08/21/2019 09:33:12 Influenza, split virus, trivalent, preservative 7 completed JARON Oliva, [facility] 08/04/2022 15:19:17 pneumococcal polysaccharide PPV23 1 completed JARON Oliva, [facility] 08/04/2022 15:19:17 Influenza, MDCK, quadrivalent, PF 9 completed JARON Burgos, [facility] 02/17/2022 15:40:06 Influenza, split virus, quadrivalent, preservative 0 completed Vanessa wheatley, [facility] 08/16/2020 10:56:47 COVID-19, mRNA, LNP-S, PF, 30 mcg/0.3 mL dose 1 completed JARON Burgos, [facility] 02/17/2022 15:40:06 COVID-19, mRNA, LNP-S, PF, 30 mcg/0.3 mL dose 1 completed JARON Burgos, [facility] 02/17/2022 15:40:06 Influenza, split virus, trivalent, preservative 1 completed Genna Valladares MA null, [facility] 11/18/2021 14:29:49 COVID-19, mRNA, LNP-S, PF, 30 mcg/0.3 mL dose, dean-sucrose 2 completed Janice Ferrari MA null, [facility] 05/13/2022 09:18:59 Influenza, split virus, quadrivalent, PF 1 completed Melly Alvarez MA null, [facility] 08/04/2022 15:19:17 Td (adult), 2 Lf tetanus toxoid, preservative free, adsorbed 1 completed JARON Oliva, [facility] 08/04/2022 15:19:18 Influenza, split virus, quadrivalent, PF 8 completed JARON Oliva, [facility] 08/04/2022 15:19:18 Influenza, split virus, quadrivalent, PF 2 completed Genna Valladares MA null, [facility] 09/21/2022 13:51:54 Influenza, split virus, quadrivalent, PF 3 completed Alejandra Austin LPN null, [facility] 10/28/2023 10:52:47 Influenza, split virus, trivalent, preservative 2 completed Adilene Harris CPPM null, [facility] 08/21/2019 09:33:11 Tdap 2 completed DEBORA Napier, [facility] [place] 08/21/2019 09:33:11 influenza, seasonal, intradermal, preservative free 3 completed DEBORA Napier, [facility] [place] 08/21/2019 09:33:12 Influenza, split virus, trivalent, PF 4 completed Carin Isaacs PA-C [address], [address], [facility] 11/03/2024 15:59:08 Past Encounters Encounter ID Performer Location Encounter Start Date Encounter Closed Date Diagnosis/Indication Diagnosis SNOMED-CT Code Diagnosis ICD10 Code Diagnosis Note [id number] autoEComm erce [address] [facility] [place] [address] 01/08/2012 00:00:00 [id number] autoEComm erce [address] [facility] [place] [address] 07/13/2012 00:00:00 [id number] autoEComm erce [address] [facility] [place] [address] 08/15/2012 00:00:00 [id number] autoEComm erce [address] [facility] [place] [address] 09/14/2012 00:00:00 [id number] autoEComm erce [address] [facility] [place] [address] 12/07/2012 00:00:00 [id number] autoEComm erce [address] [facility] [place] [address] 12/23/2012 00:00:00 [id number] autoEComm erce [address] [facility] [place] [address] 01/20/2013 00:00:00 [id number] autoEComm erce [address] [facility] [place] [address] 01/25/2013 00:00:00 [id number] autoEComm erce [address] [facility] [place] [address] 07/25/2013 00:00:00 [id number] autoEComm divyae [address] [facility] [place] [address] 11/07/2013 00:00:00 [id number] autoEComm erce [address] [facility] [place] [address] 01/23/2014 00:00:00 [id number] Main Office [address] [facility] [place] [address] 03/06/2015 15:43:44 03/06/2015 16:41:53 Essential hypertension [id number] we will restart her last BP med. She was given a handout and will follow her BP and call if her systolic remains>14 0. She will return for a PE and BP check. Pure hypercholesterolemia [id number] I will not restart cholestero l meds but will check her labs first Hypothyroidism 87765501 I will check labs before restarting thyroid meds. Screening for malignant neoplasm of breast 552709329 [id number] Main Office [address] [facility] [place] [address] 06/12/2015 15:21:14 06/12/2015 16:26:17 Adult health examination 038082588 Dysuria 59098358 urine d ip was normal so will wait for urine culture to come back Hypothyroidism 07669818 I will check labs before restarting thyroid meds. [id number] Cristiano jeff Main Office [address] [address] [place] [address] 08/16/2015 14:00:48 08/16/2015 15:06:58 Hypothyroidism 08771436 Headache 13164270 pt benja l use OTC meds / both tylenol and ibuprofen [id number] Janes Harrell MD Main Office [address] [address] [place] [address] 12/12/2015 10:28:05 12/12/2015 11:49:14 Essential hypertension 19700719 I10 Hypothyroidism 59277088 E03.9 we will increase her dose of thyroid meds. Diarrhea 06661043 R19.7 Knee pain 81008564 M25.5 61 [id number] Cristiano jeff Main Office [address] [address] [place] [address] 12/27/2015 09:58:20 12/27/2015 10:17:39 Hyperglycemia 40444618 R73.9 [id number] Janes Harrell MD Main Office [address] [address] [place] [address] 01/08/2016 15:22:44 01/08/2016 16:15:17 Type 2 diabetes mellitus 95325317 E11.9 new-onset; she will start meds and will continue with lifestyle changes. She will meet with Carin for counseling around diabetes and diet. [id number] Janes Harrell MD Main Office [address] [address] [place] [address] 01/21/2016 15:16:30 01/21/2016 16:32:15 Uncontrolled type 2 diabetes mellitus 304214381 E11.65 Total time spent teaching and coord. care 45 min. Basic pathophys. of Type II DM was reviewed. New glucose meter was ordered and pt. is advised to start testing BID , every day before break and rotate 2 hrpc. 1500 shaista ADA diet was reviewed and sample menus provided. Pt. is advised to walk 30 min or more daily. REcommnend ations fr diabetic foot and eye care reviewed. F/u 5-6 weeks with glucose log. Continue Metformin 500 mg BID. Body mass index 40+ - severely obese 175323269 Z68.41 [id number] Janes Harrell MD Main Office [address] [address] [place] [address] 03/04/2016 14:14:01 03/04/2016 14:58:04 Uncontrolled type 2 diabetes mellitus 792091965 E11.65 Improving diabetic control. Pt. lost 14 lbs . Metformin 500 mg will be changed to ER formulatio n at 1000 mg at supper to decrease GI intoleranc e. If tolerance improved by next visit, will try to increase to 8846-5439 mg daily. If not , will remain on same dosing and recheck A1c in 3 months. Diabetic eye exam was recommende d to schedule. Test glucose BID as discussed. Body mass index 40+ - severely obese 645593324 Z68.41 [id number] Janes Harrell MD Main Office [address] [address] [place] [address] 06/08/2016 15:00:24 06/08/2016 15:44:06 Type 2 diabetes mellitus 24260499 E11.9 Stable control,of sugars. Continue Metformin ER at 1000 mg daily. Daily walking at least 30 minutes and low shaista diet. Glucose testing once per day and rotate times of testing. Hyperlipidemia 95593040 E78.5 LOw fat diet discussed. Will retest lipids and start statin therapy. BP is stable. Morbid obesity 465431014 E66.01 [id number] Janes Harrell MD Main Office [address] [address] [place] [address] 06/16/2016 09:01:14 06/16/2016 09:55:39 Essential hypertension 88141383 I10 Pure hypercholesterolemia 402494038 E78.0 We will restart a statin given her diagnosis of diabetes. Uncontroll ed type 2 diabetes mellitus 781157175 E11.65 f/u with Carin as scheduled Hyperglycemia 28299906 R 73.9 Gynecologi c examination 58687558 Z01.419 Low back pain 542696994 M54.5 [id number] Janes Harrell MD Main Office [address] [address] [place] [address] 09/09/2016 10:34:37 09/09/2016 11:40:24 Adult health examination 565823862 Z00.00 Hyperlipidemia 82049898 E78.5 Had labs done this am Body mass index 30+ - obesity 495836242 E66.9 Neurofibro matosis type 1 16036644 Q85.01 [id number] Janes Harrell MD Main Office [address] [address] [place] [address] 03/16/2017 13:10:34 03/16/2017 14:21:06 Essential hypertension 76991440 I10 We will increase her diovan from 80 to 160 mg daily Uncontroll ed type 2 diabetes mellitus 683803019 E11.65 Check labs. She has not been followed for a while Neurofibro matosis type 1 20330503 Q85.01 s/p surgery today with many neurofibro mas removed from her chest. Body mass index 40+ - severely obese 939830914 Z68.41 E66.01 Hypothyroidism 76353183 E03.9 Check labs and adjust meds as needed. [id number] Janes Harrell MD Main Office [address] [address] [place] [address] 08/12/2017 13:24:25 08/12/2017 15:35:53 Ventral incisional hernia 066310866 K43.2 will refer to general surgery and get CT a/p for clarificat ion / assistance for surgeon [id number] Janes Harrell MD Main Office [address] [address] [place] [address] 09/13/2017 09:15:47 09/13/2017 10:32:11 Adult health examination 585161042 Z00.00 UTD with colonoscop y, mammogram and [facility] care. Type 2 bebeto betes mellitus 43936422 E11.9 Good control with current mgmt. A1C has come done from 7.9 to 6.8; has lost 20 lbs over the last year. Pain of ri ght shoulder joint 4318423002 1237826 M25.511 [id number] Janes Harrell MD Main Office [address] [address] [place] [address] 12/16/2017 16:12:36 12/16/2017 16:57:15 Uncontrolled type 2 diabetes mellitus 653710943 E11.65 This has been improving since she has been losing weight. If her A1C continues to drop we will decrease her metformin dose. Fear of flying 468478339 F40.243 She has never flown before. Hyperlipidemia 93172951 E78.5 continue meds and check fasting lipid level. Essential hypertension 53015185 I10 Good control on increased dose of valsartan. [id number] Janes Harrell MD Main Office [address] [address] [place] [address] 01/25/2018 14:26:07 01/25/2018 15:40:02 Obstructive sleep apnea syndrome 56029143 G47.33 Had a positve test in the past but never prescribed a CPAP because of insurance issues at that time. Atypical chest pain 1025 67874 R07.89 doubt cardiac etiology but will do a stress test given her risk factors and her fhx. [id number] Janes Harrell MD Main Office [address] [address] [place] [address] 03/01/2018 10:25:59 03/01/2018 11:20:40 Pain in left arm 967912021 M79.602 Bursitis of shoulder 239 967515 M75.52 [id number] Janes Harrell MD Main Office [address] [address] [place] [address] 03/17/2018 15:22:50 03/17/2018 16:11:54 Type 2 diabetes mellitus 59791701 E11.9 Good control with current mgmt. A1C has come done from 7.9 to 6.8 and now to 6.5. Hyperlipidemia 02662310 E78.5 continue meds; LDL at goal Essential hypertension 63802420 I10 Good control on increased dose of valsartan. Neurofibro matosis type 1 06693817 Q85.01 Has had surgery in the past for painful fibromas but none currently present. [id number] Janes Harrell MD Main Office [address] [address] [place] [address] 04/26/2018 14:19:56 04/26/2018 14:54:18 Hypothyroidism 06808878 E03.9 Benign par oxysmal positional vertigo 732290011 H81.10 Will try Meclizine . Pt. will call office if no improvemen t or worsening of symptoms. Recent labs were all normal including CMP and CBC. Increase hydration. Rest. Avoid driving while on Meclizine until dizziness improves. [id number] Janes Harrell MD Main Office [address] [address] [place] [address] 10/11/2018 15:29:50 10/11/2018 17:03:13 Adult health examination 331415009 Z00.00 UTD with colonoscop y (due in 2020), due for a mammogram and [facility] [employer] care. Type 2 bebeto betes mellitus 04330701 E11.9 Good control with current mgmt. A1C has come done from 7.9 to 6.8. Essential hypertension 07958048 I10 Good control on increased dose of valsartan. Needs infl uenza immunization 051775423 Z23 Anxiety 31663599 F41.9 [id number] Dina Amina nicholas Main Office [address] [facility] [address] [place] [address] 12/31/2018 10:02:38 12/31/2018 11:14:29 Cellulitis of breast 10460660 N61.0 no need for I and D, no MRSA hx of contats but will tx with bactrim to cover MRSA, any worsening over weekend to ER, hot soaks and abx ointment to encourage draining . return for f/u and needed f/u with Dr Sveta lynn, pt with DM Type 2 bebeto betes mellitus 43802318 E11.9 [id number] Janes Harrell MD Main Office [address] [facility] [address] [place] [address] 01/04/2019 10:36:34 01/04/2019 11:24:36 Type 2 diabetes mellitus 29386159 E11.9 Good control with current mgmt. A1C has increased a little to 7.2. Discussed lifestyle changes and will recheck in 4 months. Essential hypertension 91100492 I10 Good control on increased dose of valsartan. Hyperlipidemia 31643367 E78.5 continue meds; LDL at previously ; check labs. Screening for malignant neoplasm of breast 022265228 Z12.39 Cellulitis of breast 758 42468 N61.0 Responding to abx. Complete course and use warm compresses on area. [id number] Janes Harrell MD Main Office [address] [address] [place] [address] 01/31/2019 11:18:05 01/31/2019 12:08:21 Acute pharyngitis 622544724 J02.9 Fever 479652315 R50.9 Cough 92432179 R05 [id number] Janes Harrell MD Main Office [address] [facility] [address] [place] [address] 05/04/2019 08:44:11 05/04/2019 09:34:29 Type 2 diabetes mellitus 65592785 E11.9 A1C has remained above 7.0 so we will increase her metformin to 1000 bis from 500 bid. Discussed lifestyle changes and will recheck in 3 months. Hypothyroidism 93889997 E03.9 Continue current mgmt Hyperlipidemia 79291211 E78.5 continue meds and check lipids. Essential hypertension 07184998 I10 good control; continue current mgmt. Menopause present 351378 006 N95.1 [id number] Janes Harrell MD Main Office [address] [facility] [address] [place] [address] 08/07/2019 08:54:00 08/07/2019 09:53:42 Type 2 diabetes mellitus 81493942 E11.9 A1C has improved from 7.3 to 5.9. Taking a higher dose of metformin, losing weight and watching her diet. Hypothyroidism 41824123 E03.9 Continue current mgmt Hyperlipidemia 50583450 E78.5 continue meds. LDL at goal Essential hypertension 92638213 I10 good control; continue current mgmt. Neurofibro matosis type 1 82578756 Q85.01 Has had surgery in the past for painful fibromas but none currently present. [id number] Janes Harrell MD Main Office [address] [facility] [address] [place] [address] 11/06/2019 13:32:42 11/06/2019 14:34:54 Adult health examination 515872462 Z00.00 UTD with colonoscop y (due in 2020), due for a mammogram and [facility] [employer] care. Type 2 bebeto betes mellitus without complication 113642129 E11.9 Excellent A1C so will drop her metformin from 1000 bid to 500 bid Essential hypertension 79163819 I10 good control; continue current mgmt. Hypothyroidism 21287592 E03.9 Continue current mgmt [id number] Janes Harrell MD Main Office [address] [facility] [address] [place] [address] 02/06/2020 15:04:25 02/06/2020 16:08:21 Type 2 diabetes mellitus 62461951 E11.9 Currently taking metformin 500 mg twice a day. Her insurance will only allow her to have an A1C twice a year. Return in 3 months for a f/u. Hyperlipidemia 48131891 E78.5 continue meds. LDL at goal Hypothyroidism 28564511 E03.9 Continue current mgmt Essential hypertension 73599521 I10 good control; continue current mgmt. [id number] Janes Harrell MD Main Office [address] [facility] [address] [place] [place] [address] 04/11/2020 12:02:53 04/11/2020 12:36:55 [id number] Janes Harrell MD Main Office [address] [facility] [address] [place] [address] 07/26/2020 13:13:45 07/26/2020 14:14:45 Uncontrolled type 2 diabetes mellitus 520905461 E11.65 She gained back much of the weight she lost and her A1C increased but it is still very good. She will try to make some changes and she is interested in pursuing lap band. Neurofibro matosis type 1 45988957 Q85.01 Has had surgery in the past for painful fibromas but none currently present. Body mass index 30+ - obesity 591739500 E66.01 Z68.35 Essential hypertension 96502217 I10 good control; continue current mgmt. Hypothyroidism 52190293 E03.9 Continue current mgmt [id number] Kin Isaacs PA-C [employer] [address] [facility] [address] [place] [address] 09/24/2020 09:20:13 09/24/2020 13:23:37 Migraine 19928400 G43.909 [place] [facility] [place] mild help c butalbital prn, but kc pain persists - trial c uptitrate topamax as dir c prn imitrex as abortive agent, f/u c pcp in 6 wks for PE, sooner prn [id number] Janes Harrell MD Main Office [address] [facility] [address] [place] [address] 11/13/2020 15:27:10 11/13/2020 16:25:09 Adult health examination 558664511 Z00.00 UTD with colonoscop y (due in 2020). She was given a referral for a GI specialist in [place] and will make her own appointmen t. She is UTD with immunizati ons. She continues to exercise but less since the start of the pandemic. She is UTD with her mammogram and no longer sees [facility] [employer] since her hysterecto my. Screening for malignant neoplasm of colon 937663164 Z12.11 She will make her own appointmen t. Body mass index 30+ - obesity 420666862 E66.01 Z68.38 Being evaluated for gastric band which will be done by Dr Dean. Type 2 bebeto betes mellitus 53689123 E11.9 Her A1C has increased a little since last time but still acceptable . We will recheck in 3 months and if it is still going up we will adjust her meds. She is due for a diabetic eye exam. [id number] [facility] [address] [address] [place] [address] 12/18/2020 11:16:08 2020 14:20:34 COVID-19 225751495 U07.1 zpak, dexamethas one daily, rest, hydration, prone as much as possible. call/ return for worsening or concerns. continue quarantine as this is 9 days from + test and still symptomati c. Will f/u in 10 days for recheck. Diarrhea 83237818 R19.7 hydration, bland diet and advance as tolerated. [id number] Precious Vinson [facility] [address] [place] [address] 12/26/2020 08:28:16 12/26/2020 13:57:07 COVID-19 321948343 U07.1 Sx have improved, cough is gone, gets winded if doing too much. taste and smell are improving. Diarrhea 70043803 R19.7 start a probiotic once daily x 30 days, bland foods, advance as tolerated. [id number] Janes Harrell MD Main Office [address] [address] [facility] [address] 02/11/2021 14:48:53 02/11/2021 15:28:25 Type 2 diabetes mellitus 09718463 E11.9 Her A1C has remained at 7.1. We discussed continued lifestyle changes and will continue with the same meds. Essential hypertension 39210871 I10 good control; continue current mgmt. Hyperlipidemia 46504738 E78.5 continue meds. LDL at goal. Recheck lipid level. Morbid obesity 259270572 E66.01 Will be scheduled for a lap band with Dr Dean. [id number] Janes Harrell MD Main Office [address] [place] [address] 05/15/2021 11:11:31 05/15/2021 12:03:44 Type 2 diabetes mellitus 03047881 E11.9 Her A1C has come down from 7.1 to 6.5. We discussed continued lifestyle changes and will continue with the same meds. Essential hypertension 11087170 I10 good control; continue current mgmt. Neurofibro matosis type 1 45239063 Q85.01 Has had surgery in the past for painful fibromas but none currently present. Body mass index 30+ - obesity 253306428 E66.01 Z68.35 She had a gastric band placed a few weeks ago by Dr Dean but hasn't yet had her first fill. [id number] Janes Harrell MD Main Office [address] [facility] [address] [place] [address] 08/19/2021 15:18:16 08/19/2021 16:35:51 Type 2 diabetes mellitus 96960395 E11.9 Her A1C came down from 7.1 to 6.5 and now to 6.1. We discussed continued lifestyle changes and will continue with the same meds. Hyperlipidemia 34065846 E78.5 Her LDL is not at goal on lovastatin . Will d/c and start atorvastat in and recheck in 3 months. Easy bruising 224055298 R58 Essential hypertension 69594952 I10 good control; continue current mgmt. Hypothyroidism 32260716 E03.9 Continue current mgmt [id number] Janes Harrell MD Main Office [address] [facility] [address] [place] [address] 11/18/2021 14:08:34 11/18/2021 15:21:54 Adult health examination 378326948 Z00.00 UTD with colonoscop y which she had this year and is due again in 2023.. She is UTD with immunizati ons except due for a tetanus. She continues to exercise but less since the start of the pandemic. She is UTD with her mammogram and no longer sees [facility] [employer] since her hysterecto my. Essential hypertension 53307927 I10 good control; continue current mgmt. Hyperlipidemia 00591535 E78.5 Her LDL is not at goal on lovastatin . Will d/c and start atorvastat in and recheck in 3 months. Hypothyroidism 30503952 E03.9 Continue current mgmt Neurofibro matosis type 1 30761772 Q85.01 Has had surgery in the past for painful fibromas but none currently present. Type 2 bebeto betes mellitus 40467505 E11.9 Her A1C came down from 7.1 to 6.5 and 6.1 but has now increased to 7.4. We will not make any changes in her meds and she will intensify her lifestyle changes.. She is due for an eye exam and will make her own appointmen t. Insomnia 626904525 G47.0 0 Gets help from medical marijuana. Requires a tetanus booster 898064854 Z23 Hepatitis C screening 41 5088080 Z11.59 [id number] JAMES Styles Main Office [address] [facility] [address] [place] [address] 12/18/2021 10:10:10 12/18/2021 15:06:54 Exposure to SARS-CoV-2 103235235 Z20.822 Her tested + on Wednesday, she is symtpomati c, waiting on PCR test. Symptomati c treatment, hydration, rest, continue nyquil and dayquil. Continue to isolate. Call/ return for worsening sx or respirator y concerns. Suspected COVID-19 11173 4004 Z20.822 Counseling [id number] Z71 .9 Health advice, education or counseling done for COVID 19 [id number] Janes Harrell MD Main Office [address] [address] 02/17/2022 15:28:08 02/17/2022 16:22:48 Type 2 diabetes mellitus [id number] E11.9 Her A1C continues to increase despite making efforts. She will make an appointmen t to discuss mgmt with diabetes. She is also interested in getting a CGM. Essential hypertension 88115978 I10 good control; continue current mgmt. Easy bruising [id number] R58 No clear etiology. She will keep an eye on this and let us know if it worsens. [id number] Carin Isaacs PA-C Main Office [address] [address] 05/13/2022 09:14:19 05/13/2022 10:35:35 Uncontrolled type 2 diabetes mellitus 177155860 E11.65 Continue metformin. Begin Ozempic at 0.25 mg weekly for 2-4 weeks, then 0,5 mg weekly. F/u 6 weeks. possible side effects reviewed. Injection instructio ns provided. Repeat CMP and microalbum in. Pt. also requested CGM. [id number] Carin Isaacs PA-C Main Office [address] [address] [place] [address] 08/04/2022 15:07:56 08/04/2022 16:08:29 Type 2 diabetes mellitus without complication 404017478 E11.9 Excellent diabetic control with 20 lb weight loss due to change in diet and activity level. WE will retry Ozempic at smallest dose of 0.25 mg weekly and only if that dose is completely tolerable , she will go to 0.5 mg in 4 weeks. metformin ER will be lowered to 500 mg 2 daily with food to avoid GI upset. F/u 3 m or sooner [id number] Carin Isaacs PA-C [facility] [address] [place] [address] 09/21/2022 12:40:01 09/21/2022 15:55:01 Type 2 diabetes mellitus without complication 532302212 E11.9 Excellent diabetic control with 31 lb total weight loss due to change in diet and activity level. and the addition of GLP-1. We will increase Ozempic to 1 mg weekly and only if that dose is completely tolerable , she will go to 0.5 mg in 4 weeks. metformin ER will be lowered to 500 mg 1 daily with food to avoid GI upset. F/u 3 m or sooner . Pt. was advised to make april for diabetic eye exam and have fasting labs before the end of the year. Hyperlipidemia 58053000 E78.5 Low fat diet discussed. Will retest lipids and start statin therapy. BP is stable. Hypothyroidism 92832696 E03.9 [id number] Kin Isaacs PA-C [facility] [address] [place] [address] 12/01/2022 14:42:07 12/02/2022 07:57:52 Candidiasis of skin 68084186 B37.2 [id number] Janes Harrell MD Main Office [address] [place] [address] 12/23/2022 14:07:32 12/23/2022 15:36:31 Adult health examination 950112499 Z00.00 UTD with colonoscop y which she had in 2020 and is due again in 2023.. She is UTD with immunizati ons including COVID, flu, tetanus and pneumonia and is due for a shingles vaccine. She is UTD with her mammogram and no longer sees [facility] since her hysterecto my. She continues to exercise, sometimes daily. Essential hypertension 08403516 I10 Running a little high today so she will follow and call if it continues to run high Hyperlipidemia 55779201 E78.5 She has been taking atorvastat in and tolerating this well. We will check her fasting lipid level. Hypothyroidism 54352901 E03.9 Continue current mgmt Neurofibro matosis type 1 80969042 Q85.01 Has had surgery in the past for painful fibromas but none currently present. Will refer her to a new neurologis t in [place] since her former neurologis t (Dr Tejada ) retired. Type 2 bebeto betes mellitus without complication 811676289 E11.9 Excellent A1C. Continue metformin 500 mg and ozempic and f/u as scheduled with Carin. Glaucoma 09642426 H40.9 New dx. She has an upcoming appointmen t with a specialist . Body mass index 30+ - obesity 064065530 E66.01 She had a gastric band placed a couple of years ago by Dr Dean. She has lost more than 70 lbs since then. [id number] Carin Isaacs PA-C Main Office [address] [facility] [address] [place] [address] 02/09/2023 12:52:08 02/09/2023 15:53:27 Type 2 diabetes mellitus without complication 917441431 E11.9 Excellent diabetic control with 46 lb total weight loss due to change in diet and activity level. and the addition of GLP-1. Continue Ozempic 1 mg weekly , metformin down to 500 mg daily. F/u 3-4 m. Hypothyroidism 37014592 E03.9 TSH is just under norm due to weight loss. we will reduce levothyrox ine further from 125 to 112 mcg daily and repeat test after next visit. [id number] Joanie Beth Main Office [address] [facility] [address] [place] [address] 03/29/2023 09:51:03 03/29/2023 11:11:06 Right lower quadrant pain 896681132 R10.31 So far reassuring findings with neg CT,. labs and exam today. Will do ultrasound to assess ovary on the right. Pt will make a ob gyn appt if sx persist. GI evaluation recommende d, referral made. Pt to rest, otc pain med if needed, bland diet, call or ED for acutely worsenig sx. 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 [id number] Janes Harrell MD Main Office [address] [facility] [address] [place] [address] 06/22/2023 14:32:44 06/22/2023 15:29:30 Essential hypertension 91453012 I10 Running a little high today so she will follow and call if it continues to run high Lesion of scalp 21642388 91 00 L98.9 Possible neurofibro ma. Has had multiple surgeries in the past. Neurofibro matosis type 1 38763292 Q85.01 Has had surgery in the past for painful fibromas but none currently present. Seen by Dr Ingram for glaucoma suspect and he recommende d a brain MRI [id number] Carin Isaacs PA-C Main Office [address] [facility] [address] [facility] [address] 06/23/2023 13:44:07 06/23/2023 14:44:04 Type 2 diabetes mellitus without complication 558377622 E11.9 Excellent diabetic control with 46 lb total weight loss due to change in diet and activity level. and the addition of GLP-1. Continue Ozempic 1 mg weekly , metformin down to 500 mg daily. F/u 3-4 m. Essential hypertension 37271433 I10 BP is still above target on losartan 50 mg. WE will increase to 100 mg daily and continue low sodium diet and weight loss. Test blood pressure at home weekly. F/u 6-8weeks. Hyperlipidemia 44900341 E78.5 Low fat diet discussed. Will retest lipids and start statin therapy. BP is stable. [id number] Carin Isaacs PA-C Main Office [address] [facility] [place] [address] [place] [address] 09/24/2023 14:08:56 09/24/2023 15:25:45 Type 2 diabetes mellitus without complication 557132546 E11.9 Excellent diabetic control but Ozempic is not available in the pharmacies due to being on back order. PT. originally lost 46 lbs , but regained over 20 lb already , 7 since just May. Recom to increase activity and lower calories. WE will switch to Mounjaro at 2.5 mg weekly for 4 weeks, then 5 mg weekly. F/u 3 m Essential hypertension 86200990 I10 stable HTN, continue current meds and low sodium diet. Hyperlipidemia 63152569 E78.5 continue low fat diet and repeat lipids in January of 2024. Hypothyroidism 31317589 E03.9 Repeat TSH. Continue current meds. [id number] GAYE HARTMAN MD Main Office [address] [address] [place] [address] 10/28/2023 10:33:32 10/28/2023 11:17:55 Low back pain 261070191 M54.50 -reports and chronic back pain >35 years.-has not seen a specialist for her back pain-was seen at 10/19 and 10/25- given toradol injections twice and discharged with meloxicam and cyclobenza juventino-pt is looking for imaging, PT, and referrals Thoracic back pain 08950 8004 M54.6 -the toradol injections provided some relief temporaril y, cyclobenza juventino and meloxicam provides relief at night-pt is interested in seeking pain management for her chronic back pain-no trauma to area Pain of le ft shoulder joint [id number] 2603824 M25.512 -reports a hx of adhesive capsulitis of left shoulder >7 years ago-was seeing an orthopedic surgeon at the time, surgery was suggested- pt is interested in a referral for ortho to discuss her options [id number] Janes Harrell MD Main Office [address] [facility] [address] [place] [address] 01/11/2024 15:21:51 01/11/2024 16:34:28 Adult health examination 585317182 Z00.00 UTD with colonoscop y which she had in 2020 and is due again in 2025. Last colonoscop y was done in [place]. She is UTD with immunizati ons including COVID, flu, tetanus and pneumonia and is due for a shingles vaccine. She is also due for a COVID booster but has no plans to get this. She is UTD with her mammogram and no longer sees [facility] since her hysterecto my. She continues to exercise, sometimes daily. Type 2 bebeto betes mellitus without complication 249538792 E11.9 Excellent A1C. Continue metformin 500 mg and moujaro and f/u as scheduled with Carin. Essential hypertension 93065963 I10 Running a little high today so she will follow and call if it continues to run high. She thinks that it is elevated because of her current pain. Hyperlipidemia 75259213 E78.5 She has been taking atorvastat in and tolerating this well. Her LDL is at goal. Low back pain 348031952 M54.50 Also neck and shoulder pain; followed by [facility]. Morbid obesity 543891563 E66.01 She is down 60 lbs since her high of 267. Obstructiv e sleep apnea syndrome 76537638 G47.33 Had a positive test in the past but never prescribed a CPAP because of insurance issues at that time. [id number] Carin Isaacs PA-C Main Office [address] [place] [address] 01/26/2024 14:42:38 01/26/2024 15:23:42 Type 2 diabetes mellitus without complication 453439205 E11.9 Continue Mounjaro 5 mg weekly. Pt. was encouraged to lower calories and return to more regular exercise activity. If weight continues increasing , consider adjusting mounjaro dose up. F/u 3 m. [id number] Carin Isaacs PA-C [facility] [address] [facility] [address] [facility] [place] [address] 05/01/2024 14:35:42 05/01/2024 15:28:26 Type 2 diabetes mellitus without complication 652917329 E11.9 Stable diabetic control on Mounjaro 5 mg weekly. Continue exercise and diet. Repeat A1c. F/u 3 m. Essential hypertension 95100281 I10 stable HTN, continue current meds and low sodium diet. [id number] Carin Isaacs PA-C Main Office [address] [address] [place] [address] 08/01/2024 13:39:49 08/01/2024 15:18:38 Type 2 diabetes mellitus without complication 808564437 E11.9 Stable diabetic control on Mounjaro 5 mg weekly. Pt. is not having as much appetite control on this medication at small dose. Recom to try 7.6 mg dose for 3 months after she is done with current script. F/u 3 m. [id number] Carin Isaacs PA-C Main Office [address] [address] [place] [address] 11/03/2024 15:09:22 11/03/2024 15:56:47 Type 2 diabetes mellitus without complication 576066552 E11.9 Stable diabetic control on Mounjaro 7.5 mg weekly. Not having as good of a result in weight management at this dose, but also has constipati on. recommend to add Miralax powder 17 gm daily and take senna , increase fluids. F/u 3 m. Hypothyroidism 15011777 E03.9 Repeat TSH. Continue current meds. Hyperlipidemia 76211420 E78.5 continue low fat diet and repeat lipids in January of 2024. Needs infl uenza immunization 738582802 Z23 19 YEARS AND OLDER ONLY Constipation 99692554 K5 9.00 [id number] Carin Isaacs PA-C Main Office [address] [address] [place] [address] 02/02/2025 14:13:21 02/02/2025 15:12:37 Type 2 diabetes mellitus without complication 063359539 E11.9 Stable diabetic control on Mounjaro 7.5 mg weekly. Not having as good of a result in weight management at this dose, but also has constipati on. Advised to continue with Miralax powder 17 gm and Senna daily, increase fluid intake. F/u 3 m. Essential hypertension 52874461 I10 stable HTN, continue current meds and low sodium diet. BP slightly elevated in office today, will have pt take home reading and bring to office for f/u. advised to continue with DASH diet and continue current meds. Health Concerns Section Related Observation LastModified by Organization Detai ls LastModified Time None Recorded Concern Status LastModified by Organization Details LastModified Time None Recorded Advance Directives Directive Y: HCP; not on file Payers Encounter Date Sequence Insurance Name Policy Number Policy Barger Covered Member ID Barger Member ID Guarantor Name 01/26/2024 1 [employer] [place] [id number] Nanette Acacia Antony [id number] Nanette H Antony 05/01/2024 1 [employer] [place] [id number] Nanette H [place] [id number] Nanette H [place] 08/01/2024 1 [employer] [place] [id number] Nanette OndaVia [id number] 35 Nanette H [place] 11/03/2024 1 [employer] [place] [id number] Nanette OndaVia [id number] 35 Nanette H [place] 02/02/2025 1 [employer] [place] [id number] NanetteSoxiable [id number] 35 Nanette H [place] Notes Date Note Type Note Provider Name and Address Organization Details Recorded Time 01/26/2024 text/html Diabetes F/URepo rted bypatient.Review finger sticks:fasting: ; post breakfast: ; post lunch: ; post dinner: Context:normal range of home blood sugars (in the low 100s); seeing eye doctor regularly; checking feet regularly; not missing doses of medications; no side effects from medications;not taking aspirin daily Associated Symptoms:no dizziness; no sweats; no headaches; no confusion; no increased thirst; no increased appetite; no increased urination; no blurred vision; no numbness of feet; no calluses on feet;weight gain (4 lbs)Notes:HgA1c today is 6%Overall diabetic control is very stable. No complications. Meds: Ozempic 2 mg not abl to obtain in the pharmacy for the past at least 3 months consistently. Used lower dose 1 mg intermittently. [place] over 20 lbs since this shortage began.Weight is up 7 lbs since May.Diet --- low calories/low carb.Exerices 3-4 times weekly.Hypertension F/UReported bypatient.Associated Symptoms:no dizziness; no lightheadedness; no chest pain; no shortness of breath; no palpitations; no edema; no calf pain with exertion Lifestyle:limiting/cherie iding salt;not exercising regularly Medications:taking medications as directed; no side effects from medicationNotes:stable HTN on meds. Carin Isaacs PA-C [address], [address], [facility] 01/26/2024 16:49:29 05/01/2024 text/html Diabetes F/URepo rted bypatient.Review finger sticks:fasting: ; post breakfast: ; post lunch: ; post dinner: Context:normal range of home blood sugars (in the low 100s); seeing eye doctor regularly; checking feet regularly; not missing doses of medications; no side effects from medications;not taking aspirin daily Associated Symptoms:no dizziness; no sweats; no headaches; no confusion; no increased thirst; no increased appetite; no increased urination; no blurred vision; no numbness of feet; no calluses on feet;weight gain (4 lbs)Notes:HgA1c was 6% on 01/26/24.Overall diabetic control is very stable. No complications. Meds: Mounjaro 5 mg weekly .Pt. reports additional 5 lb weight loss since last seen.continues with diet and exercise. REports more weight loss results previously with Ozempic than currently.Diet --- low calories/low carb.Exerices 3-4 times weekly. Carin Isaacs PA-C [address], [phone], [facility] 05/01/2024 15:24:04 08/01/2024 text/html Diabetes F/URepo rted bypatient.Review finger sticks:fasting: ; post breakfast: ; post lunch: ; post dinner: Context:normal range of home blood sugars (in the low 100s); seeing eye doctor regularly; checking feet regularly; not missing doses of medications; no side effects from medications;not taking aspirin daily Associated Symptoms:no dizziness; no sweats; no headaches; no confusion; no increased thirst; no increased appetite; no increased urination; no blurred vision; no numbness of feet; no calluses on feet;weight gain (4 lbs)Notes:HgA1c was 5.6% on 06/10/24. Lipids , TSH were stable.Overall diabetic control is very stable. No complications. Meds: Mounjaro 5 mg weekly.continues with diet and exercise, but is unable to lose as much weight as with Ozempic in the past. Up to 217 and down to 200, in that range nowExerices 3-4 times weekly.No diabetic complications. Carin Isaacs PA-C [address] [address], [place], [address], [facility] [place] 08/01/2024 15:16:57 11/03/2024 text/html Diabetes F/URepo rted bypatient.Review finger sticks:fasting: ; post breakfast: ; post lunch: ; post dinner: Context:normal range of home blood sugars (in the low 100s); seeing eye doctor regularly; checking feet regularly; not missing doses of medications;not taking aspirin daily;side effects from medications; constipation. Pt. moves her bowels once per week. Take senna 2 tablets daily. Associated Symptoms:no dizziness; no sweats; no headaches; no confusion; no increased thirst; no increased appetite; no increased urination; no blurred vision; no numbness of feet; no calluses on feet;weight gain (19 lbs);weight loss ( lbs); gained 19 lbs since the switch to mounjaro. Lowest weight was 186, now 205. Highest weight was 217.Notes:HgA1c is 5.7% today. Meds: mounjaro 7.5 mg weekly.continues with diet and exerciseExerices 3-4 times weekly.No diabetic complications. Carin Isaacs PA-C [address] [address], [place], [address], [facility] [place] 11/03/2024 15:59:44 02/02/2025 text/html Diabetes F/URepo rted bypatient.Review finger sticks:fasting: ; post breakfast: ; post lunch: ; post dinner: Context:normal range of home blood sugars (in the low 100s); seeing eye doctor regularly; checking feet regularly; not missing doses of medications;not taking aspirin daily;side effects from medications; constipation. Pt. moves her bowels once per week. Take senna 2 tablets daily. Eye exam last in Nov 2023, again in March 2025. Does not see foot doctor. Associated Symptoms:no dizziness; no sweats; no headaches; no confusion; no increased thirst; no increased appetite; no increased urination; no blurred vision; no numbness of feet; no calluses on feet;weight gain (19 lbs);weight loss ( lbs); gained 19 lbs since the switch to mounjaro. Lowest weight was 186, now 205. Highest weight was 217.Notes:HgA1c is 5.7% today.Meds: mounjaro 5 mg, will be stating on 7.5 mg soon.Takes Senna and miralax for constipation, 1 scoop of miralax and 1 senna before bed, passing BM about every other day. Notes increase in appetite toward the end of week before next dose. Not regularly exercising over the winter, gets out for walks when the weather is better. Reports adequate daily hydration. No diabetic complications, annual eye exam is coming up in 04/22.Hypertension F/UReported bypatient.Associated Symptoms:no dizziness; no lightheadedness; no chest pain; no shortness of breath; no palpitations; no edema; no calf pain with exertion Lifestyle:regular exercise; limiting/avoiding salt; Diet - lots of protein shakes, and low carbs Exercise - walks during breaks -, but not during the winter Medications:taking medications as directed; no side effects from medicationNotes:Stable HTN on losartan 100 mg. Carin Isaacs PA-C [address] [address], [place], [address], [facility] 02/02/2025 15:15:32 OBGyn Episode No OBEpisode recorded.
[2025-03-08 08:15] VITALS: BP 130/82; PULSE 84; TEMP 36.7; O2SAT 99; BMI 31.0
--- NOTE | 2025-03-08 08:15 | AM.OFFWIN_ITS ---
Intake Vital Signs 03/08/25 08:15 Height 5 ft 7 in Weight 198 lb BMI 31.0 BP 130/82 Blood Pressure Location Rt brachial Position Sitting Pulse 84 Pulse Source Pulse Oximeter Temp 98.1 F Temp Source Oral Pulse Oximetry (%) 99 Intake Visit Reasons: EP Sore throat, stomach, ears, congestion Patient Tobacco Use Status: Former Tobacco user Allergies No Known Allergies [No Known Allergies*] Allergy (Verified 03/08/25 08:16) Do you need a note to return to daycare/school/sports/work: No HPI HPI Comments History of Present Illness Details 59 y/o female patient who presents to [facility] walk in clinic with c/o URI symptoms since Wednesday. Pt c/o Sore-throat, B/L ear pains and chest congestion. She has been using OTC remedies with minimal relief. [facility] Medical History (Updated 03/08/25 @ 08:18 by Alexandra Marsh NP) Acute respiratory disease Fatty liver IBS (irritable bowel syndrome) History of COVID-19 Neurofibroma of multiple sites Hypothyroid PONV (postoperative nausea and vomiting) Diabetes High cholesterol HTN (hypertension) Surgical History History of excision of mass (08/16/23) S/P right knee arthroscopy (1994) Hx of laparoscopic gastric banding (04/23/21) History of hysterectomy (11/29/06) History of colonoscopy (02/04/21) Family History Father Hx of type 2 diabetes mellitus History of high cholesterol Family history of high blood pressure Mother Hx of type 2 diabetes mellitus Family history of high blood pressure Brother High cholesterol Hypertension Brother High cholesterol Hypertension Brother Hypertension High cholesterol Sister Hypertension High cholesterol Daughter No problems noted. Daughter No problems noted. 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 Female Reproductive History Menstrual Age of Menarche: 11 Review of Systems Const All systems reviewed & are unremarkable except as noted in HPI and below Physical Exam Vital Signs: Last Vital Signs Temp 98.1 F 03/08/25 08:15 Pulse 84 03/08/25 08:15 BP 130/82 03/08/25 08:15 Pulse Ox 99 03/08/25 08:15 BMI result Body Mass Index 31.0 Const General: no acute distress Nutritional Appearance: overweight Orientation/consciousness: patient oriented x3 HEENT Head: Yes normocephalic Ears: external ears normal and TM abnormal obstructed by cerumen General nose exam: Normal external nose present Face and sinus: Yes sinuses nontender Mouth: moist mucous membranes and Abnormal oral and palatal mucosa present erythematous; no white patches and no vesicles Throat: Yes posterior oropharynx normal Resp Effort & Inspection: normal respiratory effort and able to speak in complete sentences Auscultation: clear to auscultation bilaterally, no crackles, no rales, no rhonchi and no wheezes Cardio Rate: regular rate Heart sounds: S1 normal heart sound present and S2 normal heart sound present Neuro General: patient oriented x3 Assessment & Plan Assessment & Plan (1) Acute respiratory disease: Code(s): J06.9 - Acute upper respiratory infection, unspecified Plan: Rest and Hydrate well with warm fluids Acetaminophen for pain relief. Rapid strep Negative OTC sore-throat remedies. Ordered SARs. Orders: Orders SARS-CoV2/FLU/RSV Today J06.9 - Acute upper respiratory infection, unspecified Coding Level of Care Code Est Pt Level 4 (01254) Diagnoses Acute respiratory disease J06.9 Time Spent (min) 20
== END 2025-03-08 08:27 | disposition home or self-care (01) ==
PROVIDERS: PCP Internal Medicine; Visit Provider Nurse Practitioner Family
DX: J06.9 Acute upper respiratory infection, unspecified (principal); Z13.9 Encounter for screening, unspecified

== ENCOUNTER 2025-03-08 07:50 | Outpatient (REF) | payer OTHER, SELFPAY ==
--- OUTSIDE RECORDS SUMMARY | 2025-03-08 08:36 | XMS_ITS | Clinical Summary ---
Author Organization [facility] Address [address] [place] [address] Care Team Providers Care Digital Advisor Name Role Phone Rc Harrell MD Primary Care Provider Surgical History Surgery Date Site/Laterality Comments HYSTERECTOMY 2006 PROCEDURE: HISTORICAL HYSTERECTOMY KNEE ARTHROSCOPY 1994 Right PROCEDURE: OR ARTHROSCOPY AID TX SPINE&/FX KNEE W/O FIXJ; COMMENT: patella realignment COLONOSCOPY 04/15/2016 PROCEDURE: HISTORICAL COLONOSCOPY; COMMENT: Normal, Repeat 5 yrs Medical History Medical History Date Comments Diabetes ([facility]/HCC V24, CMS/[facility] V28) DX:Diabetes ([facility]) Hyperlipidemia DX:Hyperlipidemi a Hypertension 10/11/2020 DX:Hypertension Hypothyroidism 10/11/2020 DX:Hypothyroidis m Neurofibromatosis, type 1 ([facility]/HCC V24, CMS/HCC V28) 10/11/2020 DX:Neurofibromatosis, type 1 (HCC) ZA (obstructive sleep apnea) 10/11/2020 DX :ZA (obstructive sleep apnea) Severe obesity (BMI 35.0-39. 9) with comorbidity (CMS/HCC V24, CMS/HCC V28) 10/11/2020 DX:Severe obesi ty (BMI 35.0- 39.9) with comorbidity ([facility]) Eating disorder, unspecified 04/03/2021 DX: [...] Procedure Name Priority Date/Time Associated Diagnosis Comments [facility] SCREENING DIGITAL Routine 01/14/2020 6:36 PM EST Encounter for screening mammogram for malignant neoplasm of breast from Last 3 Months or Most Recently Relevant to Health Maintenance Results * THOMAS SCREENING DIGITAL (01/14/2020 6:36 PM EST) Anatomical Region Laterality Modality Mammography 01/09/2020 9:25 AM EST Narrative 01/14/2020 6:36 PM EST [facility] Diagnostic Imaging Department [address] [place] [id number] Patient: ??ANTONY,NANETTE ?/Age/Sex: 1965 - 54 - F Unit#: ??[id number] ? Location/Status: ??SPDIMAM/REG CLI ? Mnemonic/Ordering Site: ??DIGSC/SPMAM Ordering Physician: ??RC HARRELL MD [facility] Screening Digital - 01/13/20 - 0801 History: Bilateral breast cancer screening. Technique: ??Digital mammography. Conventional CC and MLO projections with tomosynthesis MLO views and computer aided detection. Comparison: [facility] and outside mammography 01/09/2019 dating back to 03/29/2009. Findings: ?? Breast tissue consists of fatty and fibroglandular elements (category b density) bilaterally (as calculated by [employer] software). There is no suspicious group of microcalcifications, mass, architectural distortion or suspicious change in breast tissue density. Impression: No evidence of malignancy. BIRADS category 1; negative study, 3341F 31685, [id number] Note: Patient information entered into a reminder system with a target due date for the next mammogram: ??CPT II 7025F Dictating Physician: ??JONO CARLISLE MD Electronically Signed by: ??JONO CARLISLE MD Dic Date/Time: ??01/14/201835 Sign date/Time: ??01/14/201835 Procedure Note Jono Carlisle - 11/18/2022 [facility] Diagnostic Imaging Department [address] [place] [address] Patient: NANETTE BELL /Age/Sex: 1965 - 54 - F Unit#: [id number] [facility] CLI Mnemonic/Ordering Site: [facility] Ordering Physician: RC HARRELL MD [facility] Screening Digital - 01/13/20 - 08 History: Bilateral breast cancer screening. Technique: Digital mammography. Conventional CC and MLO projectionswith tomosynthesis MLO views and computer aided detection. Comparison: [facility] and outside mammography 01/09/2019 datingback to 03/29/2009. Findings: Breast tissue consists of fatty and fibroglandular elements (category b density) bilaterally (as calculated by [employer]). There is no suspicious group of microcalcifications, mass, architectural distortion or suspicious change in breast tissue density. Impression: No evidence of malignancy. BIRADS category 1; negative study, 3341F 27590, [id number] Note: Patient information entered into a reminder system with a target duedate for the next mammogram: CPT II 7025F Dictating Physician: JONO CARLISLE MD Electronically Signed by: JONO CARLISLE MD Dic Date/Time: 01/14/201835 Sign date/Time: 01/14/201835 us Rc Harrell MD IMG BI PROCEDURES Final Res ult from Last 3 Months or Most Recently Relevant to Health Maintenance Care Teams Digital Advisor Relationship Specialty Start Date End Date Rc Harrell MD [address] PCP - General Internal Medicine 07/30/20
[2025-03-08 11:35] LABS: Influenza A PCR NEGATIVE (Negative); Influenza B PCR NEGATIVE (Negative); Resp Syncy Virus RNA Qual PCR NEGATIVE (Negative); SARS COV2 PCR INHOUSE NEGATIVE (Negative)
== END 2025-03-08 07:51 | disposition home or self-care (01) ==
LOC: HO.LAB 07:50
PROVIDERS: Nurse Practitioner Family; PCP Internal Medicine
DX: J06.9 Acute upper respiratory infection, unspecified (principal)
CPT/HCPCS: 0241U; 87880

== ENCOUNTER 2025-03-11 02:35 | Emergency (ER) | payer OTHER, SELFPAY ==
[2025-03-11 02:39] VITALS: BP 133/85; PULSE 98; RESP 16; TEMP 37.3; O2SAT 98; BMI 30.3
[2025-03-11 03:07] LABS: IDNOW Serial# 55D5AD1C; Strep A Nucleic Acid Positive (Negative)
--- NOTE | 2025-03-11 03:08 | ED.EAR ---
HPI - Ear Problem General Chief complaint: Ear Problems Stated complaint: right ear pain Time Seen by Provider: 03/11/25 03:08 Source: patient Mode of arrival: ambulatory Limitations: no limitations History of Present Illness ED Provider: HPI Narrative: Patient otherwise healthy complaining of sore throat earache congestion for last 1 week other family member also sick with nasal congestion. For last few days patient noticed blood-tinged discharge from the right ear with increased pain Related Data Home Medications ?Medication ?Instructions ?Recorded ?Confirmed cholecalciferol (vitamin D3) 25 25 mcg PO DAILY 11/08/20 12/28/24 mcg (1,000 unit) capsule lovastatin 20 mg tablet 20 mg PO DAILY 11/08/20 12/28/24 blood sugar diagnostic #10 ea 04/07/21 10/25/23 blood-glucose meter #1 ea 04/07/21 10/25/23 lancets 33 gauge #100 ea 04/07/21 10/25/23 flash glucose sensor (FreeStyle #1 ea 05/04/23 10/25/23 Jaspal 2 Sensor kit) atorvastatin 40 mg tablet 40 mg PO DAILY 08/10/23 12/28/24 levothyroxine 112 mcg tablet 112 mcg PO DAILY 08/10/23 12/28/24 polyethylene glycol 3350 17 17 g PO DAILY 12/28/24 12/28/24 gram/dose oral powder (Miralax) losartan 100 mg tablet 100 mg PO DAILY 03/08/25 timolol maleate 0.5 % eye drops drp ophthalmic (eye) 03/08/25 tirzepatide 7.5 mg/0.5 mL mg subcut 03/08/25 subcutaneous pen injector (Tanner) Previous Rx's ?Medication ?Instructions ?Recorded sennosides 8.6 mg tablet (Natural 17.2 mg (2 x 8.6 mg) PO BEDTIME 04/01/23 Senna Laxative) constipation #180 tabs vitamin A palmitate 3,000 mcg 10,000 unit PO DAILY #90 caps 04/29/23 (10,000 unit) capsule baclofen 5 mg tablet 5 mg PO TID #60 tabs 11/02/23 linaclotide 145 mcg capsule 145 mcg PO QAM 30 days #30 caps 12/29/24 (Linzess) hydrocortisone 2.5 % topical cream 1 appl [place] BID-QID #28 grams 01/09/25 with perineal applicator (Procto-Med HC) amoxicillin 875 mg-potassium 1 tab PO BID #20 tabs 03/11/25 clavulanate 125 mg tablet ciprofloxacin 0.3 %-dexamethasone 4 drp otic (ear) right BID 10 days 03/11/25 0.1 % ear drops,suspension #7.5 mL Allergies Allergy/AdvReac Type Severity Reaction Status Date / Time No Known Allergies Allergy Verified 03/11/25 02:42 [No Known Allergies*] Review of Systems Review of Systems: Yes all other systems are reviewed and are negative [facility] Past Medical History Medical History Acute respiratory disease Fatty liver IBS (irritable bowel syndrome) History of COVID-19 Neurofibroma of multiple sites Hypothyroid PONV (postoperative nausea and vomiting) Diabetes High cholesterol HTN (hypertension) Surgical History History of excision of mass (08/16/23) S/P right knee arthroscopy (1994) Hx of laparoscopic gastric banding (04/23/21) History of hysterectomy (11/29/06) History of colonoscopy (02/04/21) Family History Family History Father Hx of type 2 diabetes mellitus History of high cholesterol Family history of high blood pressure Mother Hx of type 2 diabetes mellitus Family history of high blood pressure Brother High cholesterol Hypertension Brother High cholesterol Hypertension Brother Hypertension High cholesterol Sister Hypertension High cholesterol Daughter No problems noted. Daughter No problems noted. 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 Oriented X3. No acute distress. Eyes: no pallor or icterus right tympanic membrane with fluid behind in draining which is clear no blood noticed ENT: Pharynx erythema++ Oral Mucosa moist Neck: Normal inspection. Neck supple. CVS: Normal heart rate and rhythm. Pulses normal. Respiratory: No respiratory distress. Equal air entry bilateral, no wheezing/rales/rhonchi Abd: soft, not tender Skin: Skin warm and dry. Normal skin color. Normal skin turgor. Extremities: No lower extremity edema, no calf tenderness Neuro: Oriented X 3. Medications Administered Discontinued Medications Generic Name Dose Route Start Last Admin Trade Name Freq PRN Reason Stop Dose Admin Amoxicillin/Clavulanate Potassium 875 mg 03/11/25 03:08 03/11/25 03:21 Amoxicillin/Potassium Clav 875 Mg Tablet PO 03/11/25 03:09 875 mg ONCE ONE Administration Medical Decision Making Medical Decision Making [facility] Narrative: Patient's right otitis media likely perforation with purulent discharge from the right ear Lab Data [facility] Lab Attestation statement: I reviewed the patient's lab results. Labs: Lab Results 03/11/25 Range/Units 02:57 S. pyogenes GrpA DASHAWN Positive A (Negative) Discharge Plan Discharge Clinical Impression: Strep sore throat, Acute otitis media, right Patient Disposition: Home, Self-Care Instructions: Strep Throat (DC), Ear Infection (ED) Additional Instructions: Take antibiotic as prescribed Your drop twice a day till heals completely Follow up with ENT specialist after antibiotic is done Prescriptions: New amoxicillin-pot clavulanate 875-125 mg tablet 1 tab PO BID Qty: 20 0RF ciprofloxacin-dexamethasone 0.3-0.1 % drops,suspension 4 drp otic (ear) right BID 10 Days Qty: 7.5 0RF No Action Linzess 145 mcg capsule 145 mcg PO QAM 30 Days Qty: 30 3RF hydrocortisone [Procto-Med HC] 2.5 % cream with perineal applicator 1 appl [place] BID-QID Qty: 28 1RF lovastatin 20 mg tablet 20 mg PO DAILY cholecalciferol (vitamin D3) 25 mcg (1,000 unit) capsule 25 mcg PO DAILY (DME) lancets 33 gauge misc See Rx Instructions topical .MEDSUPPLY Qty: 100 Rx Instructions: As directed (DME) blood sugar diagnostic Strip See Rx Instructions .ROUTE .MEDSUPPLY Qty: 10 Rx Instructions: As directed (DME) blood-glucose meter Misc See Rx Instructions .ROUTE DIRECTED Qty: 1 Rx Instructions: As directed vitamin A palmitate 3,000 mcg (10,000 unit) capsule 10,000 unit PO DAILY Qty: 90 3RF sennosides [Natural Senna Laxative] 8.6 mg tablet 17.2 mg PO BEDTIME Qty: 180 3RF (DME) FreeStyle Jaspal 2 Sensor Kit See Rx Instructions .ROUTE Q2W Qty: 1 Rx Instructions: As directed baclofen 5 mg tablet 5 mg PO TID Qty: 60 0RF polyethylene glycol 3350 [Miralax] 17 gram/dose powder 17 g PO DAILY losartan 100 mg tablet 100 mg PO DAILY Mounjaro 7.5 mg/0.5 mL pen injector subcut timolol maleate 0.5 % drops ophthalmic (eye) levothyroxine 112 mcg tablet 112 mcg PO DAILY atorvastatin 40 mg tablet 40 mg PO DAILY Referrals: Farhat Stevenson [Physician] - 5 days Print Language: Slovak
[2025-03-11] MEDS: Amoxicillin/Potassium Clav 875 MG TABLET PO (03:21)
[2025-03-11 03:34] VITALS: BP 133/85; PULSE 98; RESP 16; TEMP 37.3; O2SAT 98
[2025-03-11 03:40] LABS: Influenza A PCR NEGATIVE (Negative); Influenza B PCR NEGATIVE (Negative); Resp Syncy Virus RNA Qual PCR NEGATIVE (Negative); SARS COV2 PCR INHOUSE NEGATIVE (Negative)
== END 2025-03-11 03:37 | disposition home or self-care (01) ==
PROVIDERS: Emergency Provider Internal Medicine; PCP Internal Medicine
DX: J02.0 Streptococcal pharyngitis (principal); H66.91 Otitis media, unspecified, right ear; R09.81 Nasal congestion; E03.9 Hypothyroidism, unspecified; I10 Essential (primary) hypertension; E11.9 Type 2 diabetes mellitus without complications; Z79.899 Other long term (current) drug therapy
CPT/HCPCS: 0241U; 87651; 99283; 99284

== ENCOUNTER 2025-03-31 06:35 | Outpatient (REF) | payer OTHER, SELFPAY ==
[2025-03-31 12:49] LABS: Alanine Aminotransferase 17 U/L (0-31); Albumin Level 3.6 g/dL (3.5-5.0); Anion Gap 12 (12-20); Aspartate Amino Transferase 35 U/L (5-31); Bilirubin Total 0.5 mg/dL (0.0-1.0); Blood Urea Nitrogen 10 mg/dL (9-16); Calcium 9.3 mg/dL (8.4-10.2); Carbon Dioxide 25 mmol/L (22-29); Chloride 106 mmol/L (96-108); Cholesterol 116 mg/dL (<200); Estimated Glomerular Filt Rate > 60; Glucose Random 115 mg/dL (60-115); HDL Cholesterol 32 mg/dL (>40); LDL Cholesterol Calculated 70 mg/dL (<100); Potassium 3.9 mmol/L (3.3-5.1); Sodium 139 mmol/L (135-145); Thyroid Stimulating Hormone 2.26 uIU/mL (0.32-4.0); Total Protein 7.4 g/dL (6.5-8.0); Triglycerides 74 mg/dL (<150)
[2025-03-31 12:55] LABS: Microalbum/Creatinine Ratio Ur 5.9 ug/mg cr (<30)
[2025-03-31 13:12] LABS: Alkaline Phosphatase 95 U/L (39-117)
== END 2025-03-31 06:36 | disposition home or self-care (01) ==
LOC: HO.HMGCLDS 06:35
PROVIDERS: PCP Physician Assistant Medical; Visit Provider Physician Assistant Medical
DX: E11.9 Type 2 diabetes mellitus without complications (principal); E03.9 Hypothyroidism, unspecified; E78.5 Hyperlipidemia, unspecified
CPT/HCPCS: 36415; 80053; 80061; 82043; 82570; 84443